=== PATIENT | male | born 1960 | race Caucasian/White ===

== ENCOUNTER 2020-04-08 15:22 | Outpatient (REF) | payer OTHER, SELFPAY ==
[2020-04-08 16:02] LABS: MANUAL DIFF FLAG NO
[2020-04-08 16:08] LABS: Basophils Percent Auto 0.7 % (0-2); Eosinophils Absolute Auto 0.1 X10*3/uL (0.0-0.4); Eosinophils Percent Auto 2.4 % (0-4); Hematocrit 44.4 % (42-52); Hemoglobin 14.2 g/dl (14.0-18.0); Imm Gran Abs Auto 0.02 X10*3/uL (0.00-0.03); Imm Gran Pct Auto 0.5 % (0.0-0.4); Lymphocytes Absolute Auto 1.1 X10*3/uL (1.2-4.9); Mean Corpuscular Hemoglobin 29.6 pg (27.0-33.0); Mean Corpuscular Volume 92.5 fL (80-98); Mean Platelet Volume 11.2 fL (9.4-12.4); Monocytes Absolute Auto 0.7 X10*3/uL (0.1-1.2); Monocytes Percent Auto 15.6 % (2-11); Neutrophils Absolute Auto 2.3 X10*3/uL (2.0-8.3); Neutrophils Percent Auto 53.8 % (45-73); Platelet Count 198 X10*3/uL (160-400); Red Cell Distribution Width 13.4 % (11.0-16.0); White Blood Count 4.2 X10*3/uL (4.8-10.8)
[2020-04-08 16:30] LABS: Alanine Aminotransferase 25 U/L (0-40); Albumin Level 4.1 g/dL (3.5-5.0); Alkaline Phosphatase 110 U/L (39-117); Anion Gap 9 (12-20); Aspartate Amino Transferase 21 U/L (5-37); Bilirubin Total 0.8 mg/dL (0.0-1.0); Blood Urea Nitrogen 18 mg/dL (9-16); Calcium 8.9 mg/dL (8.4-10.2); Carbon Dioxide 29 mmol/L (22-29); Chloride 102 mmol/L (96-108); Cholesterol 127 mg/dL; Estimated Glomerular Filt Rate > 60; Glucose Random 88 mg/dL (60-115); HDL Cholesterol 43 mg/dL; LDL Cholesterol Calculated 70 mg/dl; Potassium 4.2 mmol/L (3.3-5.1); Sodium 136 mmol/L (135-145); Total Protein 6.4 g/dL (6.5-8.0); Triglycerides 70 mg/dL
[2020-04-08 16:51] LABS: Prostate Specific Antigen 1.18 ng/mL (<0.05-4.0); T4 Thyroxine 9.7 ug/dL (4.5-12.0); Thyroid Stimulating Hormone 0.84 uIU/mL (0.32-4.0)
[2020-04-08 17:02] LABS: Folate 11.1 ng/mL (> or = 4.0); Vitamin B12 335 pg/mL (200-900)
== END 2020-04-08 15:23 | disposition home or self-care (01) ==
LOC: HO.LAB 15:22
PROVIDERS: PCP Internal Medicine; Visit Provider Internal Medicine
DX: Z00.00 Encounter for general adult medical examination without abnormal findings (principal); Z12.5 Encounter for screening for malignant neoplasm of prostate; E03.9 Hypothyroidism, unspecified; E66.9 Obesity, unspecified; E78.00 Pure hypercholesterolemia, unspecified
CPT/HCPCS: 36415; 80053; 80061; 82607; 82746; 84153; 84436; 84443; 85025

== ENCOUNTER 2020-11-30 08:33 | Outpatient (REF) | payer OTHER, SELFPAY ==
--- NOTE | ~2020-11-30 | FL_ITS ---
EXAMINATION: XR GI SERIES CLINICAL INFORMATION: Gastroesophageal reflux disease without esophagitis COMPARISON: None TECHNIQUE: Routine upper GI air-contrast study was performed. FINDINGS: Following oral administration of thick barium and effervescent granules there is normal propagation of bolus from the oral cavity through the pharynx, esophagus into stomach. There is no obstruction, narrowing or extrinsic compression. On placing patient supine and prone lying there is moderate gastroesophageal reflux with a small sliding hiatal hernia. The mucosal pattern of stomach and the duodenal bulb and the sweep is normal. FLUOROSCOPY TIME: 1.7 minutes DOSE AREA PRODUCT: 29.074 uGy-m2 (microgray-meter squared) FL/FL upper GI series IMPRESSION: Small sliding hiatal hernia with mild gastroesophageal reflux.
== END 2020-11-30 08:34 | disposition home or self-care (01) ==
LOC: HO.XRAY 08:33
PROVIDERS: Visit Provider Internal Medicine
DX: K21.9 Gastro-esophageal reflux disease without esophagitis (principal)
CPT/HCPCS: 74240

== ENCOUNTER 2021-04-12 13:31 | Outpatient (REF) | payer OTHER, SELFPAY ==
[2021-04-12 13:42] LABS: MANUAL DIFF FLAG NO
[2021-04-12 13:54] LABS: Basophils Percent Auto 0.6 % (0-2); Eosinophils Absolute Auto 0.2 X10*3/uL (0.0-0.4); Eosinophils Percent Auto 2.7 % (0-4); Hematocrit 50.4 % (42.0-52.0); Imm Gran Abs Auto 0.03 X10*3/uL (0.00-0.03); Imm Gran Pct Auto 0.5 % (0.0-0.4); Lymphocytes Absolute Auto 1.5 X10*3/uL (1.2-4.9); Lymphocytes Percent Auto 23.2 % (20-40); Mean Corpuscular HGB Conc 31.7 g/dl (31.0-36.0); Mean Corpuscular Hemoglobin 29.6 pg (27.0-33.0); Mean Corpuscular Volume 93.2 fL (80.0-98.0); Mean Platelet Volume 11.2 fL (9.4-12.4); Monocytes Absolute Auto 0.9 X10*3/uL (0.1-1.2); Monocytes Percent Auto 13.8 % (2-11); Neutrophils Absolute Auto 3.8 x10*3/uL (2.0-8.3); Neutrophils Percent Auto 59.2 % (45-73); Platelet Count 248 X10*3/uL (160-400); Red Blood Count 5.41 X10*6/uL (4.60-5.80); Red Cell Distribution Width 14.6 % (11.0-16.0); White Blood Count 6.4 X10*3/uL (4.8-10.8)
[2021-04-12 14:26] LABS: Alanine Aminotransferase 25 U/L (0-40); Alkaline Phosphatase 96 U/L (39-117); Anion Gap 12 (12-20); Aspartate Amino Transferase 20 U/L (5-37); Bilirubin Total 0.5 mg/dL (0.0-1.0); Blood Urea Nitrogen 18 mg/dL (9-16); Calcium 9.7 mg/dL (8.4-10.2); Carbon Dioxide 27 mmol/L (22-29); Chloride 106 mmol/L (96-108); Cholesterol 150 mg/dL; Estimated Glomerular Filt Rate > 60; Glucose Random 97 mg/dL (60-115); HDL Cholesterol 47 mg/dL; LDL Cholesterol Calculated 85 mg/dl; Potassium 4.9 mmol/L (3.3-5.1); Sodium 140 mmol/L (135-145); Total Protein 6.7 g/dL (6.5-8.0); Triglycerides 90 mg/dL
[2021-04-12 14:49] LABS: Free T4 (Free Thyroxine) 1.07 ng/dL (0.71-1.85); Thyroid Stimulating Hormone 3.68 uIU/mL (0.32-4.0)
[2021-04-12 15:33] LABS: Vitamin B12 451 pg/mL (200-900)
== END 2021-04-12 13:32 | disposition home or self-care (01) ==
LOC: HO.LAB 13:31
PROVIDERS: PCP Internal Medicine; Visit Provider Internal Medicine
DX: K21.9 Gastro-esophageal reflux disease without esophagitis (principal); E78.00 Pure hypercholesterolemia, unspecified
CPT/HCPCS: 36415; 80053; 80061; 82607; 82746; 84153; 84439; 84443; 85025

== ENCOUNTER 2021-11-19 10:19 | Outpatient (RCR) | payer OTHER, SELFPAY | END 2022-09-09 14:05 | disposition home or self-care (01) | LOC: HO.WCC 10:19 | PROVIDERS: PCP Internal Medicine; Visit Provider Physician Assistant | DX: Z09 Encounter for follow-up examination after completed treatment for conditions other than malignant neoplasm (principal); I87.2 Venous insufficiency (chronic) (peripheral); I73.9 Peripheral vascular disease, unspecified; Q82.0 Hereditary lymphedema; Z87.2 Personal history of diseases of the skin and subcutaneous tissue | CPT/HCPCS: 11042; 29580; 97597; 99212 ==

== ENCOUNTER 2022-05-12 15:29 | Outpatient (REF) | payer OTHER, SELFPAY ==
--- NOTE | ~2022-05-12 | XR_ITS ---
EXAMINATION: XR KNEE, LEFT CLINICAL INFORMATION: M25.562 - Pain in left knee COMPARISON: None available. TECHNIQUE: AP and lateral views of the left knee. FINDINGS: No fracture, dislocation, or destructive process. No focal joint narrowing or erosive change or visible chondrocalcinosis. There is mild thickening suprapatellar bursa consistent with borderline effusion. Hoffa's fat pad appears normal. XR/XR knee LT 2V IMPRESSION: Borderline effusion. No fracture, dislocation, or joint narrowing.
[2022-05-12 15:42] LABS: MANUAL DIFF FLAG NO
[2022-05-12 15:49] LABS: Basophils Absolute Auto 0.1 X10*3/uL (0.0-0.2); Basophils Percent Auto 0.8 % (0-2); Eosinophils Absolute Auto 0.1 X10*3/uL (0.0-0.4); Eosinophils Percent Auto 2.4 % (0-4); Hematocrit 48.7 % (42.0-52.0); Hemoglobin 16.2 g/dl (14.0-18.0); Imm Gran Abs Auto 0.03 X10*3/uL (0.00-0.03); Imm Gran Pct Auto 0.5 % (0.0-0.4); Lymphocytes Absolute Auto 1.5 X10*3/uL (1.2-4.9); Lymphocytes Percent Auto 25.3 % (20-40); Mean Corpuscular HGB Conc 33.3 g/dl (31.0-36.0); Mean Corpuscular Hemoglobin 30.2 pg (27.0-33.0); Mean Corpuscular Volume 90.9 fL (80.0-98.0); Mean Platelet Volume 11.1 fL (9.4-12.4); Monocytes Absolute Auto 0.8 X10*3/uL (0.1-1.2); Neutrophils Absolute Auto 3.4 x10*3/uL (2.0-8.3); Platelet Count 239 X10*3/uL (160-400); Red Blood Count 5.36 X10*6/uL (4.60-5.80); Red Cell Distribution Width 14.3 % (11.0-16.0); White Blood Count 5.9 X10*3/uL (4.8-10.8)
[2022-05-12 16:17] LABS: Alanine Aminotransferase 32 U/L (0-40); Albumin Level 3.9 g/dL (3.5-5.0); Alkaline Phosphatase 99 U/L (39-117); Anion Gap 13 (12-20); Aspartate Amino Transferase 24 U/L (5-37); Bilirubin Total 0.8 mg/dL (0.0-1.0); Blood Urea Nitrogen 25 mg/dL (9-16); Carbon Dioxide 24 mmol/L (22-29); Chloride 107 mmol/L (96-108); Cholesterol 149 mg/dL; Estimated Glomerular Filt Rate > 60; Glucose Random 96 mg/dL (60-115); HDL Cholesterol 44 mg/dL; LDL Cholesterol Calculated 89 mg/dl; Potassium 4.3 mmol/L (3.3-5.1); Sodium 140 mmol/L (135-145); Total Protein 6.4 g/dL (6.5-8.0); Triglycerides 81 mg/dL
[2022-05-12 16:47] LABS: Folate 11.8 ng/mL (> or = 4.0); Free T4 (Free Thyroxine) 1.12 ng/dL (0.71-1.85); Thyroid Stimulating Hormone 6.49 uIU/mL (0.32-4.0); Vitamin B12 477 pg/mL (200-900)
== END 2022-05-12 15:30 | disposition home or self-care (01) ==
LOC: HO.LAB 15:29
PROVIDERS: PCP Internal Medicine; Visit Provider Internal Medicine
DX: E78.00 Pure hypercholesterolemia, unspecified (principal); M25.562 Pain in left knee; E03.9 Hypothyroidism, unspecified
CPT/HCPCS: 36415; 73560; 80053; 80061; 82607; 82746; 84439; 84443; 85025

== ENCOUNTER 2022-08-16 09:01 | Outpatient (REF) | payer OTHER, SELFPAY ==
[2022-08-16 11:10] LABS: Alanine Aminotransferase 23 U/L (0-40); Albumin Level 4.1 g/dL (3.5-5.0); Alkaline Phosphatase 85 U/L (39-117); Anion Gap 15 (12-20); Aspartate Amino Transferase 18 U/L (5-37); Bilirubin Total 0.5 mg/dL (0.0-1.0); Blood Urea Nitrogen 26 mg/dL (9-16); Calcium 9.2 mg/dL (8.4-10.2); Carbon Dioxide 23 mmol/L (22-29); Chloride 103 mmol/L (96-108); Estimated Glomerular Filt Rate > 60; Glucose Random 88 mg/dL (60-115); Potassium 4.2 mmol/L (3.3-5.1); Sodium 137 mmol/L (135-145)
[2022-08-16 11:30] LABS: Free T4 (Free Thyroxine) 1.18 ng/dL (0.71-1.85); Thyroid Stimulating Hormone 4.12 uIU/mL (0.32-4.0)
== END 2022-08-16 09:02 | disposition home or self-care (01) ==
LOC: HO.LAB 09:01
PROVIDERS: PCP Internal Medicine; Visit Provider Internal Medicine
DX: E03.9 Hypothyroidism, unspecified (principal); L98.499 Non-pressure chronic ulcer of skin of other sites with unspecified severity
CPT/HCPCS: 36415; 80053; 84439; 84443

== ENCOUNTER 2022-08-26 11:42 | Outpatient (AMB) | payer OTHER, SELFPAY ==
--- NOTE | 2022-08-26 11:42 | A.OFFPC_ITS ---
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 Accompanied by: Self / Same As Patient Allergies No Known Allergies Allergy (Verified 08/26/22 11:43) Medication List - Last Reconciled 08/26/22 by Jess Turner MD acetaminophen 500 mg PO Q6H PRN cholecalciferol (vitamin D3) 50 mcg PO DAILY famotidine 20 mg PO BEDTIME levothyroxine 125 mcg PO QAM lovastatin 20 mg PO DAILY Tobacco use date assessed: 05/25/22 Dental Screening Dental Screen Date: 08/26/22 Did you have a dental visit in the last 12 months?: Yes Did you have a dental problem in the last 6 months where you did not have access to dental care?: No Was dental information given to patient?: Patient has dentist HPI Peripheral vasculardisease,hypothyroid,low protein HPI Details [age] year old obese male with hypothyroidism peripheral vascular disease ankle ulcer baking [facility] hypercholesterolemia GERD last seen in May and was advised blood work. Colonoscopy is up-to-date. PAtient had a procedure under Dr. Meza- 06/2022, bilateral ulcer right healed L still has the problem. awaiting compression pump for the LE patient has been doing good no nausea no vomiting no chest pains no shortness of breath no bowel bladder symptoms. PFSH Medical History Depression Foot deformity Hypercholesterolemia Hypothyroid Obesity (BMI 30-39.9) Tubular adenoma of colon Surgical History H/O foot surgery Hx of tonsillectomy Peripheral vascular disease Family History Mother Breast cancer in situ Social History Housing: House Alcohol intake: current Alcohol intake frequency: a few times a month Patient Tobacco Use Status: Never used Tobacco e-Cigarette/Vaping Use: Never Used Second Hand Smoke Exposure: No service: No Current occupational status: employed Cognitive needs: No Hearing needs: No Vision needs: No Questionnaire Thrive Questionnaire Date Thrive assessed: 05/25/22 I am a: Patient What is your living situation today?: I have a steady place to live Within the past 12 months, did the food you bought not last and you didn't have the money to get more?: Never true Within the past 12 months, did you worry whether your food would run out before you got money to buy more?: Never true Please select the resources that you would like help with: None MAGDA-7 AMB Questionnaire MAGDA-7 Date MAGDA - 7 assessed: 05/25/22 Source: Developed by Drs. Pan Stone, Desire Ann, Jonathan Gutierrez and colleagues, with an educational tal from [employer]. Physical exam (Primary Care) Vital Signs: Last Vital Signs Pulse 85 08/26/22 11:43 BP 126/78 08/26/22 11:43 Pulse Ox 97 08/26/22 11:43 Oxygen Delivery Method Room Air 08/26/22 11:43 BMI result Body Mass Index 35.6 Tobacco/Smoking Status: Tobacco use Status Tobacco use date assessed 05/25/22 08/26/22 11:48 Patient Tobacco Use Status Never used Tobacco 08/26/22 11:48 e-Cigarette/Vaping Use Never Used 08/26/22 11:48 Thrive Assessment: Date of Thrive Assessment Date Thrive assessed 05/25/22 08/26/22 11:48 Const General: alert; No acute distress Eyes Conjunctivae: conjunctivae normal Resp Auscultation: clear to auscultation bilaterally Cardio Rate: regular rate Rhythm: regular rhythm GI Inspection: Yes normal to inspection Extrem General: Yes normal to inspection and No edema Assessment and Plan Assessment & Plan (1) Ankle ulcer: Code(s): L97.309 - Non-pressure chronic ulcer of unspecified ankle with unspecified severity Plan: Patient is being managed by wound care (2) Hypercholesterolemia: Code(s): E78.00 - Pure hypercholesterolemia, unspecified Plan: Avoid fried foods, chicken skin, eggs, butter margarine, pastries and meat. Be it pork or beef they have a lot of cholesterol LDL goal below 70 and triglyceride of less than 150 (3) Obesity (BMI 30-39.9): Code(s): E66.9 - Obesity, unspecified Plan: Diet and exercise (4) Peripheral vascular disease: Comment: Dr. MEZA leg procedure laser EV LT Phlebectomy October 2017 Code(s): I73.9 - Peripheral vascular disease, unspecified Plan: Patient follows up with vascular surgeon (5) Hypothyroid: Code(s): E03.9 - Hypothyroidism, unspecified Qualifiers: Hypothyroidism type: acquired Qualified Code(s): E03.9 - Hypothyroidism, unspecified Plan: Continue with thyroid medication Orders: Orders Comprehensive Met. Panel 3 Months E78.00 - Pure hypercholesterolemia, unspecified Lipid Panel 3 Months E78.00 - Pure hypercholesterolemia, unspecified Complete Blood Count Auto Diff 3 Months E78.00 - Pure hypercholesterolemia, unspecified Medications: Refilled lovastatin 20 mg PO DAILY 90 tabs 2RF E78.00 - Pure hypercholesterolemia, unspecified Coding Level of Care Code Est Pt Level 4 (56115) Diagnoses Ankle ulcer L97.309 Hypercholesterolemia E78.00 Obesity (BMI 30-39.9) E66.9 Peripheral vascular disease I73.9 Hypothyroid E03.9 Hypothyroidism type: acquired
[2022-08-26 11:43] VITALS: BP 126/78; PULSE 85; O2SAT 97; BMI 35.6
== END 2022-08-26 13:27 | disposition home or self-care (01) ==
PROVIDERS: Visit Provider Internal Medicine
DX: E03.9 Hypothyroidism, unspecified (principal); L97.309 Non-pressure chronic ulcer of unspecified ankle with unspecified severity; Z68.35 Body mass index [BMI] 35.0-35.9, adult; I73.9 Peripheral vascular disease, unspecified; E78.00 Pure hypercholesterolemia, unspecified; E66.9 Obesity, unspecified
CPT/HCPCS: 99214

== ENCOUNTER 2022-11-15 10:09 | Outpatient (REF) | payer OTHER, SELFPAY | END 2022-11-15 10:10 | disposition home or self-care (01) | LOC: HO.LAB 10:09 | PROVIDERS: PCP Internal Medicine; Visit Provider Internal Medicine | DX: E78.00 Pure hypercholesterolemia, unspecified (principal); E03.9 Hypothyroidism, unspecified | CPT/HCPCS: 36415; 80053; 80061; 84439; 84443; 85025 ==

== ENCOUNTER 2022-11-21 08:57 | Outpatient (AMB) | payer OTHER, SELFPAY ==
[2022-11-21 09:01] VITALS: BP 132/80; PULSE 79; O2SAT 97; BMI 36.3
--- NOTE | 2022-11-21 09:01 | A.OFFPC_ITS ---
Vital Signs 11/21/22 09:01 Height 5 ft 10 in Weight 253 lb BMI 36.3 BP 132/80 Blood Pressure Location Lt brachial Position Sitting Pulse 79 Pulse Source Pulse Oximeter Temp Source Skin Pulse Oximetry (%) 97 Oxygen Delivery Method Room Air Intake Visit Reasons: PE Allergies No Known Allergies Allergy (Verified 11/21/22 09:03) Medication List - Last Reconciled 11/21/22 by Jess Turner MD acetaminophen 500 mg PO Q6H PRN cholecalciferol (vitamin D3) 50 mcg PO DAILY famotidine 20 mg PO BEDTIME levothyroxine 125 mcg PO QAM lovastatin 20 mg PO DAILY Tobacco use date assessed: 05/25/22 Dental Screening Dental Screen Date: 11/21/22 Did you have a dental visit in the last 12 months?: Yes Did you have a dental problem in the last 6 months where you did not have access to dental care?: No Was dental information given to patient?: Patient has dentist HPI PE HPI Details 62-year-old obese male with peripheral v ascular disease hypercholesterolemia hypothyroidism coming in for physical exam last seen in August 2022. Patient is up-to-date with colonoscopy February 2019. Patient has an ankle ulcer that is being followed up by Wound Care.. last injection with Dr. Meza done with wound care. has pump for lymphedema. [facility] Medical History Depression Foot deformity Hypercholesterolemia Hypothyroid Obesity (BMI 30-39.9) Tubular adenoma of colon Surgical History H/O foot surgery Hx of tonsillectomy Peripheral vascular disease Family History (Updated 11/21/22 @ 09:13 by Jess Turner MD) Mother Breast cancer in situ Son Thyroid cancer Social History (Updated 11/21/22 @ 09:14 by Jess Turner MD) Housing: House Alcohol intake: current Alcohol intake frequency: a few times a month Patient Tobacco Use Status: Never used Tobacco e-Cigarette/Vaping Use: Never Used Second Hand Smoke Exposure: No service: No Current occupational status: employed Cognitive needs: No Hearing needs: No Vision needs: No Questionnaire PHQ-9 Over the last 2 weeks, how often have you been bothered by any of the following problems? 1. Little interest or pleasure in doing things: not at all 2. Feeling down, depressed, or hopeless: not at all 3. Trouble falling or staying asleep, or sleeping too much: not at all 4. Feeling tired or having little energy: not at all 5. Poor appetite or overeating: not at all 6. Feeling bad about yourself - or that you are a failure or have let yourself or your family down: not at all 7. Trouble concentrating on things, such as reading the newspaper or watching television: not at all 8. Moving or speaking so slowly that other people could have noticed. Or the opposite - being so fidgety or restless that you have been moving around a lot more than usual: not at all 9. Thoughts that you would be better off or of hurting yourself in some way: not at all Total score: 0 Depression Screening Interpretation: Negative Depression Screening Done: Yes Source: Developed by Drs. Pan Stone, Desire Ann, Jonathan Gutierrez and colleagues, with an educational tal from [employer]. Thrive Questionnaire Date Thrive assessed: 05/25/22 AUDIT C Alcohol Use Questionnaire (AUDIT-C) 1. How often do you have a drink containing alcohol?: 2-4 times a month 2. How many drinks containing alcohol do you have on a typical day when you are drinking?: 1 or 2 3. How often do you have six or more drinks on one occasion?: Never Total Score: 2 MAGDA-7 AMB Questionnaire MAGDA-7 Date MAGDA - 7 assessed: 11/21/22 Feeling nervous, anxious, or on edge: 0 = Not at all Not being able to stop or control worryin = Not at all Worrying too much about different things: 0 = Not at all Trouble relaxin = Not at all Being so restless that it is hard to sit still: 0 = Not at all Becoming easily annoyed or irritable: 0 = Not at all Feeling afraid as if something awful might happen: 0 = Not at all Total MAGDA-7 score (0-4 normal; 5-9 mild; 10-14 moderate; 15-21 severe): 0 Source: Developed by Drs. Pan Stone, Jonathan Bullard and colleagues, with an educational tal from [employer]. Review of Systems Const Denies poor appetite and Denies weakness Eyes Denies no additional complaints ENT Reports Normal hearing present, Denies dizziness, Denies nasal congestion, Denies tinnitus and Denies sore throat Card Denies chest pain, Denies syncope, Denies rapid heart rate and Denies dyspnea Resp Denies cough and Denies dyspnea GI Denies change in stool character, Reports constipation, Denies diarrhea, Denies nausea and Denies vomiting Denies dysuria and Denies urinary frequency Neuro Reports Normal hearing present, Denies confusion, Denies dizziness, Denies syncope and Denies weakness Psych Denies confusion Physical exam (Primary Care) Vital Signs: Last Vital Signs Pulse 79 11/21/22 09:01 BP 132/80 11/21/22 09:01 Pulse Ox 97 11/21/22 09:01 Oxygen Delivery Method Room Air 11/21/22 09:01 BMI result Body Mass Index 36.3 Tobacco/Smoking Status: Tobacco use Status Tobacco use date assessed 05/25/22 11/21/22 09:06 Patient Tobacco Use Status Never used Tobacco 11/21/22 09:06 e-Cigarette/Vaping Use Never Used 11/21/22 09:06 PHQ-9: PHQ-9 Score PHQ-9: Total score 0 11/21/22 09:06 Depression Screening Interpretation: Negative Thrive Assessment: Date of Thrive Assessment Date Thrive assessed 05/25/22 11/21/22 09:06 Const General: No confusion Orientation/consciousness: No confusion HENMT Head: Yes normocephalic Ears: external ears normal and TM's normal bilaterally Face and sinus: Yes normal facial exam Mouth: moist mucous membranes Throat: Yes tonsils normal Eyes Conjunctivae: conjunctivae normal Pupils: Equal, round and reactive pupils present and Pupil accommodation reflex normal Direct Ophthalmoscopy: normal light reflex Neck Neck: No lymphadenopathy Thyroid: Thyroid normal Chest Chest palpation & inspection: normal inspection of the chest Resp Effort & Inspection: normal respiratory effort and no audible wheezes Auscultation: clear to auscultation bilaterally, no crackles, no wheezes and lung sounds not diminished Cardio Rate: regular rate Rhythm: regular rhythm Peripheral pulses: radial pulses present and dorsalis pedis present GI Other: guaiac stools negative Palpation (GI): no masses Auscultation: normal bowel sounds and normoactive bowel sounds Male General Exam: Yes normal external exam Skin General skin exam: no rashes or lesions noted Rashes: no rashes Neuro General: No confusion Cranial nerves: Yes Equal, round and reactive pupils present and Yes Normal hearing present Cognition (Neuro): normal cognition Gait exam (Neuro): Normal gait present Motor exam (neuro): 5/5 motor strength present throughout Deep tendon reflexes (DTR's): Right brachioradialis reflex intensity grade: 2+, Left brachioradialis reflex intensity grade: 2+, Right patellar reflex intensity grade: 2+ and Left patellar reflex intensity grade: 2+ Extrem Other: Interdigital on the toes bilaterally but pulses are good whitish skin General: No edema Assessment and Plan Assessment & Plan (1) Annual physical exam: Code(s): Z00.00 - Encounter for general adult medical examination without abnormal findings (2) Obesity (BMI 30-39.9): Code(s): E66.9 - Obesity, unspecified Plan: Diet and exercise (3) Hypercholesterolemia: Code(s): E78.00 - Pure hypercholesterolemia, unspecified Plan: Avoid fried foods, chicken skin, eggs, butter margarine, pastries and meat. Be it pork or beef they have a lot of cholesterol LDL goal of less than 130 and triglyceride of less than 150. Patient is on lovastatin 20 mg once a day (4) Hypothyroid: Code(s): E03.9 - Hypothyroidism, unspecified Qualifiers: Hypothyroidism type: acquired Qualified Code(s): E03.9 - Hypothyroidism, unspecified Plan: Continue with thyroid medication November 2022 last blood work (5) Peripheral vascular disease: Comment: Dr. MEZA leg procedure laser EV LT Phlebectomy October 2017 Code(s): I73.9 - Peripheral vascular disease, unspecified Plan: When sitting down elevate the legs, exercise, and support stockings. Continue to follow-up with vascular surgeon (6) GERD (gastroesophageal reflux disease): Code(s): K21.9 - Gastro-esophageal reflux disease without esophagitis Plan: Avoid the foods that causes that usually spicy foods, tomato products, juices, coffee, soda and foods that your sensitive to. After eating do not lie down, allow 3-4 hours before in lie down. And keep the head of bed above 30 degrees to avoid the acid from going up. (7) Ankle ulcer: Code(s): L97.309 - Non-pressure chronic ulcer of unspecified ankle with unspecified severity Plan: Patient follows up with with care (8) Tinea pedis of both feet: Code(s): B35.3 - Tinea pedis Plan: Discussed about athlete's foot cream twice a day for 1 month then can use antifungal powder for prevention. Reminded interdigital skin area Orders: Orders Thyroid Stimulating Hormone 6 Weeks E03.9 - Hypothyroidism, unspecified Prostate Specific Antigen Scr 6 Weeks E78.00 - Pure hypercholesterolemia, unspecified AMB EKG-In Office Today E03.9 - Hypothyroidism, unspecified Free T4 (Free Thyroxine) 6 Weeks E03.9 - Hypothyroidism, unspecified Medications: Changed From levothyroxine 125 mcg PO QAM 90 tabs 2RF E03.9 - Hypothyroidism, unspecified To levothyroxine 137 mcg PO QAM 90 tabs 2RF E03.9 - Hypothyroidism, unspecified Refilled famotidine 20 mg PO BEDTIME 90 tabs 3RF K21.9 - Gastro-esophageal reflux disease without esophagitis Coding Level of Care Code Est Pt Prev Care 40-64y(78178) Diagnoses Annual physical exam Z00.00 Obesity (BMI 30-39.9) E66.9 Hypercholesterolemia E78.00 Acquired hypothyroidism E03.9 Hypothyroidism type: acquired Peripheral vascular disease I73.9 GERD (gastroesophageal reflux disease) K21.9 Ankle ulcer L97.309 Tinea pedis of both feet B35.3
== END 2022-11-21 09:35 | disposition home or self-care (01) ==
PROVIDERS: Visit Provider Internal Medicine
DX: Z00.00 Encounter for general adult medical examination without abnormal findings (principal); I73.9 Peripheral vascular disease, unspecified; L97.309 Non-pressure chronic ulcer of unspecified ankle with unspecified severity; E66.9 Obesity, unspecified; Z68.36 Body mass index [BMI] 36.0-36.9, adult; E78.00 Pure hypercholesterolemia, unspecified; E03.9 Hypothyroidism, unspecified; K21.9 Gastro-esophageal reflux disease without esophagitis; B35.3 Tinea pedis
CPT/HCPCS: 99396

== ENCOUNTER 2023-01-13 07:16 | Outpatient (REF) | payer OTHER, SELFPAY ==
[2023-01-13 08:52] LABS: Free T4 (Free Thyroxine) 1.19 ng/dL (0.71-1.85); Thyroid Stimulating Hormone 1.27 uIU/mL (0.32-4.0)
== END 2023-01-13 07:17 | disposition home or self-care (01) ==
LOC: HO.LAB 07:16
PROVIDERS: PCP Internal Medicine; Visit Provider Internal Medicine
DX: Z12.5 Encounter for screening for malignant neoplasm of prostate (principal); E03.9 Hypothyroidism, unspecified; E78.00 Pure hypercholesterolemia, unspecified
CPT/HCPCS: 36415; 84153; 84439; 84443

== ENCOUNTER 2023-05-10 16:04 | Outpatient (REF) | payer OTHER, SELFPAY ==
[2023-05-10 16:14] LABS: MANUAL DIFF FLAG NO
[2023-05-10 17:35] LABS: Basophils Absolute Auto 0.1 X10*3/uL (0.0-0.2); Eosinophils Absolute Auto 0.2 X10*3/uL (0.0-0.4); Eosinophils Percent Auto 3.5 % (0-4); Hematocrit 44.9 % (42.0-52.0); Hemoglobin 14.5 g/dl (14.0-18.0); Imm Gran Abs Auto 0.04 X10*3/uL (0.00-0.03); Imm Gran Pct Auto 0.8 % (0.0-0.4); Lymphocytes Absolute Auto 1.4 X10*3/uL (1.2-4.9); Mean Corpuscular HGB Conc 32.3 g/dl (31.0-36.0); Mean Corpuscular Hemoglobin 29.7 pg (27.0-33.0); Mean Platelet Volume 11.6 fL (9.4-12.4); Monocytes Absolute Auto 0.7 X10*3/uL (0.1-1.2); Monocytes Percent Auto 13.3 % (2-11); Neutrophils Absolute Auto 2.8 x10*3/uL (2.0-8.3); Neutrophils Percent Auto 54.4 % (45-73); Platelet Count 217 X10*3/uL (160-400); Red Blood Count 4.88 X10*6/uL (4.60-5.80); Red Cell Distribution Width 13.9 % (11.0-16.0); White Blood Count 5.1 X10*3/uL (4.8-10.8)
[2023-05-10 18:19] LABS: Alanine Aminotransferase 27 U/L (0-40); Albumin Level 3.7 g/dL (3.5-5.0); Alkaline Phosphatase 96 U/L (39-117); Anion Gap 10 (12-20); Aspartate Amino Transferase 19 U/L (5-37); Bilirubin Total 0.4 mg/dL (0.0-1.0); Blood Urea Nitrogen 18 mg/dL (9-16); Calcium 9.1 mg/dL (8.4-10.2); Carbon Dioxide 28 mmol/L (22-29); Chloride 106 mmol/L (96-108); Cholesterol 118 mg/dL (<200); Estimated Glomerular Filt Rate > 60; Glucose Random 82 mg/dL (60-115); HDL Cholesterol 41 mg/dL (>40); LDL Cholesterol Calculated 67 mg/dL (<100); Sodium 140 mmol/L (135-145); Total Protein 6.4 g/dL (6.5-8.0); Triglycerides 54 mg/dL (<150)
[2023-05-10 18:28] LABS: Free T4 (Free Thyroxine) 1.21 ng/dL (0.71-1.85); Thyroid Stimulating Hormone 0.86 uIU/mL (0.32-4.0)
[2023-05-10 18:40] LABS: Folate 10.4 ng/mL (> or = 4.0); Prostate Specific Antigen Scr 1.07 ng/mL (<0.05-4.0); Vitamin B12 501 pg/mL (200-900)
== END 2023-05-10 16:05 | disposition home or self-care (01) ==
LOC: HO.LAB 16:04
PROVIDERS: PCP Internal Medicine; Visit Provider Internal Medicine
DX: Z12.5 Encounter for screening for malignant neoplasm of prostate (principal); E03.9 Hypothyroidism, unspecified; E78.00 Pure hypercholesterolemia, unspecified
CPT/HCPCS: 36415; 80053; 80061; 82607; 82746; 84153; 84439; 84443; 85025

== ENCOUNTER → 2023-05-11 07:13 | Outpatient (REF) | payer OTHER, SELFPAY ==
--- NOTE | 2023-05-11 07:57 | ECG_ITS ---
Test Reason : hypothyroidism Blood Pressure : / mmHG Vent. Rate : 094 BPM Atrial Rate : 308 BPM P-R Int : 000 ms QRS Dur : 146 ms QT Int : 396 ms P-R-T Axes : 077 062 028 degrees QTc Int : 495 ms Atrial flutter with variable A-V block with premature ventricular or aberrantly conducted complexes Right bundle branch block Abnormal ECG No previous ECGs available Referred By: Jess Turner Electronically Signed By:BERNIE IGLESIAS MD
== END ==
LOC: HO.CARD 07:13
PROVIDERS: PCP Internal Medicine; Visit Provider Internal Medicine
DX: E03.9 Hypothyroidism, unspecified (principal)
CPT/HCPCS: 93005

== ENCOUNTER → 2023-05-11 07:57 | Outpatient (BNV) | payer OTHER, SELFPAY | PROVIDERS: PCP Internal Medicine; Visit Provider Internal Medicine Cardiovascular Disease | DX: R94.31 Abnormal electrocardiogram [ECG] [EKG] (principal) | CPT/HCPCS: 93010 ==

== ENCOUNTER 2023-05-11 08:22 | Emergency (ER) | payer OTHER, SELFPAY ==
--- NOTE | ~2023-05-11 | XR_ITS ---
EXAMINATION: XR CHEST CLINICAL INFORMATION: Rapid heart rate COMPARISON: None available. TECHNIQUE: 2 views of the chest were obtained. FINDINGS: No significant abnormality is noted involving the heart, lungs, mediastinum, bony thorax or soft tissues. XR/XR chest 2V IMPRESSION: Unremarkable examination.
--- NOTE | 2023-05-11 08:25 | ECG_ITS ---
Test Reason : palpitations Blood Pressure : / mmHG Vent. Rate : 083 BPM Atrial Rate : 312 BPM P-R Int : 000 ms QRS Dur : 136 ms QT Int : 402 ms P-R-T Axes : 072 024 019 degrees QTc Int : 472 ms Atrial flutter with variable A-V block with premature ventricular or aberrantly conducted complexes Right bundle branch block Possible Inferior infarct , age undetermined Abnormal ECG When compared with ECG of 11-MAY-2023 08:02, Inferior infarct is now Present Referred By: Generic ED Physician Electronically Signed By:BERNIE IGLESIAS MD
[2023-05-11 08:39] VITALS: BP 135/83; PULSE 80; RESP 16; TEMP 36.8; O2SAT 98; BMI 33.9
--- NOTE | 2023-05-11 08:42 | ED_ITS ---
HPI - General Adult General Chief complaint: Arrhythmia/Palpitations Stated complaint: Aflutter Time Seen by Provider: 05/11/23 08:41 Source: patient Mode of arrival: ambulatory Limitations: no limitations History of Present Illness HPI narrative: Patient is a 62 year old assigned male at with a history of GERD, HLD, hypothyroidism, and PVD presenting to the emergency department today with a possible arrhythmia. Patient states that at his last PCP visit, his doctor heard something when listening to his heart and sent him for an EKG. States he was getting his EKG today and they brought him here. Patient states that he has gained some weight as of recently and has had some SOB with exertion but otherwise feels fine. Patient denies any dizziness, lightheadedness, abdominal pain, nausea, vomiting, fever, chills, blurry vision, double vision, loss of vision, chest pain, back pain, night sweats, pain with urination, increased urinary frequency, increased urinary urgency, blood in his urine or stool, syncope or a near syncopal episode, recent trauma or falls, bowel incontinence, bladder incontinence, bowel retention, bladder retention, or any other complaints at this time. Relieving factors: none Exacerbating factors: none Associated symptoms: shortness of breath (with exertion) Treatments prior to arrival: none Related Data Home Medications ?Medication ?Instructions ?Recorded ?Confirmed acetaminophen 500 mg tablet 500 mg PO Q6H PRN 04/28/20 11/21/22 cholecalciferol (vitamin D3) 50 50 mcg PO DAILY 04/28/20 11/21/22 mcg (2,000 unit) capsule Previous Rx's ?Medication ?Instructions ?Recorded lovastatin 20 mg tablet 20 mg PO DAILY #90 tabs 08/26/22 famotidine 20 mg tablet 20 mg PO BEDTIME #90 tabs 11/21/22 levothyroxine 137 mcg tablet 137 mcg PO QAM #90 tabs 11/21/22 apixaban 5 mg tablet (Eliquis) 5 mg PO BID #60 tabs 05/11/23 metoprolol succinate 25 mg 25 mg PO DAILY #30 tabs 05/11/23 tablet,extended release 24 hr Allergies Allergy/AdvReac Type Severity Reaction Status Date / Time No Known Allergies Allergy Verified 05/11/23 08:40 Review of Systems 2 Constitutional: Constitutional: Reports no additional constitutional complaints, Denies chills, Denies fever(s) and Denies night sweats Eyes: Eyes: Reports no additional eye complaints, Denies blurry vision, Denies change in vision, Denies diplopia, Denies eye discharge, Denies loss of vision and Denies eye pain ENT: Denies dizziness Cardiovascular: Cardiovascular: Reports no additional cardiovascular complaints, Denies chest pain, Denies lightheadedness, Denies Loss of Consciousness and Reports dyspnea (with exertion) Respiratory: Respiratory: Reports no additional respiratory complaints and Reports dyspnea (with exertion) Gastrointestinal: Gastrointestinal: Reports no additional gastrointestinal complaints, Denies abdominal pain, Denies melena, Denies hematochezia, Denies change in bowel habits and Denies change in stool character Genitourinary: Genitourinary: Reports no additional male genitourinary complaints, Denies hematuria, Denies oliguria, Denies difficulty urinating, Denies dysuria, Denies urinary frequency, Denies urinary hesitancy, Denies urinary incontinence and Denies urinary urgency Musculoskeletal: Musculoskeletal: Reports no additional musculoskeletal complaints, Denies numbness and Denies tingling Neurologic: Denies dizziness, Denies loss of vision, Denies numbness and Denies tingling Psychiatric: Psychiatric: Reports no additional psychiatric complaints Endocrine: Endocrine: Reports no additional endocrine complaints Hematologic/Lymphatic: Hematologic/Lymphatic: Reports no additional hematologic/lymphatic complaints Allergic/Immunologic: Allergic/Immunologic: Reports no additional allergic/immunologic complaints PMFSH Past Medical History Attestation statement: The following information was validated with the patient. Source: old records reviewed and nursing notes reviewed Medical History Tubular adenoma of colon Depression Hypercholesterolemia Obesity (BMI 30-39.9) Foot deformity Hypothyroid Surgical History Hx of tonsillectomy H/O foot surgery Peripheral vascular disease Family History Family History Mother Breast cancer in situ Son Thyroid cancer Social History Social History Housing: House Alcohol intake: current Alcohol intake frequency: a few times a month Patient Tobacco Use Status: Never used Tobacco e-Cigarette/Vaping Use: Never Used Second Hand Smoke Exposure: No Advance Directives: No Advance Directives Information Provided: No service: No Current occupational status: employed Cognitive needs: No Hearing needs: No Vision needs: No Physical Exam ED Vital Signs: Vital Signs - 24 hr 05/11/23 08:39 05/11/23 09:36 05/11/23 11:35 Temperature 98.3 F 97.7 F Pulse Rate 80 82 80 Respiratory Rate 16 14 18 Blood Pressure 135/83 143/86 H 127/69 Pulse Oximetry 98 100 Oxygen Delivery Method Room Air Room Air Room Air Oxygen Flow Rate 97 05/11/23 12:45 Temperature 97.7 F Pulse Rate 80 Respiratory Rate 18 Blood Pressure 127/69 Pulse Oximetry 97 Oxygen Delivery Method Room Air Oxygen Flow Rate BMI result Body Mass Index 33.9 Const General: cooperative, no acute distress, alert and awake Nutritional Appearance: well nourished Orientation/consciousness: patient oriented x3 Limitations: no limitations HENMT Head: Yes normal to inspection and Yes atraumatic Ears: hearing grossly normal bilaterally and external ears normal General nose exam: Normal external nose present, no nasal discharge noted and no epistaxis Face and sinus: Yes normal facial exam, No abrasion and No laceration Mouth: Normal oral and palatal mucosa present, no drooling and no muffled voice Eyes General: appearance normal, both eyes and all related structures Periorbital: periorbital findings normal Eyelids: Yes eyelids normal Conjunctivae: conjunctivae normal Pupils: Equal, round and reactive pupils present EOM: EOMs intact bilaterally Neck Neck: Yes normal visual inspection, Yes full ROM and Yes no lymphadenopathy Chest Chest palpation & inspection: normal inspection of the chest Resp Effort & Inspection: normal respiratory effort and able to speak in complete sentences Auscultation: clear to auscultation bilaterally Cardio Rate: regular rate Rhythm: abnormal rhythm irregularly irregular GI Inspection: Yes normal to inspection Neuro General: patient oriented x3 and moves all extremities Cranial nerves: Yes Equal, round and reactive pupils present Cognition (Neuro): normal cognition Motor exam (neuro): 5/5 motor strength present throughout Sensory Exam: Normal double simultaneous stimulation for sensation Coordination: [id number]-[id number] test normal Extrem General: Yes normal to inspection, Yes full ROM and Yes capillary refill normal Psych Appearance: grossly normal Mental Status: mental status grossly normal Affect: normal affect Attitude: cooperative Thought process: Normal thought process present Thought content: Normal thought content present Insight: Good insight present (Psych) Medical Decision Making Medical Decision Making [facility] Narrative: Patient is a 62 year old assigned male at with a history of GERD, HLD, hypothyroidism, and PVD presenting to the emergency department today with an arrhythmia. Patient's physical exam showed atrial fib/flutter. Patient's blood work was unremarkable. Patient's EKG showed atrial flutter. Patient's chest x- ray showed no acute process. Given this cardiac rhythm is new for the patient, I consulted with cardiology who recommended starting the patient on Eliquis and Metoprolol ER 25mg QAM and following up with their team on an outpatient basis. I explained my physical exam findings as well as all test results to the patient. I answered all questions asked by the patient. I stressed the importance of the patient taking his medication as prescribed. I stressed the importance of the patient following up with his primary care provider and a hospice liaison. I stressed the importance of the patient returning to the emergency department immediately if his symptoms were to worsen or if he were to develop any dizziness, shortness of breath, difficulty breathing, chest pain, blurry vision, loss of vision, nausea, vomiting, abdominal pain, fever, chills, back pain, or any other complaints. Patient verbalized agreement and understanding with this treatment plan and discharge. Differential Diagnosis Differential Diagnoses: The differential diagnosis associated with the presentation includes Atrial flutter Atrial fibrillation Arrhythmia Admission/Observation Consideration of admission/observation: Escalation of care including admission/observation considered Patient would have been admitted to the hospital had his work up had any findings where hospital admission was appropriate and his clinical presentation warranted hospital admission. Consult Healthcare Provider Management of the patient was discussed with: Teacher Education Director (spoke with the cardiology team as noted in the MDM Rationale portion of this note.) Lab Data [facility] Lab Attestation statement: I reviewed the patient's lab results. My interpretation of these results are in the MDM Rationale portion of this note. 05/11/23 09:40 05/11/23 09:40 Labs: Lab Results 05/11/23 Range/Units 09:40 WBC 5.0 (4.8-10.8) X10*3/uL RBC 4.77 (4.60-5.80) X10*6/uL Hgb 14.1 (14.0-18.0) g/dl Hct 43.7 (42.0-52.0) % MCV 91.6 (80.0-98.0) fL MCH 29.6 (27.0-33.0) pg MCHC 32.3 (31.0-36.0) g/dl RDW 13.9 (11.0-16.0) % Plt Count 209 (160-400) X10*3/uL MPV 10.8 (9.4-12.4) fL Immature Gran % (Auto) 1.2 H (0.0-0.4) % Neut % (Auto) 63.7 (45-73) % Lymph % (Auto) 19.6 L (20-40) % Dixon % (Auto) 11.9 H (2-11) % Eos % (Auto) 2.6 (0-4) % Baso % (Auto) 1.0 (0-2) % Lymph # (Auto) 1.0 L (1.2-4.9) X10*3/uL Dixon # (Auto) 0.6 (0.1-1.2) X10*3/uL Eos # (Auto) 0.1 (0.0-0.4) X10*3/uL Baso # (Auto) 0.1 (0.0-0.2) X10*3/uL Abs Immat Gran (auto) 0.06 H (0.00-0.03) X10*3/uL Absolute Neuts (auto) 3.2 (2.0-8.3) x10*3/uL Absolute Nucleated RBC 0.000 (0.0-0.012) X10*3/uL Nucleated RBC % (auto) 0.0 (0.0-0.2) /100WBC Sodium 138 (135-145) mmol/L Potassium 4.5 (3.3-5.1) mmol/L Chloride 107 (96-108) mmol/L Carbon Dioxide 25 (22-29) mmol/L Anion Gap 11 L (12-20) BUN 26 H (9-16) mg/dL Creatinine 1.22 (0.5-1.4) mg/dL Estim Creat Clear Calc 82.6 Estimated GFR > 60 Random Glucose 108 (60-115) mg/dL Calcium 8.9 (8.4-10.2) mg/dL Magnesium 2.4 (1.6-2.6) mg/dL Total Bilirubin 0.3 (0.0-1.0) mg/dL AST 20 (5-37) U/L ALT 26 (0-40) U/L Alkaline Phosphatase 92 (39-117) U/L Troponin I High Sens < 2.7 (<3.5-35.0) ng/L B-Natriuretic Peptide 25 (<100) pg/mL Total Protein 6.6 (6.5-8.0) g/dL Albumin 3.9 (3.5-5.0) g/dL TSH 0.75 (0.32-4.0) uIU/mL Influenza Type A (PCR) NEGATIVE (Negative) Influenza Type B (PCR) NEGATIVE (Negative) RSV RNA Qual (PCR) NEGATIVE (Negative) SARS-CoV-2 RNA (RT-PCR) NEGATIVE (Negative) Independent Interpretation I performed an independent interpretation of an: EKG and Plain X-Ray Interpretation: My interpretation is in agreement with the radiologist's impression of this imaging study. - EXAMINATION: XR CHEST CLINICAL INFORMATION: Rapid heart rate COMPARISON: None available. TECHNIQUE: 2 views of the chest were obtained. FINDINGS: No significant abnormality is noted involving the heart, lungs, mediastinum, bony thorax or soft tissues. XR/XR chest 2V IMPRESSION: Unremarkable examination. Dictated By: Gustavo Howard MD Signed By: Electronically signed by Gustavo Howard MD 05/11/23 0949 - Vent. Rate: 083 BPM Atrial Rate: 312 BPM P-R Int: 000 ms QRS Dur: 136 ms QT Int: 402 ms P-R-T Axes: 072 024 019 degrees QTc Int: 472 ms Atrial flutter with variable A-V block with premature ventricular or aberrantly conducted complexes Right bundle branch block Possible Inferior infarct , age undetermined Abnormal ECG When compared with ECG of 11-MAY-2023 08:02, Inferior infarct is now Present Electronically Signed By:JORGE IGLESIAS MD Dictated By: Jorge Iglesias MD Signed By: Electronically signed by Jorge Iglesias MD 05/11/23 0957 Radiology Impression Discussion of test interpretation with radiology: I have reviewed the radiologist's reading. Prescription Management I considered prescription management with: Other (patient started on Eliquis and Metoprolol) Critical Care Time Critical Care Time Critical Care Time: Yes Total Critical Care Time: 77 Attestation: I spent 77 minutes of Critical Care Time with this patient. This does not include time spent on separately reported billable procedures. Discharge Plan Discharge Clinical Impression: Atrial fibrillation/flutter Patient Disposition: Home, Self-Care Instructions: Atrial Flutter (DC), Blood Thinners (ED) Additional Instructions: Follow up with your primary care provider and the hospice liaison. Return to the emergency department immediately if your symptoms worsen or if you develop any dizziness, shortness of breath, difficulty breathing, chest pain, blurry vision, loss of vision, nausea, vomiting, abdominal pain, fever, chills, back pain, or any other complaints. Prescriptions: New Eliquis 5 mg tablet 5 mg PO BID Qty: 60 0RF metoprolol succinate 25 mg tablet extended release 24 hr 25 mg PO DAILY Qty: 30 0RF No Action cholecalciferol (vitamin D3) 50 mcg (2,000 unit) capsule 50 mcg PO DAILY acetaminophen 500 mg tablet 500 mg PO Q6H PRN famotidine 20 mg tablet 20 mg PO BEDTIME Qty: 90 3RF levothyroxine 137 mcg tablet 137 mcg PO QAM Qty: 90 2RF lovastatin 20 mg tablet 20 mg PO DAILY Qty: 90 2RF Referrals: [facility] [place] Cardiovascular Services [Provider Group] (Call to establish and follow up with a hospice liaison. I consulted Dr. Iglesias during your ED visit on 05/11/2023.) Jess Turner MD [Primary Care Provider] - Stand Alone Forms: Work/School Release Interventions: ED Discharge Assessment Last Done: 05/11/23 12:45 Discharge Date/Time: 05/11/23 12:47 Print Language: Lao
[2023-05-11 09:36] VITALS: BP 143/86; PULSE 82; RESP 14; O2SAT 100
[2023-05-11 09:45] LABS: MANUAL DIFF FLAG NO
[2023-05-11 09:46] LABS: Basophils Absolute Auto 0.1 X10*3/uL (0.0-0.2); Eosinophils Absolute Auto 0.1 X10*3/uL (0.0-0.4); Eosinophils Percent Auto 2.6 % (0-4); Hematocrit 43.7 % (42.0-52.0); Hemoglobin 14.1 g/dl (14.0-18.0); Imm Gran Abs Auto 0.06 X10*3/uL (0.00-0.03); Imm Gran Pct Auto 1.2 % (0.0-0.4); Lymphocytes Percent Auto 19.6 % (20-40); Mean Corpuscular HGB Conc 32.3 g/dl (31.0-36.0); Mean Corpuscular Hemoglobin 29.6 pg (27.0-33.0); Mean Corpuscular Volume 91.6 fL (80.0-98.0); Mean Platelet Volume 10.8 fL (9.4-12.4); Monocytes Absolute Auto 0.6 X10*3/uL (0.1-1.2); Monocytes Percent Auto 11.9 % (2-11); Neutrophils Absolute Auto 3.2 x10*3/uL (2.0-8.3); Neutrophils Percent Auto 63.7 % (45-73); Platelet Count 209 X10*3/uL (160-400); Red Blood Count 4.77 X10*6/uL (4.60-5.80); Red Cell Distribution Width 13.9 % (11.0-16.0)
[2023-05-11 10:03] LABS: Alanine Aminotransferase 26 U/L (0-40); Albumin Level 3.9 g/dL (3.5-5.0); Alkaline Phosphatase 92 U/L (39-117); Anion Gap 11 (12-20); Aspartate Amino Transferase 20 U/L (5-37); Bilirubin Total 0.3 mg/dL (0.0-1.0); Blood Urea Nitrogen 26 mg/dL (9-16); Calcium 8.9 mg/dL (8.4-10.2); Carbon Dioxide 25 mmol/L (22-29); Chloride 107 mmol/L (96-108); Creatinine Clr Calc Pharmacy 82.6; Estimated Glomerular Filt Rate > 60; Glucose Random 108 mg/dL (60-115); Magnesium 2.4 mg/dL (1.6-2.6); Potassium 4.5 mmol/L (3.3-5.1); Sodium 138 mmol/L (135-145); Total Protein 6.6 g/dL (6.5-8.0)
[2023-05-11 10:12] LABS: Troponin-I High Sensitivity < 2.7 ng/L (<3.5-35.0)
[2023-05-11 10:33] LABS: Influenza A PCR NEGATIVE (Negative); Influenza B PCR NEGATIVE (Negative); Resp Syncy Virus RNA Qual PCR NEGATIVE (Negative); SARS COV2 PCR INHOUSE NEGATIVE (Negative)
[2023-05-11 10:53] LABS: B Type Natriuretic Peptide 25 pg/mL (<100)
[2023-05-11 11:35] VITALS: BP 127/69; PULSE 80; RESP 18; TEMP 36.5
--- NOTE | 2023-05-11 11:56 | PC.NURSE ---
patient continues to rest quietly in room, no complaints. denies any chest pain. pending dispo at this time - remains in aflutter asymptomatic
[2023-05-11 11:58] LABS: TSH reflex Free T4 0.75 uIU/mL (0.32-4.0)
[2023-05-11 12:45] VITALS: BP 127/69; PULSE 80; RESP 18; TEMP 36.5; O2SAT 97
== END 2023-05-11 12:47 | disposition home or self-care (01) ==
PROVIDERS: Physician Assistant Medical; Emergency Provider Emergency Medicine; PCP Internal Medicine
DX: I49.9 Cardiac arrhythmia, unspecified (principal); I48.91 Unspecified atrial fibrillation; I48.92 Unspecified atrial flutter; R00.2 Palpitations; R06.02 Shortness of breath; Z11.52 Encounter for screening for COVID-19; Z20.822 Contact with and (suspected) exposure to COVID-19; Z79.899 Other long term (current) drug therapy
CPT/HCPCS: 0241U; 36415; 71046; 80053; 83735; 83880; 84443; 84484; 85025; 93005; 99283; 99285

== ENCOUNTER 2023-05-23 08:45 | Outpatient (AMB) | payer OTHER, SELFPAY ==
[2023-05-23 08:46] VITALS: BP 132/70; PULSE 81; O2SAT 98; BMI 34.3
--- NOTE | 2023-05-23 08:46 | A.OFFPC_ITS ---
Vital Signs 05/23/23 08:46 Height 6 ft Weight 253 lb BMI 34.3 BP 132/70 Blood Pressure Location Lt brachial Position Sitting Pulse 81 Pulse Source Pulse Oximeter Pulse Oximetry (%) 98 Oxygen Delivery Method Room Air Intake Visit Reasons: 6 month f/u Allergies No Known Allergies Allergy (Verified 05/23/23 08:47) Medication List - Last Reconciled 05/23/23 by Jess Turner MD acetaminophen 500 mg PO Q6H PRN apixaban (Eliquis) 5 mg PO BID cholecalciferol (vitamin D3) 50 mcg PO DAILY famotidine 20 mg PO BEDTIME levothyroxine 137 mcg PO QAM lovastatin 20 mg PO DAILY metoprolol succinate ER 25 mg PO DAILY Tobacco use date assessed: 05/23/23 Dental Screening Dental Screen Date: 05/23/23 Did you have a dental visit in the last 12 months?: Yes Did you have a dental problem in the last 6 months where you did not have access to dental care?: No Was dental information given to patient?: Patient has dentist HPI 6 month f/u HPI0 Details 62-year-old obese male with hypercholest erolemia hypothyroidism peripheral vascular disease GERD coming in for follow-up. Last seen in November 2022 for physical exam. Patient is up-to-date with colonoscopy February 2024 years. Review of the notes in May 2023 ER visit for arrhythmia EKG requested occasional short of breath results of the EKG shows atrial flutter right bundle branch block possible inferior infarct. 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 but does get tired easily, PFSH Medical History Tubular adenoma of colon Depression Hypercholesterolemia Obesity (BMI 30-39.9) Foot deformity Hypothyroid Surgical History Hx of tonsillectomy H/O foot surgery Peripheral vascular disease Family History Mother Breast cancer in situ Son Thyroid cancer Social History Housing: House Alcohol intake: current Alcohol intake frequency: a few times a month Patient Tobacco Use Status: Never used Tobacco e-Cigarette/Vaping Use: Never Used Second Hand Smoke Exposure: No service: No Current occupational status: employed Cognitive needs: No Hearing needs: No Vision needs: No Questionnaire PHQ-9 Over the last 2 weeks, how often have you been bothered by any of the following problems? 1. Little interest or pleasure in doing things: not at all 2. Feeling down, depressed, or hopeless: not at all 3. Trouble falling or staying asleep, or sleeping too much: not at all 4. Feeling tired or having little energy: not at all 5. Poor appetite or overeating: not at all 6. Feeling bad about yourself - or that you are a failure or have let yourself or your family down: not at all 7. Trouble concentrating on things, such as reading the newspaper or watching television: not at all 8. Moving or speaking so slowly that other people could have noticed. Or the opposite - being so fidgety or restless that you have been moving around a lot more than usual: not at all 9. Thoughts that you would be better off or of hurting yourself in some way: not at all Total score: 0 Depression Screening Interpretation: Negative Depression Screening Done: Yes Source: Developed by Drs. Pan Stone, Desire Ann, Jonathan Gutierrez and colleagues, with an educational tal from [employer] Thrive Questionnaire Date Thrive assessed: 05/23/23 I am a: Patient What is your living situation today?: I have a steady place to live Within the past 12 months, did the food you bought not last and you didn't have the money to get more?: Never true Within the past 12 months, did you worry whether your food would run out before you got money to buy more?: Never true Do you have trouble paying for medicines?: No Do you have trouble getting transportation to medical appointments?: No Do you have trouble paying your heating and electricity bill?: No Do you have trouble taking care of your child, family member or friend?: No Do you have trouble with day-to-day activities such as bathing, preparing meals, shopping, managing finances, etc.?: No Are you currently unemployed and looking for a job?: No Are you interested in more education?: No Currently or been in a relationship where the following occur: no concerns reported THRIVE Score: 0 AUDIT C Alcohol Use Questionnaire (AUDIT-C) 1. How often do you have a drink containing alcohol?: 2-4 times a month 2. How many drinks containing alcohol do you have on a typical day when you are drinking?: 1 or 2 3. How often do you have six or more drinks on one occasion?: Never Total Score: 2 MAGDA-7 AMB Questionnaire MAGDA-7 Date MAGDA - 7 assessed: 05/23/23 Feeling nervous, anxious, or on edge: 0 = Not at all Not being able to stop or control worryin = Not at all Worrying too much about different things: 0 = Not at all Trouble relaxin = Not at all Being so restless that it is hard to sit still: 0 = Not at all Becoming easily annoyed or irritable: 0 = Not at all Feeling afraid as if something awful might happen: 0 = Not at all Total MAGDA-7 score (0-4 normal; 5-9 mild; 10-14 moderate; 15-21 severe): 0 Source: Developed by Drs. Pan Stone, Desire Ann, Jonathan Gutierrez and colleagues, with an educational tal from [employer] Physical exam (Primary Care) Vital Signs: Last Vital Signs Pulse 81 05/23/23 08:46 BP 132/70 05/23/23 08:46 Pulse Ox 98 05/23/23 08:46 Oxygen Delivery Method Room Air 05/23/23 08:46 BMI result Body Mass Index 34.3 Tobacco/Smoking Status: Tobacco use Status Tobacco use date assessed 05/23/23 05/23/23 08:52 Patient Tobacco Use Status Never used Tobacco 05/23/23 08:52 e-Cigarette/Vaping Use Never Used 05/23/23 08:52 PHQ-9: PHQ-9 Score PHQ-9: Total score 0 05/23/23 08:58 Depression Screening Interpretation: Negative Thrive Assessment: Date of Thrive Assessment Date Thrive assessed 05/23/23 05/23/23 08:52 Currently or been in a relationship where the following occur: no concerns reported Const General: alert; No acute distress Eyes Conjunctivae: conjunctivae normal Resp Auscultation: clear to auscultation bilaterally Cardio Rate: regular rate Rhythm: regular rhythm GI Inspection: Yes normal to inspection Extrem General: Yes normal to inspection and No edema Assessment and Plan Assessment & Plan (1) Atrial fibrillation: Comment: May 2023 Code(s): I48.91 - Unspecified atrial fibrillation Plan: Chads Vasc score 1, no need for anticoagulation right now but will work the hard up. (2) Obesity (BMI 30-39.9): Code(s): E66.9 - Obesity, unspecified Plan: Diet and exercise (3) Hypercholesterolemia: Code(s): E78.00 - Pure hypercholesterolemia, unspecified Plan: Avoid fried foods, chicken skin, eggs, butter margarine, pastries and meat. Be it pork or beef they have a lot of cholesterol LDL goal of less than 130 and triglyceride of less than 150. (4) GERD (gastroesophageal reflux disease): Code(s): K21.9 - Gastro-esophageal reflux disease without esophagitis Plan: Avoid the foods that causes that usually spicy foods, tomato products, juices, coffee, soda and foods that your sensitive to. After eating do not lie down, allow 3-4 hours before in lie down. And keep the head of bed above 30 degrees to avoid the acid from going up. (5) Peripheral vascular disease: Comment: Dr. RUTHERFORD leg procedure laser EV LT Phlebectomy October 2017 Code(s): I73.9 - Peripheral vascular disease, unspecified Plan: When sitting down elevate the legs, exercise, and support stockings (6) Hypothyroid: Code(s): E03.9 - Hypothyroidism, unspecified Qualifiers: Hypothyroidism type: acquired Qualified Code(s): E03.9 - Hypothyroidism, unspecified Plan: Continue with thyroid medication. Orders: Orders RT home sleep study Today I48.91 - Unspecified atrial fibrillation CA echo transthoracic complete Today I48.91 - Unspecified atrial fibrillation Referrals Cardiology Referral I48.91 - Unspecified atrial fibrillation Coding Level of Care Code Est Pt Level 4 (28696) Diagnoses Atrial fibrillation I48.91 Obesity (BMI 30-39.9) E66.9 Hypercholesterolemia E78.00 GERD (gastroesophageal reflux disease) K21.9 Peripheral vascular disease I73.9 Acquired hypothyroidism E03.9 Hypothyroidism type: acquired
== END 2023-05-23 09:17 | disposition home or self-care (01) ==
PROVIDERS: PCP Internal Medicine; Visit Provider Internal Medicine
DX: I48.91 Unspecified atrial fibrillation (principal); E78.00 Pure hypercholesterolemia, unspecified; K21.9 Gastro-esophageal reflux disease without esophagitis; I73.9 Peripheral vascular disease, unspecified; E03.9 Hypothyroidism, unspecified
CPT/HCPCS: 99214

== ENCOUNTER 2023-06-16 08:25 | Outpatient (AMB) | payer OTHER, SELFPAY ==
--- NOTE | 2023-06-16 08:26 | A.OFFVIS_ITS ---
Vital Signs 06/16/23 08:27 Height 6 ft Weight 252 lb 3.341 oz BMI 34.2 BP 132/80 Blood Pressure Location Rt brachial Position Sitting Pulse 83 Pulse Source Monitor Intake Visit Reasons: [facility] ER / EKG Print Line Inspector Required: No Allergies No Known Allergies Allergy (Verified 06/16/23 08:29) Medication List - Last Reconciled 06/16/23 by EMBER Gray acetaminophen 500 mg PO Q6H PRN apixaban (Eliquis) 5 mg PO BID cholecalciferol (vitamin D3) 50 mcg PO DAILY famotidine 20 mg PO BEDTIME levothyroxine 137 mcg PO QAM lovastatin 20 mg PO DAILY metoprolol succinate ER 25 mg PO DAILY HPI HPI [facility] ER / EKG: Details: Doug is a 62-year-old male past medical history of obesity, hyperlipidemia, hypothyroidism, peripheral vascular disease who had irregular heartbeat noted at PCP office an EKG confirmed atrial flutter. Was sent for ER evaluation on that day, 05/11/2023. He was started on metoprolol for heart rate control and Eliquis for anticoagulation. He was referred to Cardiology in follow-up. Today presents for cardiology consultation. Tells me he has been feeling good with no concerning symptoms. Has some mild shortness of breath with stair climbing but states that this is not new for him. Does not notice any heart palpitations. He has no chest discomfort at rest or with activity. No li ghtheadedness, presyncope, syncope, falls. 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 He ran out of [employer] 2 days ago. He has not had any neurological changes. He has no cardiac history prior to this. He reports no family history of heart disease or known atrial fibrillation. He uses alcohol only occasionally. He is a nonsmoker. He has no known history of sleep apnea. [facility] Medical History Tubular adenoma of colon Depression Hypercholesterolemia Obesity (BMI 30-39.9) Foot deformity Hypothyroid Surgical History Hx of tonsillectomy H/O foot surgery Peripheral vascular disease Family History Mother Breast cancer in situ Son Thyroid cancer Social History Housing: House Alcohol intake: current Alcohol intake frequency: a few times a month Patient Tobacco Use Status: Never used Tobacco e-Cigarette/Vaping Use: Never Used Second Hand Smoke Exposure: No service: No Current occupational status: employed Cognitive needs: No Hearing needs: No Vision needs: No Review of Systems Const All systems reviewed & are unremarkable except as noted in HPI and below ENT Denies dizziness Card Denies chest pain, Denies chest pain at rest, Denies chest pain with activity, Denies rapid heart rate, Denies pedal edema, Denies edema, Denies leg edema, Denies lightheadedness, Denies palpitations, Denies dyspnea, Reports dyspnea on exertion and Denies orthopnea Resp Denies cough, Denies dyspnea and Reports dyspnea on exertion GI Denies hematochezia and Denies change in stool character Musc Denies abnormal gait, Denies limited range of motion, Denies muscle cramps, Denies muscle weakness, Denies numbness, Denies radiating pain into limb, Denies stiffness and Denies tingling Neuro Denies abnormal gait, Denies dizziness, Denies numbness and Denies tingling Endo Denies palpitations Physical Exam Vital Signs: Last Vital Signs Pulse 83 06/16/23 08:27 BP 132/80 06/16/23 08:27 BMI result Body Mass Index 34.2 Const General: cooperative, healthy appearing, comfortable and no acute distress Orientation/consciousness: patient oriented x3 Neck Neck: Yes normal visual inspection and Yes no JVD Resp Effort & Inspection: normal respiratory effort Auscultation: clear to auscultation bilaterally, no crackles, no rales, no rhonchi and no wheezes Cardio Jugular venous distension: no JVD Rate: regular rate Rhythm: regular rhythm Heart sounds: S1 normal heart sound present, S2 normal heart sound present, no murmurs and no rubs Neuro General: patient oriented x3 Extrem General: Yes normal to inspection and No no pedal edema Psych Appearance: grossly normal Mental Status: mental status grossly normal Speech and movement: Normal speech and movement present Office Procedures EKG Details: Today, read by me, atrial flutter, right bundle branch block, inferior Q-wave, rate 83, QTC 481 milliseconds [id number], Complete Assessment & Plan Assessment & Plan (1) Atrial flutter: Code(s): I48.92 - Unspecified atrial flutter Category: Medical Plan: Newer finding of atrial flutter on EKG 05/11/2023. He was 1st noticed to have irr egular pulse in his PCP office and sent for EKG. He did have ER evaluation with labs showing TSH 0.75, troponin normal, creatinine 1.22. Chest x-ray no active disease. He was put on metoprolol for heart rate control. He was put on Eliquis for anticoagulation. Today he reports he has been feeling well with only mild shortness of breath with stair climbing which is not new. He does not have any heart palpitations. He ran out of Eliquis 2 days ago. EKG done today confirming atrial fibrillation/flutter, rate 83. He has sleep study and echocardiogram already ordered by PCP. Will order a pharmacological nuclear stress test to evaluate for any ischemia. Planning for cardioversion in 4 weeks' time. Diagnosis of atrial fibrillation/flutter reviewed with patient including stroke risk, med management, cardioversion procedure and needed testing. States understanding and is agreeable to proceed. Instructed on restarting Eliquis and not to miss any doses going forward. Continue metopr olol. Cardiology office visit in 6 weeks, sooner if needed. (2) Obesity (BMI 30-39.9): Code(s): E66.9 - Obesity, unspecified Category: Medical Plan: BMI 34.2. Will be evaluating him for sleep apnea which can contribute to atrial fibrillation (3) Peripheral vascular disease: Comment: Dr. RUTHERFORD leg procedure laser EV LT Phlebectomy October 2017 Code(s): I73.9 - Peripheral vascular disease, unspecified Category: Surgical Plan: History of peripheral vascular disease in his lower extremities. He reports having vein ablations in the past. He follows with Dr. Rutherford for vascular Plan Time spent on chart review, documentation, interview and assessment Orders: Orders CA lexiscan stress w julianne Today I48.92 - Unspecified atrial flutter NM cardiolite stress test Today I48.92 - Unspecified atrial flutter CA echo transthoracic complete 05/23/23 I48.91 - Unspecified atrial fibrillation Cardioversion 1 Month I48.91 - Unspecified atrial fibrillation, I48.92 - Unspecified atrial flutter Medications: Refilled apixaban (Eliquis) 5 mg PO BID 60 tabs 5RF metoprolol succinate ER 25 mg PO DAILY 30 tabs 5RF Coding Level of Care Code New Pt Level 4 (58351) Diagnoses Atrial flutter I48.92 Obesity (BMI 30-39.9) E66.9 Peripheral vascular disease I73.9 CPT Codes EKG - CPT: [id number], Complete ([id number]) Time Spent (min) 30
[2023-06-16 08:27] VITALS: BP 132/80; PULSE 83; BMI 34.2
== END 2023-06-16 09:04 | disposition home or self-care (01) ==
PROVIDERS: PCP Internal Medicine; Visit Provider Nurse Practitioner Family
DX: I48.92 Unspecified atrial flutter (principal); E66.9 Obesity, unspecified; I73.9 Peripheral vascular disease, unspecified
CPT/HCPCS: 93010; 99204

== ENCOUNTER → 2023-06-16 08:25 | Outpatient (BNVA) | payer OTHER, SELFPAY | PROVIDERS: PCP Internal Medicine; Visit Provider Nurse Practitioner Family | DX: I48.92 Unspecified atrial flutter (principal); E66.9 Obesity, unspecified; I73.9 Peripheral vascular disease, unspecified; Z79.01 Long term (current) use of anticoagulants; Z79.899 Other long term (current) drug therapy | CPT/HCPCS: 93005 ==

== ENCOUNTER → 2023-06-20 09:13 | Outpatient (REF) | payer OTHER, SELFPAY ==
--- NOTE | ~2023-06-20 | NM_ITS ---
Lexiscan Myocardial perfusion study Indication: Shortness of breath, atrial flutter Technique: The patient was brought in for a Lexiscan perfusion study on 06/20/2023 and was injected 0.4 mg of Lexiscan intravenously. Within a minute of this injection 40 mCi of sestamibi was given intravenously. Images were obtained using the SPECT gamma camera interlaced with the gating device. Images were obtained in supine position. Resting perfusion study was performed on 06/21/2023. Patient was administered 40 mCi of sestamibi intravenously at rest. Images were then obtained in supine position. Images were processed with the software and compared side to side in short axis, horizontal long axis and vertical long axis views. Total DLP 125mGy-cm. Findings: Raw acquisition reviewed. The stress perfusion study showed no significant perfusion abnormality. Both uncorrected as well as CT attenuation corrected images were reviewed. The gated study shows normal LV systolic function with calculated LVEF of 68%. LV cavity is normal in size. The gated study shows normal wall thickening and contraction of segments. Resting study shows no significant perfusion abnormality. Gating at rest reveals normal wall motion with ejection fraction at 62%. The findings are consistent with no clear reversible or fixed perfusion abnormality. NM/NM cardiolite stress test Impression: 1. Myocardial perfusion imaging study shows normal myocardial perfusion 2. Gated LVEF is 68% during stress and 62% during rest. 3. Transient ischemic dilatation not present. EKG component of the test reported separately.
--- NOTE | 2023-06-20 09:16 | CA_ITS ---
Acquisition Time: 2023-06-20 09:38:24 Total Exercise Time: 00:02:00 Test Indications: SOB, AFLUTTER Medications: SEE H Protocol: LEXISCAN Max HR: 120 BPM 75% of Pred: 159 BPM Max BP: 140/092 mmHG Max Work Load: 1.0 METS Pharmacological stress test with Lexiscan injection while sitting , without anginal symptoms, with isolated PVCs, with normotensive response to injection, with nondiagnoisiitc EKGs. Aminophylline 75mg IVP given to reverse Lexiscan. Nuclear images pending. Test reviewed with Dr. Darling Referred By: Erma Latham Overread By: Monika Rivera
== END ==
LOC: HO.CARD 09:13
PROVIDERS: PCP Internal Medicine; Visit Provider Nurse Practitioner Family
DX: I48.92 Unspecified atrial flutter (principal)
CPT/HCPCS: 78452; 93017; A9500; J0280; J2785

== ENCOUNTER → 2023-06-20 09:16 | Outpatient (BNV) | payer OTHER, SELFPAY | PROVIDERS: PCP Internal Medicine; Visit Provider Nurse Practitioner | DX: I49.3 Ventricular premature depolarization (principal); R06.02 Shortness of breath | CPT/HCPCS: 78452; 93016; 93018 ==

== ENCOUNTER → 2023-06-29 08:06 | Outpatient (REF) | payer OTHER, SELFPAY ==
--- NOTE | 2023-06-29 08:12 | CA_ITS ---
Transthoracic Echocardiogram Patient (Last, First, Middle): Doug Palma J Gender: Male Date of : 1960 Age: 62 Procedure Date: 06/29/2023 Procedure Type: Transthoracic Echocardiogram Location: OP Height: 182.88 cm Weight: 113.4 kg BSA: 2.34 m2 Heart Rate: 71 bpm BP: 125 / 80 mmHg Acoustical Logging Engineer: LIDIA Referring MD: Erma Latham HEAD OPERATOR SULFIDEShama Symptoms: I48.91 - Unspecified atrial fibrillation Study Quality: Adequate Conclusions: - Normal left ventricular size and systolic function. There is mildly increased left ventricular wall thickness. The visually estimated ejection fraction is between 55-60%. - Normal right ventricular cavity size and systolic function. - There is mild dilatation of the sinuses of Valsalva measuring 4.00 cm and mild dilatation of the ascending aorta measuring 3.50 cm. Findings Left Ventricle Normal left ventricular size and systolic function. There is mildly increased left ventricular wall thickness. The visually estimated ejection fraction is between 55-60%. There is no evidence of regional wall motion abnormalities. Diastolic function is normal for age. Right Ventricle Normal right ventricular cavity size and systolic function. Atria The left atrium is normal in size. The right atrium is normal in size. Aortic Valve There is a normal trileaflet aortic valve. There is mild calcification of the aortic valve. There is no aortic valve stenosis. There is no aortic valve regurgitation. Mitral Valve Normal mitral valve structure and function. There is trace mitral valve regurgitation. There is no mitral valve stenosis. Pulmonic Valve The pulmonic valve is likely normal. Tricuspid Valve Normal tricuspid valve structure. There is no tricuspid valve regurgitation. Normal right atrial pressure. There is no evidence of pulmonary hypertension. Great Vessels There is mild dilatation of the sinuses of Valsalva measuring 4.00 cm and mild dilatation of the ascending aorta measuring 3.50 cm. The visualized portions of the pulmonary artery and branches are normal. Venous The inferior vena cava is normal in size and collapses greater than 50% with inspiration. Pericardium/Pleural There is no evidence of pericardial effusion. Prior Study Comparison No prior study available for comparison. Measurements 2D Linear Measurements IVSd: 1.34 0.6-0.9/0.6-1.0 cm LVIDd: 4.65 3.9-5.3/4.2-5.9 cm LVIDd Index: 1.99 2.4-3.2/2.2-3.1 cm/m2 LVIDs: 2.51 2.0-3.6 cm LVPWd: 1.27 0.7-1.1 cm LA Diam: 4.20 2.7-3.8/3.0-4.0 cm LAIDs Index: 1.79 1.5-2.3 cm/m2 LV Mass: 293.40 67-162/88-224 g LV Mass Index: 125.38 43-95/49-115 g/m2 LVOT Diam: 2.50 3.0+(-)1.3 cm 2D Systolic Function EF 4C: 65.60 >55% EF 2C: 57.40 >55% EF BiP: 61.80 >55% Mitral Valve MV Pk E: 0.76 MV PK A: 0.60 MV Decel Time: 195.00 E/A: 1.30 E'Lateral: 9.14 E'Medial: 8.27 E/E' Med: 9.20 E/E' Lat: 8.30 PHT: 57.00 MVA PHT: 3.86 Decel Warren: 3.89 Aortic Valve AoV Pk Manoj: 1.04 AoV Mn Manoj: 0.73 AoV VTI: 0.26 AoV Pk Grad: 4.00 Aov Mn Grad: 2.00 GERSON Cont.VTI: 3.39 LVOT LVOT Pk Manoj: 0.75 LVOT Mn Manoj: 0.52 LVOT VTI: 0.18 LVOT Pk Grad: 2.00 LVOT Mn Grad: 1.00 LVOT Diam: 2.50 LVOT Area: 4.91 Diastolic Function MV Pk E: 0.76 MV Pk A: 0.60 E/A: 1.30 E'Medial: 8.27 E/E' Med: 9.20 E' Laterial: 9.14 E/E' Lat: 8.30 Right Ventricle TAPSE (mm): 16.30 TVS' Manoj: 11.00 Tricuspid Valve TR Pk Manoj: 2.23 TR Pk Grad: 20.00 RA Press: 3.00 RVSP: 23.00 Great Vessels Aorta Sinus of Valsalva: 4.00 2.0-3.5 cm Ao Asc: 3.50 2.1-3.4 cm Pulmonary Valve PV Pk Manoj: 0.95 Peak PV Grad: 4.00 Updated in Other Vendor System with Status of Final Sandeep Newberry MD electronically signed on 07/01/2023 9:45:58 PM with status of Final
== END ==
LOC: HO.SL 08:06
PROVIDERS: PCP Internal Medicine; Visit Provider Internal Medicine
DX: G47.33 Obstructive sleep apnea (adult) (pediatric) (principal); I48.91 Unspecified atrial fibrillation; R06.02 Shortness of breath
CPT/HCPCS: 93306; 95806

== ENCOUNTER → 2023-06-29 08:12 | Outpatient (BNV) | payer OTHER, SELFPAY | PROVIDERS: PCP Internal Medicine; Visit Provider Internal Medicine Cardiovascular Disease | DX: I48.91 Unspecified atrial fibrillation (principal) | CPT/HCPCS: 93306 ==

== ENCOUNTER → 2023-06-29 11:26 | Outpatient (BNV) | payer OTHER, SELFPAY | PROVIDERS: PCP Internal Medicine; Visit Provider Internal Medicine | DX: G47.33 Obstructive sleep apnea (adult) (pediatric) (principal) | CPT/HCPCS: 95806 ==

== ENCOUNTER → 2023-07-12 11:20 | Day surgery (SDC) | payer OTHER, SELFPAY ==
--- NOTE | 2023-07-10 11:49 | HO.ANESPROP2 ---
HPI - Anesthesia Eval Consult details Narrative: 62yo M for Cardioversion Gissel JOSEPH Active Problems Active Problems: All Active Problems Obstructive sleep apnea (Acute) Atrial flutter (Acute) Atrial fibrillation (Acute) Ankle ulcer (Acute) Tinea pedis of both feet (Acute) Knee pain, left (Acute) GERD (gastroesophageal reflux disease) (Acute) Annual physical exam (Acute) Hypercholesterolemia (Acute) Obesity (BMI 30-39.9) (Acute) Peripheral vascular disease (Acute) Hypothyroid (Acute) Past Medical History Medical History (Updated 07/06/23 @ 19:04 by Jess Turner MD) Hypersomnia Tubular adenoma of colon Depression Hypercholesterolemia Obesity (BMI 30-39.9) Foot deformity Hypothyroid Family History Family History Mother Breast cancer in situ Son Thyroid cancer Surgical History Surgical History Hx of tonsillectomy H/O foot surgery Peripheral vascular disease Social History Social History Housing: House Alcohol intake: current Alcohol intake frequency: a few times a month Patient Tobacco Use Status: Never used Tobacco e-Cigarette/Vaping Use: Never Used Second Hand Smoke Exposure: No service: No Current occupational status: employed Cognitive needs: No Hearing needs: No Vision needs: No Meds Allergies Allergy/AdvReac Type Severity Reaction Status Date / Time No Known Allergies Allergy Verified 06/16/23 08:29 Home Medications ?Medication ?Instructions ?Recorded ?Confirmed ?Last Taken ?Type acetaminophen 500 mg tablet 500 mg PO Q6H PRN 04/28/20 06/16/23 Unknown History cholecalciferol (vitamin D3) 50 50 mcg PO DAILY 04/28/20 06/16/23 Unknown History mcg (2,000 unit) capsule Exam Narrative Narrative: ECHO 2023 Conclusions: - Normal left ventricular size and systolic function. There is mildly increased left ventricular wall thickness. The visually estimated ejection fraction is between 55-60%. - Normal right ventricular cavity size and systolic function. - There is mild dilatation of the sinuses of Valsalva measuring 4.00 cm and mild dilatation of the ascending aorta measuring 3.50 cm. NM cardiolite stress test 06/2023 Impression: 1. Myocardial perfusion imaging study shows normal myocardial perfusion 2. Gated LVEF is 68% during stress and 62% during rest. 3. Transient ischemic dilatation not present. Assessment and Plan Assessment Anesthesia Assessment: Chart Reviewed
--- NOTE | 2023-07-12 12:15 | ECG_ITS ---
Test Reason : postop Blood Pressure : / mmHG Vent. Rate : 074 BPM Atrial Rate : 074 BPM P-R Int : 202 ms QRS Dur : 140 ms QT Int : 416 ms P-R-T Axes : 022 033 014 degrees QTc Int : 461 ms Normal sinus rhythm Right bundle branch block Abnormal ECG When compared with ECG of 11-MAY-2023 08:32, Sinus rhythm has replaced Atrial flutter Criteria for Inferior infarct are no longer Present Referred By: Jorge Darling Electronically Signed By:JORGE DARLING MD
--- NOTE | 2023-07-12 12:29 | PC.NURSE ---
pt found to be in NSR. EKG done and confirmed NSR with rt BBB. Awaiting md.
--- NOTE | 2023-07-12 13:23 | PC.NURSE ---
md in to see pt and discharged home afterwards. to follow up with md in the office.
== END ==
LOC: HO.SSS 11:21
PROVIDERS: PCP Internal Medicine; Visit Provider Internal Medicine Cardiovascular Disease
DX: I48.92 Unspecified atrial flutter (principal); Z53.8 Procedure and treatment not carried out for other reasons
CPT/HCPCS: 93005

== ENCOUNTER → 2023-07-12 12:15 | Outpatient (BNV) | payer OTHER, SELFPAY | PROVIDERS: PCP Internal Medicine; Visit Provider Internal Medicine Cardiovascular Disease | DX: I45.10 Unspecified right bundle-branch block (principal); R94.31 Abnormal electrocardiogram [ECG] [EKG] | CPT/HCPCS: 93010 ==

== ENCOUNTER → 2023-07-19 07:20 | Outpatient (REF) | payer OTHER, SELFPAY ==
--- NOTE | 2023-07-19 | HM_ITS ---
* Total monitoring time 2 days. * Underlying rhythm is sinus. Average ventricular rate 73/Min. * Atrial fibrillation noted. Overall burden 8.8%. Longest episode 4 hours and 19 minutes. Maximum rate 106/Min. * Rare ventricular ectopy. * Rare supraventricular ectopy. * No significant pauses or high-grade AV blocks. * No patient markers or diary events. MTDD
== END ==
LOC: HO.CARD 07:20
PROVIDERS: PCP Internal Medicine; Visit Provider Internal Medicine Cardiovascular Disease
DX: I48.91 Unspecified atrial fibrillation (principal)
CPT/HCPCS: 93225

== ENCOUNTER → 2023-07-19 08:00 | Outpatient (BNV) | payer OTHER, SELFPAY | PROVIDERS: PCP Internal Medicine; Visit Provider Internal Medicine | DX: I48.91 Unspecified atrial fibrillation (principal) | CPT/HCPCS: 93227 ==

== ENCOUNTER 2023-07-31 08:24 | Outpatient (AMB) | payer OTHER, SELFPAY ==
[2023-07-31 08:26] VITALS: BP 130/60; PULSE 81; BMI 32.4
--- NOTE | 2023-07-31 08:26 | A.OFFVIS_ITS ---
Vital Signs 07/31/23 08:26 Height 6 ft Weight 238 lb 15.697 oz BMI 32.4 BP 130/60 Blood Pressure Location Rt brachial Position Sitting Pulse 81 Pulse Source Pulse Oximeter Intake Visit Reasons: 6wk follow up Client Service Associate Required: No Allergies No Known Allergies Allergy (Verified 07/31/23 08:28) Medication List - Last Reconciled 07/31/23 by Erma Latham, QUINCY-C acetaminophen 500 mg PO Q6H PRN apixaban (Eliquis) 5 mg PO BID [AUTO PAP 6-20 CM H2O humidified AIR As directed] cholecalciferol (vitamin D3) 50 mcg PO DAILY famotidine 20 mg PO BEDTIME levothyroxine 137 mcg PO QAM lovastatin 20 mg PO DAILY metoprolol succinate ER 25 mg PO DAILY HPI HPI 6wk follow up: Details: Doug is a 62-year-old male past medical history of obesity, hyperlipidemia, hypothyroidism, peripheral vascular disease who had irregular heartbeat noted at PCP office an EKG confirmed atrial flutter. Was sent for ER evaluation on that day, 05/11/2023. He was started on metoprolol for heart rate control and Eliquis for anticoagulation. He was referred to Cardiology and on last visit a Holter monitor, echocardiogram, nuclear stress test and sleep study were ordered. He now presents for follow-up. Today he reports he has been feeling well with no concerning symptoms. Has some mild shortness of breath with stair climbing but states that this is not new for him. Does not notice any heart palpitations. He has no chest discomfort at rest or with activity. No lightheadedness, presyncope, syncope, falls. 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 He has not had any neurological changes. He has no cardiac history prior to this. He reports no family history of heart disease or known atrial fibrillation. He uses alcohol only occasionally. He is a nonsmoker. He has no known history of sleep apnea. [facility] Medical History Hypersomnia Tubular adenoma of colon Depression Hypercholesterolemia Obesity (BMI 30-39.9) Foot deformity Hypothyroid Surgical History Hx of tonsillectomy H/O foot surgery Peripheral vascular disease Family History Mother Breast cancer in situ Son Thyroid cancer Social History Housing: House Alcohol intake: current Alcohol intake frequency: a few times a month Patient Tobacco Use Status: Never used Tobacco e-Cigarette/Vaping Use: Never Used Second Hand Smoke Exposure: No service: No Current occupational status: employed Cognitive needs: No Hearing needs: No Vision needs: No Review of Systems Const All systems reviewed & are unremarkable except as noted in HPI and below ENT Denies dizziness Card Denies chest pain, Denies chest pain at rest, Denies chest pain with activity, Denies rapid heart rate, Denies pedal edema, Denies edema, Denies leg edema, Denies lightheadedness, Denies palpitations, Denies dyspnea, Denies dyspnea on exertion and Denies orthopnea Resp Denies cough, Denies dyspnea and Denies dyspnea on exertion GI Denies hematochezia and Denies change in stool character Musc Denies abnormal gait, Denies limited range of motion, Denies muscle cramps, Denies muscle weakness, Denies numbness, Denies radiating pain into limb, Denies stiffness and Denies tingling Neuro Denies abnormal gait, Denies dizziness, Denies numbness and Denies tingling Endo Denies palpitations Physical Exam Vital Signs: Last Vital Signs Pulse 81 07/31/23 08:26 BP 130/60 07/31/23 08:26 BMI result Body Mass Index 32.4 Const General: cooperative, healthy appearing, comfortable and no acute distress Orientation/consciousness: patient oriented x3 Neck Neck: Yes normal visual inspection and Yes no JVD Resp Effort & Inspection: normal respiratory effort Auscultation: clear to auscultation bilaterally, no crackles, no rales, no rhon chi and no wheezes Cardio Jugular venous distension: no JVD Rate: regular rate Rhythm: regular rhythm Heart sounds: S1 normal heart sound present, S2 normal heart sound present, no murmurs and no rubs Neuro General: patient oriented x3 Extrem General: Yes normal to inspection and No no pedal edema Psych Appearance: grossly normal Mental Status: mental status grossly normal Speech and movement: Normal speech and movement present Assessment & Plan Assessment & Plan (1) Atrial flutter: Code(s): I48.92 - Unspecified atrial flutter Category: Medical Plan: Newer finding of atrial flutter on EKG 05/11/2023. He was 1st noticed to have irregular pulse in his PCP office and sent for EKG. He did have ER evaluation with labs showing TSH 0.75, troponin normal, creatinine 1.22. Chest x-ray no active disease. He was put on metoprolol for heart rate control. He was put on Eliquis for anticoagulation. He was referred to Cardiology in consultation and test were ordered. An echocardiogram was done on 06/29/2023 showing EF, atriums normal size, mild dilation of sinus of Valsalva and ascending aorta. Nuclear stress test done on 06/21/2023 showed normal myocardial perfusion imaging. Sleep study done 07/06/2023 showing moderately severe obstructive sleep apnea. He tells me that he will be getting a CPAP mask this week. A Holter monitor was done on 07/19/2023 for 2 days showing sinus rhythm with average heart rate 73, AFib 8.8% of the time, longest episode 4 hours 19 minutes. Today he reports no concerning symptoms. He does not notice heart palpitations. Pulse is regular on examination today. Reviewed the finding of sleep apnea, need for treatment and how it affects atrial fibrillation. He states understanding. Since PAF is still occurring will increase his metoprolol XL from 25 mg daily up to 50 mg daily. No reports of bleeding. Will continue Eliquis 5 mg b.i.d. Cardiology office visit in 4 months, sooner if needed. (2) Peripheral vascular disease: Comment: Dr. RUTHERFORD leg procedure laser EV LT Phlebectomy October 2017 Code(s): I73.9 - Peripheral vascular disease, unspecified Category: Surgical Plan: History of peripheral vascular disease in his lower extremities. He reports having vein ablations in the past. He follows with Dr. Rutherford for vascular (3) Obstructive sleep apnea: Comment: Sleep study done 06/29/2023 showing moderately severe obstructive sleep apnea AHI 22 advised CPAP auto PAP mode 6-20 cm. Code(s): G47.33 - Obstructive sleep apnea (adult) (pediatric) Category: Medical Plan: New finding of obstructive sleep apnea which likely contributes to his atrial fibrillation. CPAP has been ordered already through his PCP office. He expects to get his machine this week. Plan Time spent on chart review, documentation, interview and assessment Medications: New metoprolol succinate ER 50 mg PO DAILY 90 tabs 3RF Discontinued metoprolol succinate ER Discontinued Reason: Doctor's Order 25 mg PO DAILY 30 tabs 5RF Coding Level of Care Code Est Pt Level 3 (53840) Diagnoses Atrial flutter I48.92 Peripheral vascular disease I73.9 Obstructive sleep apnea G47.33 Time Spent (min) 24
== END 2023-07-31 09:08 | disposition home or self-care (01) ==
PROVIDERS: PCP Internal Medicine; Visit Provider Nurse Practitioner Family
DX: I48.92 Unspecified atrial flutter (principal); I73.9 Peripheral vascular disease, unspecified; G47.33 Obstructive sleep apnea (adult) (pediatric)
CPT/HCPCS: 99213

== ENCOUNTER → 2023-07-31 08:24 | Outpatient (BNVA) | payer OTHER, SELFPAY | PROVIDERS: PCP Internal Medicine; Visit Provider Nurse Practitioner Family ==

== ENCOUNTER 2023-10-02 10:57 | Outpatient (AMB) | payer OTHER, SELFPAY ==
[2023-10-02 11:02] VITALS: BP 108/72; PULSE 63; O2SAT 98; BMI 32.8
--- NOTE | 2023-10-02 11:02 | A.OFFPC_ITS ---
Vital Signs 10/02/23 11:02 Height 6 ft Weight 242 lb BMI 32.8 BP 108/72 Blood Pressure Location Lt brachial Position Sitting Pulse 63 Pulse Source Pulse Oximeter Pulse Oximetry (%) 98 Oxygen Delivery Method Room Air Intake Visit Reasons: atrial fibrillation Allergies No Known Allergies Allergy (Verified 10/02/23 11:03) Medication List - Last Reconciled 10/02/23 by Jess Turner MD acetaminophen 500 mg PO Q6H PRN apixaban (Eliquis) 5 mg PO BID [AUTO PAP 6-20 CM H2O humidified AIR As directed] cholecalciferol (vitamin D3) 50 mcg PO DAILY famotidine 20 mg PO BEDTIME levothyroxine 137 mcg PO QAM lovastatin 20 mg PO DAILY metoprolol succinate ER 50 mg PO DAILY Tobacco use date assessed: 05/23/23 Dental Screening Dental Screen Date: 05/23/23 HPI atrial fibrillation HPI Details 62-year-old obese male with atrial fibri llation hypercholesterolemia GERD peripheral vascular disease and hypothyroidism last seen in 05/27/2023. Review of the notes has been following up with vascular for the venous insufficiency on the bilateral lower extremity wounds. Has the Unna boot compression to the left lower extremity in to be given compression on the right has had EVLT venous reflux study today no identifying superficial wound reflux in the left lower extremity has superficial venous reflux on the right anterior accessory vein and right small saphenous vein. Deep venous reflux bilateral femoral and popliteal veins. Treatment options advised ablation will need extrinsic compression 30-40 mm Hg. As for the atrial fibrillation new finding of atrial flutter in May for 2023 metoprolol for heart rate control Eliquis for anticoagulation echocardiogram June 2023 reveals EF of normal nuclear stress test normal myocardial perfusion sleep study showing moderately severe obstructive sleep apnea. CPAP has been ordered. Sleep study done in 06/29/2023 showing moderately severe AHI of 22 auto PAP 6-20 cm echocardiogram May Normal left ventricular size and systolic function. There is mildly increased left ventricular wall thickness. The visually estimated ejection fraction is between 55-60%. - Normal right ventricular cavity size a nd systolic function. - There is mild dilatation of the sinuse s of Valsalva measuring 4.00 cm and mild dilatation of the ascen ding aorta measuring 3.50 cm. [facility] Medical History Hypersomnia Tubular adenoma of colon Depression Hypercholesterolemia Obesity (BMI 30-39.9) Foot deformity Hypothyroid Surgical History Hx of tonsillectomy H/O foot surgery Peripheral vascular disease Family History Mother Breast cancer in situ Son Thyroid cancer Social History Housing: House Alcohol intake: current Alcohol intake frequency: a few times a month Patient Tobacco Use Status: Never used Tobacco Tobacco use type: Cigarette e-Cigarette/Vaping Use: Never Used Second Hand Smoke Exposure: No service: No Current occupational status: employed Cognitive needs: No Hearing needs: No Vision needs: No Questionnaire PHQ-9 Over the last 2 weeks, how often have you been bothered by any of the following problems? 1. Little interest or pleasure in doing things: not at all 2. Feeling down, depressed, or hopeless: not at all 3. Trouble falling or staying asleep, or sleeping too much: not at all 4. Feeling tired or having little energy: not at all 5. Poor appetite or overeating: not at all 6. Feeling bad about yourself - or that you are a failure or have let yourself or your family down: not at all 7. Trouble concentrating on things, such as reading the newspaper or watching television: not at all 8. Moving or speaking so slowly that other people could have noticed. Or the opposite - being so fidgety or restless that you have been moving around a lot more than usual: not at all 9. Thoughts that you would be better off or of hurting yourself in some way: not at all Total score: 0 Depression Screening Interpretation: Negative Depression Screening Done: Yes Source: Developed by Drs. Pan Stone, Desire Ann, Jonathan Gutierrez and colleagues, with an educational tal from [email or web address]. Thrive Questionnaire Date Thrive assessed: 05/23/23 AUDIT C Alcohol Use Questionnaire (AUDIT-C) 1. How often do you have a drink containing alcohol?: 2-4 times a month 2. How many drinks containing alcohol do you have on a typical day when you are drinking?: 1 or 2 3. How often do you have six or more drinks on one occasion?: Never Total Score: 2 MAGDA-7 AMB Questionnaire MAGDA-7 Date MAGDA - 7 assessed: 05/23/23 Source: Developed by Drs. Pan Stone, Desire Ann, Jonathan Gutierrez and colleagues, with an educational tal from [employer]. Physical exam (Primary Care) Vital Signs: Last Vital Signs Pulse 63 10/02/23 11:02 BP 108/72 10/02/23 11:02 Pulse Ox 98 10/02/23 11:02 Oxygen Delivery Method Room Air 10/02/23 11:02 BMI result Body Mass Index 32.8 Tobacco/Smoking Status: Tobacco use Status Tobacco use date assessed 05/23/23 10/02/23 11:03 Patient Tobacco Use Status Never used Tobacco 10/02/23 11:03 Tobacco use type Cigarette 10/02/23 11:03 e-Cigarette/Vaping Use Never Used 10/02/23 11:03 PHQ-9: PHQ-9 Score PHQ-9: Total score 0 10/02/23 11:38 Depression Screening Interpretation: Negative Thrive Assessment: Date of Thrive Assessment Date Thrive assessed 05/23/23 10/02/23 11:03 Const General: alert; No acute distress Eyes Conjunctivae: conjunctivae normal Resp Auscultation: clear to auscultation bilaterally Cardio Rate: regular rate Rhythm: regular rhythm GI Inspection: Yes normal to inspection Extrem General: Yes normal to inspection and No edema Assessment and Plan Assessment & Plan (1) Obstructive sleep apnea: Comment: Sleep study done 06/29/2023 showing moderately severe obstructive sleep apnea AHI 22 advised CPAP auto PAP mode 6-20 cm. Code(s): G47.33 - Obstructive sleep apnea (adult) (pediatric) Plan: Patient has been prescribed the CPAP. 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 Semiannual renal blood work. (3) GERD (gastroesophageal reflux disease): Code(s): K21.9 - Gastro-esophageal reflux disease without esophagitis Plan: Avoid the foods that causes that usually spicy foods, tomato products, juices, coffee, soda and foods that your sensitive to. After eating do not lie down, allow 3-4 hours before in lie down. And keep the head of bed above 30 degrees to avoid the acid from going up. (4) Hypercholesterolemia: Code(s): E78.00 - Pure hypercholesterolemia, unspecified Plan: Avoid fried foods, chicken skin, eggs, butter margarine, pastries and meat. Be it pork or beef they have a lot of cholesterol LDL goal of less than 70 if possible on lovastatin 20 mg once a (5) Obesity (BMI 30-39.9): Code(s): E66.9 - Obesity, unspecified Plan: Diet and exercise (6) Peripheral vascular disease: Comment: Dr. RUTHERFORD leg procedure laser EV LT Phlebectomy October 2017 Code(s): I73.9 - Peripheral vascular disease, unspecified Plan: Patient is being followed up by the vascular surgeon and advised ablation. When sitting down elevate the legs, exercise, and support stockings (7) Hypothyroid: Code(s): E03.9 - Hypothyroidism, unspecified Qualifiers: Hypothyroidism type: acquired Qualified Code(s): E03.9 - Hypothyroidism, unspecified Plan: Continue with thyroid medication Orders: Orders Comprehensive Met. Panel Today I48.91 - Unspecified atrial fibrillation Hemoglobin A1c Today I48.91 - Unspecified atrial fibrillation Lipid Panel Today E78.00 - Pure hypercholesterolemia, unspecified, I48.91 - Unspecified atrial fibrillation Complete Blood Count Auto Diff Today I48.91 - Unspecified atrial fibrillation Thyroid Stimulating Hormone Today I48.91 - Unspecified atrial fibrillation Free T4 (Free Thyroxine) Today I48.91 - Unspecified atrial fibrillation Coding Level of Care Code Est Pt Level 4 (57373) Diagnoses Obstructive sleep apnea G47.33 Atrial fibrillation I48.91 GERD (gastroesophageal reflux disease) K21.9 Hypercholesterolemia E78.00 Obesity (BMI 30-39.9) E66.9 Peripheral vascular disease I73.9 Acquired hypothyroidism E03.9 Hypothyroidism type: acquired
== END 2023-10-02 16:04 | disposition home or self-care (01) ==
PROVIDERS: PCP Internal Medicine; Visit Provider Internal Medicine
DX: G47.33 Obstructive sleep apnea (adult) (pediatric) (principal); I48.91 Unspecified atrial fibrillation; I73.9 Peripheral vascular disease, unspecified; K21.9 Gastro-esophageal reflux disease without esophagitis; E78.00 Pure hypercholesterolemia, unspecified; E66.9 Obesity, unspecified; E03.9 Hypothyroidism, unspecified
CPT/HCPCS: 99214

== ENCOUNTER 2023-11-13 16:01 | Outpatient (REF) | payer OTHER, SELFPAY ==
[2023-11-13 16:29] LABS: MANUAL DIFF FLAG NO
[2023-11-13 17:02] LABS: Basophils Absolute Auto 0.1 X10*3/uL (0.0-0.2); Basophils Percent Auto 0.9 % (0-2); Eosinophils Absolute Auto 0.1 X10*3/uL (0.0-0.4); Eosinophils Percent Auto 2.1 % (0-4); Hematocrit 49.6 % (42.0-52.0); Hemoglobin 16.1 g/dl (14.0-18.0); Imm Gran Abs Auto 0.04 X10*3/uL (0.00-0.03); Imm Gran Pct Auto 0.7 % (0.0-0.4); Lymphocytes Absolute Auto 1.1 X10*3/uL (1.2-4.9); Mean Corpuscular HGB Conc 32.5 g/dl (31.0-36.0); Mean Corpuscular Hemoglobin 30.4 pg (27.0-33.0); Mean Corpuscular Volume 93.8 fL (80.0-98.0); Mean Platelet Volume 10.6 fL (9.4-12.4); Monocytes Absolute Auto 0.7 X10*3/uL (0.1-1.2); Monocytes Percent Auto 12.2 % (2-11); Neutrophils Absolute Auto 3.8 x10*3/uL (2.0-8.3); Neutrophils Percent Auto 65.1 % (45-73); Platelet Count 224 X10*3/uL (160-400); Red Blood Count 5.29 X10*6/uL (4.60-5.80); Red Cell Distribution Width 14.1 % (11.0-16.0); White Blood Count 5.8 X10*3/uL (4.8-10.8)
[2023-11-13 17:13] LABS: Estimated Average Glucose 105 mg/dL; Hemoglobin A1C 139.0635 umol/L; Hemoglobin A1c % 5.3 % (<6.0); Total Hemoglobin (HGBA1C) 4060.7967 umol/L
[2023-11-13 17:39] LABS: Alanine Aminotransferase 20 U/L (0-40); Albumin Level 4.2 g/dL (3.5-5.0); Alkaline Phosphatase 96 U/L (39-117); Anion Gap 11 (12-20); Aspartate Amino Transferase 16 U/L (5-37); Bilirubin Total 0.6 mg/dL (0.0-1.0); Blood Urea Nitrogen 21 mg/dL (9-16); Calcium 9.5 mg/dL (8.4-10.2); Carbon Dioxide 27 mmol/L (22-29); Chloride 106 mmol/L (96-108); Cholesterol 126 mg/dL (<200); Estimated Glomerular Filt Rate > 60; Glucose Random 98 mg/dL (60-115); HDL Cholesterol 40 mg/dL (>40); LDL Cholesterol Calculated 69 mg/dL (<100); Potassium 4.3 mmol/L (3.3-5.1); Sodium 140 mmol/L (135-145); Triglycerides 88 mg/dL (<150)
[2023-11-13 17:49] LABS: Free T4 (Free Thyroxine) 1.32 ng/dL (0.71-1.85); Thyroid Stimulating Hormone 1.04 uIU/mL (0.32-4.0)
== END 2023-11-13 16:02 | disposition home or self-care (01) ==
LOC: HO.LAB 16:01
PROVIDERS: PCP Internal Medicine; Visit Provider Internal Medicine
DX: I48.91 Unspecified atrial fibrillation (principal); E78.00 Pure hypercholesterolemia, unspecified; Z13.1 Encounter for screening for diabetes mellitus
CPT/HCPCS: 36415; 80053; 80061; 83036; 84439; 84443; 85025

== ENCOUNTER 2023-11-23 08:58 | Outpatient (AMB) | payer OTHER, SELFPAY ==
[2023-11-23 08:59] VITALS: BP 132/86; PULSE 71; O2SAT 97; BMI 33.4
--- NOTE | 2023-11-23 08:59 | A.OFFPC_ITS ---
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 Allergies No Known Allergies Allergy (Verified 11/23/23 09:02) Medication List - Last Reconciled 11/23/23 by Jess Turner MD acetaminophen 500 mg PO Q6H PRN apixaban (Eliquis) 5 mg PO BID [AUTO PAP 6-20 CM H2O humidified AIR As directed] cholecalciferol (vitamin D3) 50 mcg PO DAILY famotidine 20 mg PO BEDTIME levothyroxine 137 mcg PO QAM lovastatin 20 mg PO DAILY metoprolol succinate ER 50 mg PO DAILY Tobacco use date assessed: 05/23/23 Dental Screening Dental Screen Date: 11/23/23 Did you have a dental visit in the last 12 months?: Yes Did you have a dental problem in the last 6 months where you did not have access to dental care?: No Was dental information given to patient?: Patient has dentist HPI pe HPI Details 63-year-old obese male with atrial fibri llation, obstructive sleep apnea GERD hypercholesterolemia peripheral vascular disease and hypothyroidism coming in for physical exam last seen in September 2023. Patient's colonoscopy 02/25/2019 due in 5 years. Patient has been busy with wound care for the right medial ankle venous wound. Patient has seen vascular and having symptomatic varicose veins on the right lower extremity patient had very thin a ablation right SSV 10/24/2023. Stress test 06/26/2023 negative [facility] Medical History (Updated 11/23/23 @ 09:24 by Jess Turner MD) Hypersomnia Tubular adenoma of colon Depression Hypercholesterolemia Obesity (BMI 30-39.9) Foot deformity Hypothyroid Surgical History (Updated 10/17/23 @ 18:38 by Jess Turner MD) Hx of tonsillectomy H/O foot surgery Peripheral vascular disease Family History Mother Breast cancer in situ Son Thyroid cancer Social History (Updated 11/23/23 @ 09:28 by Jess Turner MD) Housing: House Alcohol intake: current Alcohol intake frequency: a few times a month Comment: once a week 1-2 [facility] Patient Tobacco Use Status: Never used Tobacco Tobacco use type: Cigarette e-Cigarette/Vaping Use: Never Used Second Hand Smoke Exposure: No service: No Current occupational status: employed Cognitive needs: No Hearing needs: No Vision needs: No Questionnaire PHQ-9 Over the last 2 weeks, how often have you been bothered by any of the following problems? 1. Little interest or pleasure in doing things: not at all 2. Feeling down, depressed, or hopeless: not at all 3. Trouble falling or staying asleep, or sleeping too much: not at all 4. Feeling tired or having little energy: several days 5. Poor appetite or overeating: not at all 6. Feeling bad about yourself - or that you are a failure or have let yourself or your family down: not at all 7. Trouble concentrating on things, such as reading the newspaper or watching television: not at all 8. Moving or speaking so slowly that other people could have noticed. Or the opposite - being so fidgety or restless that you have been moving around a lot more than usual: not at all 9. Thoughts that you would be better off or of hurting yourself in some way: not at all Total score: 1 Source: Developed by Drs. Pan Stone, Desire Ann, Jonathan Gutierrez and colleagues, with an educational tal from [employer]. Thrive Questionnaire Date Thrive assessed: 11/16/23 I am a: Patient What is your living situation today?: I have a steady place to live Within the past 12 months, did the food you bought not last and you didn't have the money to get more?: Never true Within the past 12 months, did you worry whether your food would run out before you got money to buy more?: Never true Do you have trouble paying for medicines?: No Do you have trouble getting transportation to medical appointments?: No Do you have trouble paying your heating and electricity bill?: No Do you have trouble taking care of your child, family member or friend?: No Do you have trouble with day-to-day activities such as bathing, preparing meals, shopping, managing finances, etc.?: No Are you currently unemployed and looking for a job?: No Are you interested in more education?: No Please select the resources that you would like help with: None Currently or been in a relationship where the following occur: No concerns reported THRIVE Score: 0 AUDIT C Alcohol Use Questionnaire (AUDIT-C) 1. How often do you have a drink containing alcohol?: 2-4 times a month 2. How many drinks containing alcohol do you have on a typical day when you are drinking?: 1 or 2 3. How often do you have six or more drinks on one occasion?: Never Total Score: 2 MAGDA-7 AMB Questionnaire MAGDA-7 Date MAGDA - 7 assessed: 05/23/23 Feeling nervous, anxious, or on edge: 0 = Not at all Not being able to stop or control worryin = Not at all Worrying too much about different things: 0 = Not at all Trouble relaxin = Not at all Being so restless that it is hard to sit still: 0 = Not at all Becoming easily annoyed or irritable: 0 = Not at all Feeling afraid as if something awful might happen: 0 = Not at all Total MAGDA-7 score (0-4 normal; 5-9 mild; 10-14 moderate; 15-21 severe): 0 Source: Developed by Drs. Pan Stone, Desire Ann, Jonathan Gutierrez and colleagues, with an educational tal from [employer]. Review of Systems Const Denies poor appetite and Denies weakness Eyes Denies no additional complaints ENT Reports Normal hearing present, Denies dizziness, Denies nasal congestion, Denies tinnitus and Denies sore throat Card Denies chest pain, Denies syncope, Denies rapid heart rate and Denies dyspnea Resp Denies cough and Denies dyspnea GI Denies change in stool character, Reports constipation, Denies diarrhea, Denies nausea and Denies vomiting Denies dysuria and Denies urinary frequency Neuro Reports Normal hearing present, Denies confusion, Denies dizziness, Denies syncope and Denies weakness Psych Denies confusion Physical exam (Primary Care) Vital Signs: Last Vital Signs Pulse 71 11/23/23 08:59 BP 132/86 11/23/23 08:59 Pulse Ox 97 11/23/23 08:59 Oxygen Delivery Method Room Air 11/23/23 08:59 BMI result Body Mass Index 33.4 Tobacco/Smoking Status: Tobacco use Status Tobacco use date assessed 05/23/23 11/23/23 08:59 Patient Tobacco Use Status Never used Tobacco 11/23/23 08:59 Tobacco use type Cigarette 11/23/23 08:59 e-Cigarette/Vaping Use Never Used 11/23/23 08:59 PHQ-9: PHQ-9 Score PHQ-9: Total score 1 11/23/23 08:59 Thrive Assessment: Date of Thrive Assessment Date Thrive assessed 11/16/23 11/23/23 08:59 Currently or been in a relationship where the following occur: No concerns reported Const General: No confusion Orientation/consciousness: No confusion HENMT Head: Yes normocephalic Ears: external ears normal and TM's normal bilaterally Face and sinus: Yes normal facial exam Mouth: moist mucous membranes Throat: Yes tonsils normal Eyes Conjunctivae: conjunctivae normal Pupils: Equal, round and reactive pupils present and Pupil accommodation reflex normal Direct Ophthalmoscopy: normal light reflex Neck Neck: No lymphadenopathy Thyroid: Thyroid normal Chest Chest palpation & inspection: normal inspection of the chest Resp Effort & Inspection: normal respiratory effort and no audible wheezes Auscultation: clear to auscultation bilaterally, no crackles, no wheezes and lung sounds not diminished Cardio Rate: regular rate Rhythm: regular rhythm Peripheral pulses: radial pulses present and dorsalis pedis present GI Other: Guaiac negative stools prostate normal Palpation (GI): no masses Auscultation: normal bowel sounds and normoactive bowel sounds Male General Exam: Yes normal external exam Skin General skin exam: no rashes or lesions noted Rashes: no rashes Neuro General: No confusion Cranial nerves: Yes Equal, round and reactive pupils present and Yes Normal hearing present Cognition (Neuro): normal cognition Gait exam (Neuro): Normal gait present Motor exam (neuro): 5/5 motor strength present throughout Deep tendon reflexes (DTR's): Right brachioradialis reflex intensity grade: 2+, Left brachioradialis reflex intensity grade: 2+, Right patellar reflex intensity grade: 2+ and Left patellar reflex intensity grade: 2+ Extrem Other: Right lower extremity bandaged so was not able to appreciate the ulcer. But patient did say that there is an also there there is a healing ulcer small 1 on the left ankle also. Coding Level of Care Code Est Pt Prev Care 40-64y(97339) Diagnoses Annual physical exam Z00.00 Obesity (BMI 30-39.9) E66.9 Hypercholesterolemia E78.00 GERD (gastroesophageal reflux disease) K21.9 Atrial fibrillation I48.91 Obstructive sleep apnea G47.33 Acquired hypothyroidism E03.9 Hypothyroidism type: acquired Peripheral vascular disease I73.9 Ankle ulcer L97.309 Assessment & Plan Assessment & Plan (1) Annual physical exam: Code(s): Z00.00 - Encounter for general adult medical examination without abnormal findings Category: Medical Plan: Patient is advised to eat healthy, keep well hydrated, keep active and have adequate sleep. (2) Obesity (BMI 30-39.9): Code(s): E66.9 - Obesity, unspecified Category: Medical Plan: Diet and exercise (3) Hypercholesterolemia: Code(s): E78.00 - Pure hypercholesterolemia, unspecified Category: Medical Plan: Avoid fried foods, chicken skin, eggs, butter margarine, pastries and meat. Be it pork or beef they have a lot of cholesterol LDL goal of less than 70 and triglyceride of less than 150. On lovastatin 20 mg at bedtime (4) GERD (gastroesophageal reflux disease): Code(s): K21.9 - Gastro-esophageal reflux disease without esophagitis Category: Medical Plan: Avoid the foods that causes that usually spicy foods, tomato products, juices, coffee, soda and foods that your sensitive to. After eating do not lie down, allow 3-4 hours before in lie down. And keep the head of bed above 30 degrees to avoid the acid from going up. On famotidine 20 mg at bedtime (5) Atrial fibrillation: Comment: May 2023 Code(s): I48.91 - Unspecified atrial fibrillation Category: Medical Plan: Continuing with anticoagulation with Eliquis November 2023 last blood work (6) Obstructive sleep apnea: Comment: Sleep study done 06/29/2023 showing moderately severe obstructive sleep apnea AHI 22 advised CPAP auto PAP mode 6-20 cm. Code(s): G47.33 - Obstructive sleep apnea (adult) (pediatric) Category: Medical Plan: Continue to use the CPAP more than 4 hours a night and benefits from this (7) Hypothyroid: Code(s): E03.9 - Hypothyroidism, unspecified Category: Medical Qualifiers: Hypothyroidism type: acquired Qualified Code(s): E03.9 - Hypothyroidism, unspecified Plan: Continue with thyroid medication (8) Peripheral vascular disease: Comment: Dr. RUTHERFORD leg procedure laser EV LT Phlebectomy October 2017 Venous ablation right lower extremity Dr. Rojas 09/21/2023 Code(s): I73.9 - Peripheral vascular disease, unspecified Category: Surgical Plan: When sitting down elevate the legs, exercise, and support stockings patient just had a procedure under vascular (9) Ankle ulcer: Comment: Left Code(s): L97.309 - Non-pressure chronic ulcer of unspecified ankle with unspecified severity Category: Medical Plan: Continue to follow-up with wound care Orders: Orders Lipid Panel 6 Months E78.00 - Pure hypercholesterolemia, unspecified Prostate Specific Antigen Scr 6 Months E78.00 - Pure hypercholesterolemia, unspecified Complete Blood Count Auto Diff 6 Months E78.00 - Pure hypercholesterolemia, unspecified Comprehensive Met. Panel 6 Months E78.00 - Pure hypercholesterolemia, unspecified Free T4 (Free Thyroxine) 6 Months E78.00 - Pure hypercholesterolemia, unspecified Thyroid Stimulating Hormone 6 Months E78.00 - Pure hypercholesterolemia, unspecified Vitamin B12 and Folate 6 Months E78.00 - Pure hypercholesterolemia, unspecified B Type Natriuretic Peptide 6 Months E78.00 - Pure hypercholesterolemia, unspecified
== END 2023-11-23 09:44 | disposition home or self-care (01) ==
PROVIDERS: PCP Internal Medicine; Visit Provider Internal Medicine
DX: Z00.00 Encounter for general adult medical examination without abnormal findings (principal); I48.91 Unspecified atrial fibrillation; I73.9 Peripheral vascular disease, unspecified; L97.309 Non-pressure chronic ulcer of unspecified ankle with unspecified severity; E66.9 Obesity, unspecified; Z68.33 Body mass index [BMI] 33.0-33.9, adult; E78.00 Pure hypercholesterolemia, unspecified; K21.9 Gastro-esophageal reflux disease without esophagitis; G47.33 Obstructive sleep apnea (adult) (pediatric); E03.9 Hypothyroidism, unspecified

== ENCOUNTER → 2023-11-23 08:58 | Outpatient (BNVA) | payer OTHER, SELFPAY | PROVIDERS: PCP Internal Medicine; Visit Provider Internal Medicine ==

== ENCOUNTER 2023-11-27 08:38 | Outpatient (AMB) | payer OTHER, SELFPAY ==
[2023-11-27 08:46] VITALS: BP 120/70; PULSE 78; BMI 33.8
--- NOTE | 2023-11-27 08:46 | MHC.OFFVIS ---
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 In the past, he has been seen by our nurse practitioner and he is seeing me for the 1st time. He has been followed for asymptomatic atrial flutter/fibrillation. Patient himself states he does not feel anything. No angina or shortness of breath or palpitations or in fact anything cardiac sounding. He states he is getting along fine. Also has obstructive sleep apnea on CPAP. No known coronary disease or myocardial infarction or cardiomyopathy. COUNT INCLUDES THE [facility] Medical History (Updated 11/27/23 @ 09:45 by Ariel Blanco MD) Hypersomnia Tubular adenoma of colon Depression Hypercholesterolemia Obesity (BMI 30-39.9) Foot deformity Hypothyroid Surgical History Hx of tonsillectomy H/O foot surgery Peripheral vascular disease Family History Mother Breast cancer in situ Son Thyroid cancer Social History Housing: House Alcohol intake: current Alcohol intake frequency: a few times a month Comment: once a week 1-2 beers Patient Tobacco Use Status: Never used Tobacco Tobacco use type: Cigarette e-Cigarette/Vaping Use: Never Used Second Hand Smoke Exposure: No service: No Current occupational status: employed Cognitive needs: No Hearing needs: No Vision needs: No Review of Systems Const Denies chills, Denies fatigue, Denies fever(s), Denies weight gain and Denies weight loss ENT Denies dizziness Card Denies chest pain, Denies leg edema, Denies lightheadedness, Denies palpitations, Denies dyspnea on exertion, Denies orthopnea and Denies other Resp Denies cough and Denies dyspnea on exertion GI Denies hematochezia and Denies change in stool character Musc Denies abnormal gait, Denies muscle weakness, Denies numbness, Denies radiating pain into limb and Denies tingling Neuro Denies abnormal gait, Denies dizziness, Denies numbness and Denies tingling Endo Denies fatigue and Denies palpitations Physical Exam Vital Signs: Last Vital Signs Pulse 78 11/27/23 08:46 BP 120/70 11/27/23 08:46 BMI result Body Mass Index 33.8 Const General: comfortable and no acute distress Orientation/consciousness: patient oriented x3 HEENT Other: Unremarkable Head: Yes normal to inspection Neck Neck: Yes normal visual inspection Chest Chest palpation & inspection: normal inspection of the chest Resp Auscultation: clear to auscultation bilaterally Cardio Palpation: normal PMI Heart sounds: S1 normal heart sound present, S2 normal heart sound present, no gallops, no murmurs and no rubs GI Palpation (GI): Soft to palpation Back/Spine/Pelvis Other: unremarkable Skin General skin exam: no rashes or lesions noted Neuro General: patient oriented x3 Extrem General: Yes normal to inspection Psych Mental Status: mental status grossly normal Assessment & Plan Assessment & Plan (1) Paroxysmal atrial fibrillation: Code(s): I48.0 - Paroxysmal atrial fibrillation Category: Medical Plan: In the initial EKG, atrial flutter with controlled rate at 94/Min. PVCs versus aberrant conduction. Echocardiogram with LVEF of 55-60%. No significant valvular findings. In the Holter monitor, underlying rhythm is sinus. Atrial fibrillation burden is about 9%. No significant osiris arrhythmias. Myocardial perfusion imaging study with normal perfusion. As he feels well, continue current regimen. We will recheck Holter and limited echocardiogram for LVEF before next visit. If there is significant atrial fibrillation burden, consider rhythm control. However, he has got no symptoms. (2) Obstructive sleep apnea: Comment: Sleep study done 06/29/2023 showing moderately severe obstructive sleep apnea AHI 22 advised CPAP auto PAP mode 6-20 cm. Code(s): G47.33 - Obstructive sleep apnea (adult) (pediatric) Category: Medical Plan: Continue CPAP. Orders: Orders CA Echo Limited 6 Months I48.91 - Unspecified atrial fibrillation ECG 3 day holter monitor 6 Months I48.91 - Unspecified atrial fibrillation Coding Level of Care Code Est Pt Level 4 (31799) Diagnoses Paroxysmal atrial fibrillation I48.0 Obstructive sleep apnea G47.33
== END 2023-11-27 09:01 | disposition home or self-care (01) ==
PROVIDERS: PCP Internal Medicine; Visit Provider Internal Medicine
DX: I48.0 Paroxysmal atrial fibrillation (principal); G47.33 Obstructive sleep apnea (adult) (pediatric)
CPT/HCPCS: 99214

== ENCOUNTER → 2023-11-27 08:38 | Outpatient (BNVA) | payer OTHER, SELFPAY | PROVIDERS: PCP Internal Medicine; Visit Provider Internal Medicine ==

== ENCOUNTER → 2024-05-20 08:57 | Outpatient (REF) | payer OTHER, SELFPAY ==
--- NOTE | 2024-05-20 09:06 | CA_ITS ---
Transthoracic Echocardiogram Patient (Last, First, Middle): Doug Palma J Gender: Male Date of : 1960 Age: 63 Procedure Date: 05/20/2024 Procedure Type: Transthoracic Echocardiogram Location: OP Height: 182.88 cm Weight: 113.4 kg BSA: 2.34 m2 Heart Rate: bpm BP: 128 / 72 mmHg Evp Marketing: SB Referring MD: Ariel Blanco MD Clinical Training Specialist: Jorge Darling MD Symptoms: I48.91 - Unspecified atrial fibrillation Study Quality: Adequate/limited ordered for LVEF eval ECG Rhythm: Atrial Fibrillation Conclusions: - Normal LV ejection fraction 55-60% with moderate asymmetric septal hypertrophy Findings Left Ventricle Normal left ventricular size, thickness, and systolic function. The visually estimated ejection fraction is between 55-60%. There is moderate septal asymmetric hypertrophy. Prior Study Comparison No significant change compared to prior study dated: 06/29/2023. Measurements 2D Linear Measurements IVSd: 1.58 0.6-0.9/0.6-1.0 cm LVIDd: 4.64 3.9-5.3/4.2-5.9 cm LVIDd Index: 1.98 2.4-3.2/2.2-3.1 cm/m2 LVIDs: 3.28 2.0-3.6 cm LVPWd: 0.68 0.7-1.1 cm LV Mass: 237.46 67-162/88-224 g LV Mass Index: 101.48 43-95/49-115 g/m2 2D Systolic Function EF 4C: 48.70 >55% EF 2C: 65.40 >55% EF BiP: 58.80 >55% Mitral Valve MV Pk E: 0.98 MV Decel Time: 127.00 Diastolic Function MV Pk E: 0.98 Tricuspid Valve RA Press: 8.00 Great Vessels Aorta Sinus of Valsalva: 3.70 2.0-3.5 cm Ao Asc: 3.60 2.1-3.4 cm Updated in Other Vendor System with Status of Final Jorge Darling MD electronically signed on 05/20/2024 12:07:02 PM with status of Final
== END ==
LOC: HO.CARD 08:57
PROVIDERS: PCP Internal Medicine; Visit Provider Internal Medicine
DX: I48.91 Unspecified atrial fibrillation (principal)
CPT/HCPCS: 93242; 93308

== ENCOUNTER → 2024-05-20 09:06 | Outpatient (BNV) | payer OTHER, SELFPAY | PROVIDERS: PCP Internal Medicine; Visit Provider Internal Medicine Cardiovascular Disease | DX: I42.2 Other hypertrophic cardiomyopathy (principal); I48.91 Unspecified atrial fibrillation | CPT/HCPCS: 93244; 93308 ==

== ENCOUNTER 2024-05-23 08:35 | Outpatient (AMB) | payer OTHER, SELFPAY ==
[2024-05-23 08:44] VITALS: BP 130/62; PULSE 71; O2SAT 97; BMI 34.2
--- NOTE | 2024-05-23 08:44 | A.OFFPC_ITS ---
Vital Signs 05/23/24 08:44 Height 6 ft Weight 252 lb BMI 34.2 BP 130/62 Blood Pressure Location Lt brachial Position Sitting Pulse 71 Pulse Source Pulse Oximeter Pulse Oximetry (%) 97 Oxygen Delivery Method Room Air Intake Visit Reasons: Peripheral vascular disease Allergies No Known Allergies Allergy (Verified 05/23/24 08:45) Tobacco use date assessed: 05/23/24 Dental Screening Dental Screen Date: 05/23/24 Did you have a dental visit in the last 12 months?: Yes Did you have a dental problem in the last 6 months where you did not have access to dental care?: No Was dental information given to patient?: Patient has dentist [facility] Medical History (Updated 11/27/23 @ 09:45 by Ariel Blanco MD) Hypersomnia Tubular adenoma of colon Depression Hypercholesterolemia Obesity (BMI 30-39.9) Foot deformity Hypothyroid Surgical History Hx of tonsillectomy H/O foot surgery Peripheral vascular disease Family History Mother Breast cancer in situ Son Thyroid cancer Social History Housing: House Alcohol intake: current Alcohol intake frequency: a few times a month Comment: once a week 1-2 beers Patient Tobacco Use Status: Never used Tobacco Tobacco use type: Cigarette e-Cigarette/Vaping Use: Never Used Second Hand Smoke Exposure: No service: No Current occupational status: employed Cognitive needs: No Hearing needs: No Vision needs: No Questionnaire PHQ-9 Over the last 2 weeks, how often have you been bothered by any of the following problems? 1. Little interest or pleasure in doing things: not at all 2. Feeling down, depressed, or hopeless: not at all 3. Trouble falling or staying asleep, or sleeping too much: not at all 4. Feeling tired or having little energy: several days 5. Poor appetite or overeating: not at all 6. Feeling bad about yourself - or that you are a failure or have let yourself or your family down: not at all 7. Trouble concentrating on things, such as reading the newspaper or watching television: not at all 8. Moving or speaking so slowly that other people could have noticed. Or the opposite - being so fidgety or restless that you have been moving around a lot more than usual: not at all 9. Thoughts that you would be better off or of hurting yourself in some way: not at all Total score: 1 Depression Screening Interpretation: Positive Depression Screening Done: Yes Source: Developed by Drs. Pan Stone, Desire Ann, Jonathan Gutierrez and colleagues, with an educational tal from [employer]. Thrive Questionnaire Date Thrive assessed: 05/23/24 I am a: Patient What is your living situation today?: I have a steady place to live Within the past 12 months, did the food you bought not last and you didn't have the money to get more?: Never true Within the past 12 months, did you worry whether your food would run out before you got money to buy more?: Never true Do you have trouble paying for medicines?: No Do you have trouble getting transportation to medical appointments?: No Do you have trouble paying your heating and electricity bill?: No Do you have trouble taking care of your child, family member or friend?: No Do you have trouble with day-to-day activities such as bathing, preparing meals, shopping, managing finances, etc.?: No Are you currently unemployed and looking for a job?: No Are you interested in more education?: No Please select the resources that you would like help with: None Currently or been in a relationship where the following occur: No concerns reported THRIVE Score: 0 AUDIT C Alcohol Use Questionnaire (AUDIT-C) 3. How often do you have six or more drinks on one occasion?: Less than monthly Total Score: 1 MAGDA-7 AMB Questionnaire MAGDA-7 Date MAGDA - 7 assessed: 05/23/24 Feeling nervous, anxious, or on edge: 0 = Not at all Not being able to stop or control worryin = Not at all Worrying too much about different things: 0 = Not at all Trouble relaxin = Not at all Being so restless that it is hard to sit still: 0 = Not at all Becoming easily annoyed or irritable: 0 = Not at all Feeling afraid as if something awful might happen: 0 = Not at all Total MAGDA-7 score (0-4 normal; 5-9 mild; 10-14 moderate; 15-21 severe): 0 Source: Developed by Drs. Pan Stone, Desire Ann, Jonathan Gutierrez and colleagues, with an educational tal from [employer]. Physical exam (Primary Care) Vital Signs: Last Vital Signs Pulse 71 05/23/24 08:44 BP 130/62 05/23/24 08:44 Pulse Ox 97 05/23/24 08:44 Oxygen Delivery Method Room Air 05/23/24 08:44 BMI result Body Mass Index 34.2 Tobacco/Smoking Status: Tobacco use Status Tobacco use date assessed 05/23/24 05/23/24 08:49 Patient Tobacco Use Status Never used Tobacco 05/23/24 08:49 Tobacco use type Cigarette 05/23/24 08:49 e-Cigarette/Vaping Use Never Used 05/23/24 08:49 PHQ-9: PHQ-9 Score PHQ-9: Total score 1 05/23/24 08:50 Depression Screening Interpretation: Positive Thrive Assessment: Date of Thrive Assessment Date Thrive assessed 05/23/24 05/23/24 08:49 Currently or been in a relationship where the following occur: No concerns reported Const General: alert; No acute distress Eyes Conjunctivae: conjunctivae normal Resp Auscultation: clear to auscultation bilaterally Cardio Rate: regular rate Rhythm: regular rhythm GI Inspection: Yes normal to inspection Extrem General: Yes normal to inspection and No edema Coding Level of Care Code Est Pt Level 4 (53443) Complex EM visit Add On G2211 Diagnoses Paroxysmal atrial fibrillation I48.0 Peripheral vascular disease I73.9 Acquired hypothyroidism E03.9 Hypothyroidism type: acquired Obstructive sleep apnea G47.33 Ankle ulcer L97.309 GERD (gastroesophageal reflux disease) K21.9 Hypercholesterolemia E78.00 Obesity (BMI 30-39.9) E66.9 Assessment & Plan Assessment & Plan (1) Paroxysmal atrial fibrillation: Code(s): I48.0 - Paroxysmal atrial fibrillation Category: Medical Plan: Continuing with anticoagulation with Eliquis twice a day year blood work requested November was the last blood work. Will request for new 1 (2) Peripheral vascular disease: Comment: Dr. RUTHERFORD leg procedure laser EV LT Phlebectomy October 2017 Venous ablation right lower extremity Dr. Rojas 09/21/2023 Varithena ablation January Code(s): I73.9 - Peripheral vascular disease, unspecified Category: Surgical Plan: Continue to follow-up with vascular surgeon and has had Varithena ablation SSV in January 2024 (3) Hypothyroid: Code(s): E03.9 - Hypothyroidism, unspecified Category: Medical Qualifiers: Hypothyroidism type: acquired Qualified Code(s): E03.9 - Hypothyroidism, unspecified Plan: Continue with thyroid medication November last blood work (4) Obstructive sleep apnea: Comment: Sleep study done 06/29/2023 showing moderately severe obstructive sleep apnea AHI 22 advised CPAP auto PAP mode 6-20 cm. Code(s): G47.33 - Obstructive sleep apnea (adult) (pediatric) Category: Medical Plan: Continue to use the CPAP more than 4 hours a night and benefits from this (5) Ankle ulcer: Comment: Left Code(s): L97.309 - Non-pressure chronic ulcer of unspecified ankle with unspecified chayito rity Category: Medical Plan: Patient continues to follow-up with wound care description of bilateral medial ankle wounds which are healing (6) GERD (gastroesophageal reflux disease): Code(s): K21.9 - Gastro-esophageal reflux disease without esophagitis Category: Medical Plan: Avoid the foods that causes that usually spicy foods, tomato products, juices, coffee, soda and foods that your sensitive to. After eating do not lie down, allow 3-4 hours before in lie down. And keep the head of bed above 30 degrees to avoid the acid from going up. (7) Hypercholesterolemia: Code(s): E78.00 - Pure hypercholesterolemia, unspecified Category: Medical Plan: Avoid fried foods, chicken skin, eggs, butter margarine, pastries and meat. Be it pork or beef they have a lot of cholesterol LDL goal of less than 70 and triglyceride of less than 150 on rosuvastatin 20 mg once a day (8) Obesity (BMI 30-39.9): Code(s): E66.9 - Obesity, unspecified Category: Medical Plan: Diet and exercise Plan History of Present Illness The patient is a 63-year-old male presenting for follow-up on chronic conditions and management of ankle ulcers. He has histories of hypothyroidism, hypercholesterolemia, GERD, and peripheral arterial disease. The patient reports use of CPAP therapy more than four hours nightly for obstructive sleep apnea. Bilateral medial ankle venous ulcers have shown improvement with wound care and the application of Unaboots, with some minor leaking on the right side but healing overall. The patient underwent a saphenous vein ablation in January 2024, and recent cardiovascular monitoring via an echocardiogram in May 2024 showed normal cardiac function with a moderate hypertrophy. Anticoagulation therapy with Eliquis is continued for atrial fibrillation risk. Recent blood work exhibits stable kidney function, normal thyroid and liver function, control of cholesterol with a current LDL of 69 mg/dL, and effective diabetes management with normal blood sugar and hemoglobin A1c. Preventive health needs include a follow-up colorectal screening due. The patient is awaiting a call for a subsequent ablation procedure by his vascular surgeon. His vaccinations are mostly up to date, except for tetanus and pneumococcal vaccines, which he should address due to age and potential insurance barriers. Health Maintenance - Cholesterol management with target LDL below 117 mg/dL, using Rosuvastatin 20 mg daily. - Thyroid function monitored with routine blood work; last results were normal. - Routine echocardiograms every six months for cardiac function monitoring, recent ejection fraction 55-60%. - Regular wound care follow-up for bilateral medial ankle ulcers. - Screen for colorectal cancer recall test needed as last performed in February 2019. - Continuous positive airway pressure (CPAP) for obstructive sleep apnea, effective usage confirmed. - Vaccinations: Tetanus and pneumococcal vaccines are due; TD to be obtained from a pharmacy. Social History - Works night shifts, affecting sleep schedule. - No reported issues with daily water intake. - Maintains activity level through occupational requirements. Review of Systems - Cardiovascular: Reports heart rhythm monitoring. - Respiratory: Confirms regular use of CPAP with effective management of sleep apnea. - Gastrointestinal: Denies nausea, vomiting, changes in bowel movements. - Genitourinary: Denies nocturia. - Dermatological: Reports healing ulcers, slight leakage from right ankle. - Neurological: Denies any fever, nausea, or vomiting. Physical Exam - General- None specified. - Dermatological- Observations of bilateral medial ankle ulcers healing, noted slight leaking on the right side; otherwise, dry appearance was indicated during the unwound examination. Results - Labs: Normal blood count, electrolytes, renal function at 1.13, liver function, LDL cholesterol at 69 mg/dL, normal hemoglobin A1c. - Tests and Diagnostics: Echocardiogram showed normal left ventricular ejection fraction of 55-60% with moderate symmetric septal hypertrophy. Recent myocardial perfusion test with normal results. Plan The patient?s ongoing management includes anticoagulation therapy with Eliquis to manage atrial fibrillation. CPAP therapy is crucial for managing his obstructive sleep apnea and monitoring its effect on heart rhythms. Scheduled echocardiograms and biannual blood work will continue to evaluate cardiac and renal functions. The patient is encouraged to follow wound care protocols for his bilateral ankle ulcers. Adherence to current cholesterol treatments with Rosuvastatin has shown effective results with LDL at 69 mg/dL. Thyroid function stability and continued medication adherence are noted. The patient is advised to plan for tetanus and pneumonia vaccinations with pharmacy assistance and to arrange for a rescheduled colorectal screening. 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 Patient was informed and verbally consented to the use of an ambient scribe for clinic note documentation during this visit. Discussion Notes During the consultation, we extensively discussed the need for managing his atrial fibrillation with anticoagulation therapy and the importance of routine echocardiograms. The patient expressed understanding of the necessity of CPAP therapy in mitigating his sleep apnea and the implications of his cardiac rhythm management. We reviewed the patient?s cholesterol management strategy with Rosuvastatin, reinforcing adherence to reduce cardiovascular risks. I advised the patient on the imperative of organized health maintenance; particularly, the necessity for tetanus and pneumonia vaccination, explaining potential insurance options and coverage. Future plans were made regarding frequent blood work to monitor anticoagulation therapy and thyroid function. The patient is counseled on health maintenance, especially regarding the colorectal screening due and the role of vaccinations in preventive care. Patient Instructions - Continue using CPAP therapy nightly for effective sleep apnea management. - Follow-up with wound care appointments regularly for ankle ulcer supervision. - Maintain vigilance with prescribed medications, including Rosuvastatin and antithyroid treatments. - Schedule necessary inoculations with the pharmacy, including tetanus and pneumonia vaccines. - Plan for a recall colonoscopy screening as per prior scheduling details. - Monitor any changes in symptoms or health status and report immediately. - Adhere to scheduled blood work and echocardiograms biannually to monitor treatment progress. - Address any insurance issues regarding vaccinations to ensure coverage is understood and received. Orders: Orders Complete Blood Count Auto Diff 6 Months I48.0 - Paroxysmal atrial fibrillation Thyroid Stimulating Hormone 6 Months I48.0 - Paroxysmal atrial fibrillation Magnesium Today I48.0 - Paroxysmal atrial fibrillation Comprehensive Met. Panel 6 Months I48.0 - Paroxysmal atrial fibrillation Free T4 (Free Thyroxine) 6 Months I48.0 - Paroxysmal atrial fibrillation
--- OUTSIDE RECORDS SUMMARY | 2024-05-23 09:06 | XMS_ITS | Continuity of Care Document ---
Author Organization [facility] Address [address] [place] [address] Phone Care Team Providers Care Local Government Legislator Name Role Phone Jimbo PEREZ, RVT, TANG, Pan Unavailable U navailable Allergies, Adverse Reactions, Alerts Substance Reaction Status Criticality No Known Allergies Active No Inform ation Medications Medication Instructions Dosage Effective Dates (start - stop) Status Comments lidocaine-prilocaine 2.5 %-2.5 % topical cream Apply thin layer of cream to leg and cover with plastic wrap two hours prior to procedure . for Pain - Active famotidine 20 mg tablet - Ac tive levothyroxine 125 mcg capsule - Active K2 Plus D3 1,000 unit-100 mcg tablet - Active simvastatin 5 mg tablet - Ac tive acetaminophen 325 mg capsule - Active Procedures Procedure Date Office/Outpt E&M Established 15 Mins Aug Duplex Scan-extrem Veins; Uni/ 23 Varithena, Single Truncal Vein Office/Outpt E&M Established 15 Mins June Duplex Scan-extrem Veins; Comp Office/Outpt E&M Established 15 Mins May Advance Directives Directive Yes / No Effective Date File Name No Information Encounters Encounter Description Practice Location Reason(s) For Visit Diagnoses Date Provider Providers Copied on Encounter [facility], [address], [id number], [place] tel:[phone] [facility] - [place] No Information 5 Jimbo PEREZ, RVT, TANG Perla. [address], [address], [place], [place], [id number] , [place]. tel:[phone] Office/Outpt E&M Established 15 Mins [place] [facility], [address] [place] [address] Dr [address] [place], [id number], [place] tel:[phone] [facility] - [facility] Chronic venous htn w ulcer and inflam of bilateral low extrm 3 Derrick PEREZ FACS RVT TANG Romero. [address], [address] [facility], [place], [address], [place]. [phone] Referring Provider: Jess Turner MD, [address] [facility] [address] [address] [place] [address] [place], [address]. tel:[phone] [place] [facility], [address] [place] [address] Dr [address], [id number], [place] tel:[phone] [facility] - [facility] Encntr for f/u exam aft trtmt for cond oth than malig neoplmVenous insufficiency (chronic) (peripheral) 3 Derrick PEREZ FACS RVT TANG Romero. [address] [facility] [address], [address] [facility], [place], [address], [place]. tel:[phone] Referring Provider: Jess Turner MD, [address] [facility] [address] [facility] [place], [address]. tel:[phone] [place] [facility], [address] [place] [address] [address], [id number], [place] tel:[phone] [facility] - [facility] Venous insufficiency (chronic) (peripheral) 3 Derrick PEREZ FACS RVT TANG Romero. [address], [address], [place], [address], [place]. tel:[phone] Referring Provider: Jess Turner MD, [address] [facility] [address] [facility] [place], [address]. tel:[phone] [place] [facility], [address] [place] [address] [address]Suite [place], [id number], [place] tel:[phone] [facility] - [facility] No Information 3 Derrick PEREZ FACS RVT RPRONNI Novint Nick. [address], [address] [facility], [place], [address], [place]. [phone] Referring Provider: Jess Turner MD, [address] [facility] [address] [place] [address] [place], [address]. tel:[phone] Office/Outpt E&M Established 15 Mins [place] [facility], [address] [place] [address] Dr [address]Suite [place], [id number], [place] tel:[phone] CVR - [facility] Chronic venous htn w inflammation of bilateral low extrm 3 Derrick PEREZ FACS T TANG Novint Nick. [address], [address] [facility], [place], [address], [place]. [phone] Referring Provider: Jess Turner MD, [address] [facility] [address] [place] [address] [place], [address]. tel:[phone] [facility], [address] [place] [address] Dr [address] [place], [id number], [place] tel:[phone] CV[facility] - [facility] Venous insufficiency (chronic) (peripheral)Pa in in right legPain in left leg 3 Derrick PEREZ FACS RVT TANG Novint Nick. [address], [address] [facility], [place], [address], [place]. [phone] Referring Provider: Jess Turner MD, [address] [facility] [address] [facility] [place], [address]. tel:[phone] [facility] [facility], [address] [place] [address] [address], [id number], [place] tel:[phone] [facility] No Information May- 3 Derrick PEREZ FACS David Romero. [address] [address], [place], [address], [place]. tel:[phone] Referring Provider: Jess Turner MD, [address] [place] [address] Dr [address] [facility] [place], [address]. tel:[phone] Office/Outpt E&M Established 15 Mins [facility], [address], [place], [id number], [place] tel:[phone] [facility] Body mass index (BMI) 33.0-33.9, adultChronic venous htn w ulcer and inflam of bilateral low extrm 3 Der[facility] Romero. [address] [facility], [address] [address], [place], [address], [place]. tel:[phone] Referring Provider: Jess Turner MD, [address] [place] [address] Dr [address] [facility] [place], [address]. tel:[phone] Family History Family Member Type Diagnosis Age At Onset No Information Payers Payer name Insurance type Covered green party ID Authoriza tion(s) No Information Social History Type Description Quantity Date Captured Comments Sex Male Smoking Status No Information Chief Complaint And Reason For Visit No Information Reason For Referral Reason For Referral No Information Plan Of Treatment Date Type Action Status Goal Diet education completed History Of Present Illness Encounter Date Complaint History Of Prese nt Illness No Information Functional Status Date Functional Assessmen t No Information Instructions Date Instruction Additional Infor mation Patient education booklet given Related to Chronic Venous Hypertension - Ulcer + Inflammtn; BILAT Giving Encouragement to Exercise Related to Body mass index [BMI] 33.0-33.9, adult Diet education Related to Body mass index [BMI] 33.0-33.9, adult Patient education booklet given Related to Chronic Venous Hypertension - Ulcer + Inflammtn; BILAT Assessments Type Assessment Date No Information Patient Care Teams Name Effective Dates (start - stop) Status Members No Information
== END 2024-05-23 09:32 | disposition home or self-care (01) ==
LOC: HO.HMCH 08:36
PROVIDERS: PCP Internal Medicine; Visit Provider Internal Medicine
DX: I48.0 Paroxysmal atrial fibrillation (principal); I73.9 Peripheral vascular disease, unspecified; L97.309 Non-pressure chronic ulcer of unspecified ankle with unspecified severity; E03.9 Hypothyroidism, unspecified; G47.33 Obstructive sleep apnea (adult) (pediatric); K21.9 Gastro-esophageal reflux disease without esophagitis; E78.00 Pure hypercholesterolemia, unspecified; E66.9 Obesity, unspecified

== ENCOUNTER 2024-05-23 08:35 | Outpatient (REF) | payer OTHER, SELFPAY ==
[2024-05-23 16:50] LABS: MANUAL DIFF FLAG NO
[2024-05-23 17:21] LABS: Basophils Percent Auto 0.7 % (0-2); Eosinophils Absolute Auto 0.2 X10*3/uL (0.0-0.4); Eosinophils Percent Auto 2.6 % (0-4); Hematocrit 48.3 % (42.0-52.0); Hemoglobin 15.9 g/dl (14.0-18.0); Imm Gran Abs Auto 0.03 X10*3/uL (0.00-0.03); Imm Gran Pct Auto 0.5 % (0.0-0.4); Lymphocytes Absolute Auto 1.5 X10*3/uL (1.2-4.9); Lymphocytes Percent Auto 25.3 % (20-40); Mean Corpuscular HGB Conc 32.9 g/dl (31.0-36.0); Mean Corpuscular Hemoglobin 30.6 pg (27.0-33.0); Mean Corpuscular Volume 92.9 fL (80.0-98.0); Mean Platelet Volume 11.1 fL (9.4-12.4); Monocytes Absolute Auto 0.7 X10*3/uL (0.1-1.2); Monocytes Percent Auto 12.9 % (2-11); Neutrophils Absolute Auto 3.3 x10*3/uL (2.0-8.3); Platelet Count 195 X10*3/uL (160-400); Red Cell Distribution Width 13.5 % (11.0-16.0); White Blood Count 5.7 X10*3/uL (4.8-10.8)
[2024-05-23 17:44] LABS: B Type Natriuretic Peptide 98 pg/mL (<100)
[2024-05-23 17:53] LABS: Alanine Aminotransferase 31 U/L (0-40); Albumin Level 3.9 g/dL (3.5-5.0); Anion Gap 11 (12-20); Aspartate Amino Transferase 39 U/L (5-37); Bilirubin Total 0.7 mg/dL (0.0-1.0); Blood Urea Nitrogen 26 mg/dL (9-16); Calcium 9.3 mg/dL (8.4-10.2); Carbon Dioxide 28 mmol/L (22-29); Chloride 108 mmol/L (96-108); Cholesterol 130 mg/dL (<200); Estimated Glomerular Filt Rate > 60; Glucose Random 91 mg/dL (60-115); HDL Cholesterol 42 mg/dL (>40); LDL Cholesterol Calculated 72 mg/dL (<100); Magnesium 2.1 mg/dL (1.6-2.6); Potassium 3.7 mmol/L (3.3-5.1); Sodium 143 mmol/L (135-145); Total Protein 6.5 g/dL (6.5-8.0); Triglycerides 82 mg/dL (<150)
[2024-05-23 18:06] LABS: Alkaline Phosphatase 84 U/L (39-117)
[2024-05-23 18:10] LABS: Free T4 (Free Thyroxine) 1.38 ng/dL (0.71-1.85); Thyroid Stimulating Hormone 1.02 uIU/mL (0.32-4.0)
[2024-05-23 18:18] LABS: Folate 12.1 ng/mL (> or = 4.0); Vitamin B12 584 pg/mL (200-900)
--- OUTSIDE RECORDS SUMMARY | 2024-05-23 18:26 | XMS_ITS | Continuity of Care Document ---
Author Organization [facility] Address [address] [place] [address] Phone Care Team Providers Care Business Insight And Analytics Manager Name Role Phone Jimbo PEREZ, RVT, TANG, [...] Providers Copied on Encounter [facility], [address], [id number], [place] tel:[phone] [facility] - [place] - [place] No Information 5 Jimbo PEREZ, RVT, TANG Perla. [address] [facility] [address] [facility], [address], [place], [place], [id number] , [place]. tel:[phone] Office/Outpt E&M Established 15 Mins [place] [facility], [address] [place] [address] Dr [address]Mir [place], [id number], [place] tel:[phone] CVR - [facility] Chronic venous htn w ulcer and inflam of bilateral low extrm 3 Derrick PEREZ FACS RVT TANG Romero. [address] [facility], [address] [facility], [place], [address], [place]. [phone] Referring Provider: Jess Turner MD, [address] [facility] [address] [place] [address] [place], [address]. tel:[phone] [place] [facility], [address] [place] [address] Dr [address], [id number], [place] tel:[phone] CVR - [facility] Encntr for f/u exam aft trtmt for cond oth than malig neoplmVenous insufficiency (chronic) (peripheral) 3 Derrick PEREZ FACS RVT TANG Romero. [address] [facility] [address] [facility], [address] [facility], [place], [address], [place]. tel:[phone] Referring Provider: Jess Turner MD, [address] [facility] [place], [address]. [phone] [place] [facility], [address] [place] [address] [address]Mir [place], [id number], [place] tel:[phone] CVR - [facility] Venous insufficiency (chronic) (peripheral) 3 Derrick PEREZ FACS RVT TANG Romero. [address] [facility], [address], [place], [address], [place]. tel:[phone] Referring Provider: Jess Turner MD, [address] [facility] [facility], [address]. tel:[phone] [place] [facility], [address] [place] [address] [address]Suite [place], [id number], [place] tel:[phone] CVR - [facility] No Information 3 Derrick PEREZ FACS RVT RPRONNI [employer] Nick. [address] [facility] [address], [address] [facility], [place], [address], [place]. [phone] Referring Provider: Jess Turner MD, [address] [facility] [place] [address] [place], [address]. tel:[phone] Office/Outpt E&M Established 15 Mins [place] [facility], [address] [place] [address] Dr [address] [place], [id number], [place] tel:[phone] CVR - [facility] Chronic venous htn w inflammation of bilateral low extrm 3 Derrick PEREZ FACS T TANG [employer] Nick. [address] [facility], [address] [facility], [place], [address], [place]. [phone] Referring Provider: Jess Turner MD, [address] [facility] [address] [place] [address] [place], [address]. tel:[phone] [facility], [address] [place] [address] Dr [address] [place], [id number], [place] tel:[phone] CVR - [facility] Venous insufficiency (chronic) (peripheral)Pa in in right legPain in left leg 3 Derrick PEREZ FACS RVT TANG [employer] Nick. [address] [facility], [address] [facility], [place], [address], [place]. [phone] Referring Provider: Jess Turner MD, [address] [facility], [address]. tel:[phone] [facility] [facility], [address] [place] [address] [address]Mir [place], [id number], [place] tel:[phone] [facility] No Information May- 3 Derrick PEREZ FACS David Romero. [address] [address], [place], [address], [place]. tel:[phone] Referring Provider: Jess Turner MD, [address] [place] [address] Dr [address] [facility], [address]. tel:[phone] Office/Outpt E&M Established 15 Mins [facility], [address], [place], [id number], [place] tel:[phone] [facility] Body mass index (BMI) 33.0-33.9, adultChronic venous htn w ulcer and inflam of bilateral low extrm 3 Der[facility]. [address] [facility], [address] [address], [place], [address], [place]. tel:[phone] Referring Provider: Jess Turner MD, [address] [place] [address] Dr [address] [facility], [address]. tel:[phone] Family History Family Member Type Diagnosis Age At Onset No Information Payers Payer name Insurance type Covered alliance party ID Authoriza tion(s) No Information Social [...]
== END 2024-05-23 08:36 | disposition home or self-care (01) ==
LOC: HO.LAB 08:35
PROVIDERS: PCP Internal Medicine; Visit Provider Internal Medicine
DX: I48.0 Paroxysmal atrial fibrillation (principal); E78.00 Pure hypercholesterolemia, unspecified; I73.9 Peripheral vascular disease, unspecified; E03.9 Hypothyroidism, unspecified; G47.33 Obstructive sleep apnea (adult) (pediatric); L97.309 Non-pressure chronic ulcer of unspecified ankle with unspecified severity; K21.9 Gastro-esophageal reflux disease without esophagitis; E66.9 Obesity, unspecified; Z12.5 Encounter for screening for malignant neoplasm of prostate
CPT/HCPCS: 36415; 80053; 80061; 82607; 82746; 83735; 83880; 84153; 84439; 84443; 85025

== ENCOUNTER 2024-06-04 09:15 | Outpatient (AMB) | payer OTHER, SELFPAY ==
--- NOTE | 2024-06-04 09:18 | MHC.OFFVIS ---
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 Patient himself states he does not feel anything. No angina or shortness of breath or palpitations or in fact anything cardiac sounding. He states he is getting along fine. Also has obstructive sleep apnea on CPAP. No known coronary disease or myocardial infarction or cardiomyopathy. Has obstructive sleep apnea on CPAP. [facility] Medical History (Updated 06/04/24 @ 10:37 by Ariel Blanco MD) Hypersomnia Tubular adenoma of colon Depression Hypercholesterolemia Obesity (BMI 30-39.9) Foot deformity Hypothyroid Surgical History Hx of tonsillectomy H/O foot surgery Peripheral vascular disease Family History Mother Breast cancer in situ Son Thyroid cancer Social History Housing: House Alcohol intake: current Alcohol intake frequency: a few times a month Comment: once a week 1-2 beers Patient Tobacco Use Status: Never used Tobacco Tobacco use type: Cigarette e-Cigarette/Vaping Use: Never Used Second Hand Smoke Exposure: No service: No Current occupational status: employed Cognitive needs: No Hearing needs: No Vision needs: No Review of Systems Const Denies chills, Denies fatigue, Denies fever(s), Denies frequent falls, Denies weakness, Denies weight gain and Denies weight loss ENT Denies dizziness Card Denies chest pain, Denies leg edema, Denies lightheadedness, Denies palpitations, Denies dyspnea and Denies dyspnea on exertion Resp Denies cough, Denies dyspnea and Denies dyspnea on exertion GI Denies hematochezia Musc Denies abnormal gait, Denies muscle weakness, Denies numbness, Denies radiating pain into limb and Denies tingling Neuro Denies abnormal gait, Denies dizziness, Denies frequent falls, Denies numbness, Denies tingling and Denies weakness Endo Denies fatigue and Denies palpitations Physical Exam Vital Signs: Last Vital Signs Pulse 63 06/04/24 09:20 BP 124/62 06/04/24 09:20 BMI result Body Mass Index 34.4 Const General: comfortable and no acute distress Orientation/consciousness: patient oriented x3 HEENT Other: Unremarkable Head: Yes normal to inspection Neck Neck: Yes normal visual inspection Chest Chest palpation & inspection: normal inspection of the chest Resp Auscultation: clear to auscultation bilaterally Cardio Palpation: normal PMI Heart sounds: S1 normal heart sound present, S2 normal heart sound present, no gallops, no murmurs and no rubs GI Palpation (GI): Soft to palpation Back/Spine/Pelvis Other: unremarkable Skin General skin exam: no rashes or lesions noted Neuro General: patient oriented x3 Extrem General: Yes normal to inspection Psych Mental Status: mental status grossly normal Office Procedures EKG Details: EKG with atrial fibrillation at 63/Min; right bundle-branch block pattern; cannot exclude old inferior infarct. [id number], Complete Assessment & Plan Assessment & Plan (1) Persistent atrial fibrillation: Code(s): I48.19 - Other persistent atrial fibrillation Category: Medical Plan: Cardiac studies reviewed. In the initial EKG, atrial flutter with controlled rate at 94/Min. PVCs versus aberrant conduction. Echocardiogram with LVEF of 55-60%. No significant valvular findings. Myocardial perfusion imaging study with normal perfusion. In the Holter monitor, underlying rhythm is sinus. Atrial fibrillation burden is about 9%. No significant osiris arrhythmias. In the repeat Holter monitor, he is in atrial fibrillation throughout. We discussed about rate control as well as rhythm control. Considering his relatively young age, recommend rhythm control. Advised cardioversion and he is willing and we can do that next week. He has been on adequate anticoagulation. To avoid any postprocedure bradycardia, hold off on beta-blockers x 3 days before procedure. We discussed about that today. (2) Obstructive sleep apnea: Comment: Sleep study done 06/29/2023 showing moderately severe obstructive sleep apnea AHI 22 advised CPAP auto PAP mode 6-20 cm. Code(s): G47.33 - Obstructive sleep apnea (adult) (pediatric) Category: Medical Plan: Continue CPAP. Plan Discussion Notes During the visit, I discussed with the patient the persistent nature of his Atrial Fibrillation and recommended electrical cardioversion as a means to restore sinus rhythm, given the progression from a previous sporadic occurrence to a continuous one. We reviewed the necessity of withholding Metoprolol to reduce the risk of bradycardia during the procedure, while continuing Eliquis to manage thromboembolic risk. I stressed the importance of post-procedure care, including transportation due to anesthesia and temporary activity restrictions. Risks and benefits of the cardioversion were thoroughly explained, with the patient consenting to proceed. We also talked about the potential for post-procedure heart rate slowing and ensuring no doses of Metoprolol are taken close to the procedure. The patient is instructed to follow up if he experiences any exacerbations of symptoms or concerns. Patient was informed and verbally consented to the use of an ambient scribe for clinic note documentation during this visit. Patient Instructions: - Continue taking Eliquis twice a day as prescribed. - Do not take Metoprolol starting Monday and also avoid it on Monday, Monday, , and Monday morning before the procedure. - Arrange someone to take you home after the procedure. - Avoid any heavy physical activity over the weekend following the procedure. - If you notice new symptoms or concerns, contact the clinic immediately. Coding Level of Care Code Est Pt Level 4 (20412) Complex EM visit Add On G2211 Diagnoses Persistent atrial fibrillation I48.19 Obstructive sleep apnea G47.33 CPT Codes EKG - CPT: 11904-Azzgttitzzxlhmppm, Complete ([id number])
[2024-06-04 09:20] VITALS: BP 124/62; PULSE 63; BMI 34.4
== END 2024-06-04 10:17 | disposition home or self-care (01) ==
LOC: HO.HCS 09:16
PROVIDERS: PCP Internal Medicine; Visit Provider Internal Medicine
DX: I48.19 Other persistent atrial fibrillation (principal); G47.33 Obstructive sleep apnea (adult) (pediatric)
CPT/HCPCS: 93010; 99214

== ENCOUNTER → 2024-06-04 09:15 | Outpatient (BNVA) | payer OTHER, SELFPAY | PROVIDERS: PCP Internal Medicine; Visit Provider Internal Medicine | DX: I48.19 Other persistent atrial fibrillation (principal); G47.33 Obstructive sleep apnea (adult) (pediatric); Z79.01 Long term (current) use of anticoagulants; Z99.89 Dependence on other enabling machines and devices | CPT/HCPCS: 93005 ==

== ENCOUNTER 2024-06-14 08:15 | Day surgery (SDC) | payer OTHER, SELFPAY ==
--- NOTE | 2024-06-12 12:17 | HO.ANESPROP2 ---
HPI - Anesthesia Eval Consult details Narrative: 63yo M for Cardioversion Eliquis for afib PMFSH Active Problems Active Problems: All Active Problems Persistent atrial fibrillation (Acute) Paroxysmal atrial fibrillation (Acute) Obstructive sleep apnea (Acute) Atrial flutter (Acute) Atrial fibrillation (Acute) Ankle ulcer (Acute) Tinea pedis of both feet (Acute) Knee pain, left (Acute) GERD (gastroesophageal reflux disease) (Acute) Annual physical exam (Acute) Hypercholesterolemia (Acute) Obesity (BMI 30-39.9) (Acute) Peripheral vascular disease (Acute) Hypothyroid (Acute) Past Medical History Medical History (Updated 06/04/24 @ 10:37 by Ariel Blanco MD) Hypersomnia Tubular adenoma of colon Depression Hypercholesterolemia Obesity (BMI 30-39.9) Foot deformity Hypothyroid Family History Family History Mother Breast cancer in situ Son Thyroid cancer Surgical History Surgical History Hx of tonsillectomy H/O foot surgery Peripheral vascular disease Social History Social History Housing: House Alcohol intake: current Alcohol intake frequency: a few times a month Comment: once a week 1-2 beers Patient Tobacco Use Status: Never used Tobacco Tobacco use type: Cigarette e-Cigarette/Vaping Use: Never Used Second Hand Smoke Exposure: No service: No Current occupational status: employed Cognitive needs: No Hearing needs: No Vision needs: No Meds Allergies Allergy/AdvReac Type Severity Reaction Status Date / Time No Known Allergies Allergy Verified 05/23/24 08:45 Home Medications ?Medication ?Instructions ?Recorded ?Confirmed ?Last Taken ?Type acetaminophen 500 mg tablet 500 mg PO Q6H PRN 04/28/20 06/04/24 Unknown History cholecalciferol (vitamin D3) 50 50 mcg PO DAILY 04/28/20 06/04/24 Unknown History mcg (2,000 unit) capsule Exam Narrative Narrative: ECHO 2024 Conclusions: - Normal LV ejection fraction 55-60% with moderate asymmetric septal hypertrophy Assessment and Plan Assessment Anesthesia Assessment: Chart Reviewed
[2024-06-12 14:23] VITALS: BMI 34.3
[2024-06-14] VITALS (7 sets, daily range): BP systolic 118–137; BP diastolic 68–87; PULSE 88–99; RESP 14–20; TEMP 36.8–37.3; O2SAT 95–98
[2024-06-14] MEDS: Lactated Ringers 1,000 ML 100 ML IVCONT (08:32)
--- NOTE | 2024-06-14 09:58 | P.CONAN_ITS ---
[facility] Active Problems Active Problems: All Active Problems Persistent atrial fibrillation (Acute) Paroxysmal atrial fibrillation (Acute) Obstructive sleep apnea (Acute) Atrial flutter (Acute) Atrial fibrillation (Acute) Ankle ulcer (Acute) Tinea pedis of both feet (Acute) Knee pain, left (Acute) GERD (gastroesophageal reflux disease) (Acute) Annual physical exam (Acute) Hypercholesterolemia (Acute) Obesity (BMI 30-39.9) (Acute) Peripheral vascular disease (Acute) Hypothyroid (Acute) Past Medical History Medical History Hypersomnia Tubular adenoma of colon Depression Hypercholesterolemia Obesity (BMI 30-39.9) Foot deformity Hypothyroid Functional capacity: independent ambulation Family History Family History Mother Breast cancer in situ Son Thyroid cancer Family history of problems with anesthesia: No Surgical History Surgical History Hx of tonsillectomy H/O foot surgery Peripheral vascular disease History of Problems with Anesthesia: No Social History Social History Housing: House Are you a primary inpatient care manager rn to a significant other at home: No Do you presently have visiting nurse or other home services: No Alcohol intake: current Alcohol intake frequency: a few times a month Comment: once a week 1-2 [email or web address] Patient Tobacco Use Status: Never used Tobacco Tobacco use type: Cigarette e-Cigarette/Vaping Use: Never Used Second Hand Smoke Exposure: No Substance Use Frequency: Occasionally Have you been hit, kicked, punched, or otherwise hurt by someone within the past year? If so, by whom?: No Are you DNR?: No Advance Directives: No Advance Directives Information Provided: Yes Poor oral hygiene: No service: No Current occupational status: employed Cognitive needs: No Hearing needs: No Vision needs: No Meds Allergies Allergy/AdvReac Type Severity Reaction Status Date / Time No Known Allergies Allergy Verified 06/14/24 08:29 Active Medications: Current Medications Lactated Ringer's (Lr) 1,000 mls @ 100 mls/hr IVCONT .Q10H ONEL Last Admin: 06/14/24 08:32 Dose: 100 mls/hr Home Medications ?Medication ?Instructions ?Recorded ?Confirmed ?Last Taken ?Type acetaminophen 500 mg tablet 500 mg PO Q6H PRN Pain (Scale 04/28/20 06/14/24 Unknown History Score 1-3) cholecalciferol (vitamin D3) 50 50 mcg PO DAILY 04/28/20 06/14/24 Unknown History mcg (2,000 unit) capsule Exam Height,Weight and Vital Signs: Height 6 ft Weight 114.759 kg Last Vital Signs Temp 98.2 F 06/14/24 08:44 Pulse 95 06/14/24 08:44 Resp 18 06/14/24 08:44 BP 131/73 06/14/24 08:44 Pulse Ox 98 06/14/24 08:44 O2 Del Method Room Air 06/14/24 08:44 Airway Mallampati Class: III TM Dist: >3cm Neck ROM: Full Heart: irregular Lungs: CTA Assessment and Plan Assessment Anesthesia Assessment: Anesthesia Plan Discussed and Chart Reviewed Final Anesthetic Review Family History of Problems with Anesthesia: No History of Problems with Anesthesia: No NPO: Yes ASA Class: III Final Preanesthetic Review: Meds/Allgs Chart Reviewed, Consent Obtained/Reviewed and Anes Risks/Benef Reviewed Patient Risk: Intermediate Procedure Risk: Intermediate Anesthetic Plan Anesthetic Plan: GA Disposition: Standard PACU
--- NOTE | 2024-06-14 10:15 | MHC.SHP ---
Pre-Procedural Eval Section A - 24 Hr Update-Section A only Date of Service: 06/14/24 The patient is an INPATIENT: No Section B - Complete if H&P > 30 days Chief Complaint: Other persistent atrial fibrillation Allergies: Allergies Allergy/AdvReac Type Severity Reaction Status Date / Time No Known Allergies Allergy Verified 06/14/24 08:29 Plan I have reviewed the history and physical and performed a pertinent physical examination on my patient. No changes have occurred unless specified. Time Spent With Patient Time: Total time managing care of this patient today ____ minutes.
--- NOTE | 2024-06-14 10:15 | HO.CARDIVERS ---
Cardioversion Procedure Note Cardioversion Date of Procedure: 06/14/2024 Pre-Op Diagnosis: Atrial fibrillation Post-Op Diagnosis: Sinus rhythm Consent: Informed consent obtained. Procedure: After informed consent was obtained, patient was taken to the PACU. The patient was then positioned appropriately. The cardioversion pads were placed in anteroposterior position. Once under anesthesia, 120 joules of synchronized shock was administered. The rhythm converted from atrial fibrillation to sinus rhythm for few sec and then went back into atrial fibrillation. Subsequently, another shock administered with 150 joules synchronized. Then he converted to sinus rhythm and stayed in sinus rhythm. Complications: None. Impression: Successful cardioversion from atrial fibrillation to sinus rhythm. Recommendations: Continue amiodarone. Follow up in clinic.
--- NOTE | 2024-06-14 10:26 | ECG_ITS ---
Test Reason : S/P CARDIOVERSION Blood Pressure : */* mmHG Vent. Rate : 90 BPM Atrial Rate : 90 BPM P-R Int : 240 ms QRS Dur : 138 ms QT Int : 410 ms P-R-T Axes : 24 157 12 degrees QTcB Int : 501 ms Sinus rhythm with 1st degree A-V block Possible Left atrial enlargement Right bundle branch block Abnormal ECG When compared with ECG of 12-Jul-2023 12:25, GA interval has increased Referred By: Jennifer Ruiz Electronically Signed By: JENNIFER RUIZ
[2024-06-14] MEDS: Amiodarone HCL 200 MG TABLET 400 MG PO (10:38)
[2024-06-14] MEDS: Metoprolol Succinate ER 50 MG TAB.ER.24H PO (10:40)
== END 2024-06-14 12:30 | disposition home or self-care (01) ==
PROVIDERS: PCP Internal Medicine; Visit Provider Internal Medicine
PROC: 5A2204Z Restoration of Cardiac Rhythm, Single (ICD-10-PCS; principal; 2024-06-14 10:10)
DX: I48.19 Other persistent atrial fibrillation (principal); E78.00 Pure hypercholesterolemia, unspecified; E03.9 Hypothyroidism, unspecified; G47.10 Hypersomnia, unspecified; G47.33 Obstructive sleep apnea (adult) (pediatric); E66.9 Obesity, unspecified; Z99.89 Dependence on other enabling machines and devices; Z79.01 Long term (current) use of anticoagulants; Z79.899 Other long term (current) drug therapy; Z68.34 Body mass index [BMI] 34.0-34.9, adult; Z98.890 Other specified postprocedural states
CPT/HCPCS: 92960; 93005; J2003; J2704

== ENCOUNTER → 2024-06-14 08:15 | Outpatient (BNV) | payer OTHER, SELFPAY | PROVIDERS: PCP Internal Medicine; Visit Provider Internal Medicine | DX: I48.19 Other persistent atrial fibrillation (principal); I45.19 Other right bundle-branch block; R94.31 Abnormal electrocardiogram [ECG] [EKG] | CPT/HCPCS: 93010 ==

== ENCOUNTER → 2024-06-24 08:35 | Outpatient (REF) | payer OTHER, SELFPAY ==
--- OUTSIDE RECORDS SUMMARY | 2024-06-24 08:43 | XMS_ITS | Continuity of Care Document ---
Author Organization [facility] Address [address] [place] [address] Phone Care Team Providers Care Bpm Developer Name Role Phone Jimbo PEREZ, RVT, TANG, [...] Providers Copied on Encounter [facility], [address], [id number], [place] tel:[phone] [facility] - [place] - [place] No Information 5 Jimbo PEREZ, RVT, TANG Perla. [address], [address], [place], [place], [id number] , [place]. [phone] Office/Outpt E&M Established 15 Mins [facility], [address] [place] [address] Dr [address] [place], [id number], [place] tel:[phone] [facility] - [facility] Chronic venous htn w ulcer and inflam of bilateral low extrm 3 Derrick PEREZ FACS RVT TANG Romero. [address] [place] [address], Suite [facility], [place], [address], [place]. tel:[phone] Referring Provider: Jess Turner MD, [address] [place] [address] [place], [address]. tel:[phone] [place] [facility], [address] [place] [address] Dr [address], [id number], [place] tel:[phone] [facility] - [facility] Encntr for f/u exam aft trtmt for cond oth than malig neoplmVenous insufficiency (chronic) (peripheral) 3 Derrick PEREZ FACS RVT TANG Romero. [facility] [facility], [address] [facility], [place], [address], [place]. tel:[phone] Referring Provider: Jess Turner MD, [address] [facility] [place], [address]. tel:[phone] [place] [facility], [address] [place] [address] [address] [place], [id number], [place] tel:[phone] [facility] - [facility] Venous insufficiency (chronic) (peripheral) 3 Derrick PEREZ FACS RVT TANG Romero. [address], [address], [place], [address], [place]. tel:[phone] Referring Provider: Jess Turner MD, [address] [facility] [place], [address]. tel:[phone] [place] [facility], [address] [place] [address] [address] [place], [id number], [place] tel:[phone] [facility] - [facility] No Information 3 Derrick PEREZ FACS RVT RPRONNI [facility] Nick. [address] [facility], [address] [facility], [place], [address], [place]. [phone] Referring Provider: Jess Turner MD, [address] [place] [address] [place], [address]. tel:[phone] Office/Outpt E&M Established 15 Mins [facility], [address] [place] [address] [address] [place], [id number], [place] tel:[phone] [facility] - [facility] Chronic venous htn w inflammation of bilateral low extrm 3 Derrick PEREZ FACS T TANG [facility] Nick. [address] [facility], [address] [facility], [place], [address], [place]. [phone] Referring Provider: Jess Turner MD, [address] [place] [address] [place], [address]. tel:[phone] [facility], [address] [place] [address] [address] [place], [id number], [place] tel:[phone] CV[facility] - [facility] Venous insufficiency (chronic) (peripheral)Pa in in right legPain in left leg 3 Derrick PEREZ FACS RVT TANG [facility] Nick. [address] [facility], [address] [facility], [place], [address], [place]. [phone] Referring Provider: Jess Turner MD, [address] [facility] [place], [address]. tel:[phone] [facility], [address] [place] [address] [address] [place], [id number], [place] tel:[phone] [facility] No Information May- 3 Derrick PEREZ FACS David Romero. [address] [address], [place], [address], [place]. tel:[phone] Referring Provider: Jess Turner MD, [address] [place] [address] Dr [address] [facility] [place], [address]. tel:[phone] Office/Outpt E&M Established 15 Mins [facility], [address], [place], [id number], [place] tel:[phone] [facility] Body mass index (BMI) 33.0-33.9, adultChronic venous htn w ulcer and inflam of bilateral low extrm 3 Der[facility] Romero. [address], [address] [address], [place], [address], [place]. tel:[phone] Referring Provider: Jess Turner MD, [address] [place] [address] Dr [address] [facility] [place], [address]. tel:[phone] Family History Family Member Type Diagnosis Age [...]
--- OUTSIDE RECORDS SUMMARY | 2024-06-24 08:43 | XMS_ITS | Patient Health Record ---
Author Organization [facility] Address [address] [place] [address] Care Team Providers Care Emergency Technician Name Role Phone Jess Turner Primary Care Provider Enrique gomez Miriam Katz Unavailable [phone] Allergies No Known Allergies Reason For Referral No Information Medications Medication SIG (Take, Route, Frequency, Duration) Notes Start Date End Date Status Eliquis 5 MG as directed Orally Active Acetaminophen 500 MG 1 capsule as needed Orally every 6 hrs Active Vitamin D 50 MCG (1999 UT) 1 tablet Orally Once a day for 30 day(s) Active Ciclopirox Olamine 0.77 % 1 application Externally Twice a day for 30 days Active Levothyroxine Sodium 137 MCG 1 tablet in the morning on an empty stomach Orally Once a day Active Lovastatin 20 MG 1 tablet with the evening meal Orally Once a day for 30 day(s) Active Ciclopirox Olamine 0.77 % 1 application Externally Twice a day for 30 days 12/23/2019 Not-Taking Famotidine 20 MG 1 tablet at bedtime as needed Orally Once a day Active Amiodarone HCl 200 MG TAKE 1 TABLET BY M OUTH DAILY. START IN 2 WEEKS - AFTER 400 MG 2 TIMES DAILY IS COMPLETED Oral for 30 Days Active Jania PRN Not-Taking Metoprolol Succinate 50 MG 1 capsule Orally Once a day Active Immunizations Vaccine Route Administration Date Status Comme nts COVID-19 Jeevan & Jeevan/Gi Unknown 12/07/2020 Administered 1st 05/16/20 Booster p-zer 12/07/20 Social History Tobacco Use: Social History Observation Description Date Details (start date - stop date) Never Smoker NA - NA Tobacco Use/Smoking Question Answer Notes Are you a: nonsmoker Additional Findings: Tobacco Non-User Current no n-smoker Alcohol Screen Question Answer Notes Did you have a drink contain ing alcohol in the past year? Yes How often did you have a dri nk containing alcohol in the past year? 2 to 4 times a month (2 points) Points 2 Interpretation Negative Tobacco use other than smoking: Question Answer Notes Are you an other tobacco user? No Problems Problem Type SNOMED Code ICD Code Onset Dates Problem Status W/U Status Risk Notes Problem Plantar wart (84793560) Plantar wart (B07.0) Active confirmed Problem Atherosclerosis of [place] arteries of the extremities (643416176561440) Unspecified atherosclerosis of [place] arteries of extremities, bilateral legs (I70.203) Active confirmed Vital Signs Blood pressure diastolic 80 mm Hg 06/17/2024 Height 6ft in 06/17/2024 Blood pressure systolic 122 mm Hg 06/17/2024 Weight 250 lbs 06/17/2024 BMI 33.9 kg/m2 06/17/2024 Procedures Procedure Date Ordered Date Performed Result Body Sit e 58866-EJQJCAU NAIL, 6 OR MORE 09/04/2023 N/A 01696-Jbqs Destruction, 1-09/04/2023 N/A 97762-DPDP SKIN LESIONS, OVER 4 09/04/2023 N/A 28362-LNZIOUA NAIL, 6 OR MORE 12/11/2023 N/A 25246-Vlbc Destruction, 1-14 12/11/2023 N/A 34032-Lafmnobk Plate 12/11/2023 N/A 86527-HQIG SKIN LESIONS, OVER 4 12/11/2023 N/A 58078-OPSBYEZ NAIL, 6 OR MORE 03/18/2024 N/A 68543-Ifdl Destruction, 1-14 03/18/2024 N/A 57518-LNGJ SKIN LESIONS, OVER 4 03/18/2024 N/A 51281-XSLDSRS NAIL, 6 OR MORE 06/17/2024 N/A 42767-Hnwc Destruction, 1-14 06/17/2024 N/A 96111-BKQJ SKIN LESIONS, OVER 4 06/17/2024 N/A Encounters Encounter Location Date Provider Diagnosis [facility] [address] [place] [address] 09/04/2023 Miriam Black Unspecified atherosclerosis of [place] arteries of extremities, bilateral legs I70.203 ; Bursitis of intermetatarsal bursa of left foot M77.52 ; Tinea unguium B35.1 ; Pain in right toe(s) M79.674 ; Pain in left toe(s) M79.675 ; Plantar wart B07.0 ; Pain in right foot M79.671 ; Plantar flexed metatarsal bone of right foot M21.6X1 ; Plantar flexed metatarsal bone of left foot M21.6X2 and Bursitis of intermetatarsal bursa of right foot M77.[address] [address] 12/11/2023 Miriam Black Unspecified atherosclerosis of [place] arteries of extremities, bilateral legs I70.203 ; Bursitis of intermetatarsal bursa of left foot M77.52 ; Tinea unguium B35.1 ; Pain in right toe(s) M79.674 ; Pain in left toe(s) M79.675 ; Plantar wart B07.0 ; Pain in right foot M79.671 ; Plantar flexed metatarsal bone of right foot M21.6X1 ; Plantar flexed metatarsal bone of left foot M21.6X2 ; Bursitis of intermetatarsal bursa of right foot M77.51 ; Ingrown nail L60.0 and Metatarsalgia, left foot M77.[address] [address] 03/18/2024 Miriam Black Unspecified atherosclerosis of [place] arteries of extremities, bilateral legs I70.203 ; Tinea unguium B35.1 ; Pain in right toe(s) M79.674 ; Pain in left toe(s) M79.675 ; Plantar wart B07.0 ; Pain in right foot M79.671 and Dermatitis L30.[address] [address] 06/17/2024 Miriam Black Unspecified atherosclerosis of [place] arteries of extremities, bilateral legs I70.203 ; Tinea unguium B35.1 ; Pain in right toe(s) M79.674 ; Pain in left toe(s) M79.675 ; Plantar wart B07.0 ; Pain in right foot M79.671 ; Pain in left foot M79.672 ; Pain in left ankle and joints of left foot M25.572 ; Bursitis of intermetatarsal bursa of left foot M77.52 ; Metatarsalgia of left foot M77.42 ; Pain in right ankle and joints of right foot M25.571 ; Bursitis of intermetatarsal bursa of right foot M77.51 and Metatarsalgia, right foot M77.41 [facility] [address] [place] [address] 06/18/2024 Miriam Katz Assessments Encounter Date Diagnosis (ICD Code) Assessment Notes Treatment Notes Treatment Clinical Notes Section Notes 09/04/2023 Unspecified atherosclerosis of [place] arteries of extremities, bilateral legs (ICD-10 - I70.203) 09/04/2023 Bursitis of intermetatarsal bursa of left foot (ICD-10 - M77.52) 12/11/2023 Unspecified atherosclerosis of [place] arteries of extremities, bilateral legs (ICD-10 - I70.203) 12/11/2023 Bursitis of intermetatarsal bursa of left foot (ICD-10 - M77.52) 03/18/2024 Tinea unguium (ICD-10 - B35.1) 03/18/2024 Unspecified atherosclerosis of [place] arteries of extremities, bilateral legs (ICD-10 - I70.203) 06/17/2024 Tinea unguium (ICD-10 - B35.1) 06/17/2024 Unspecified atherosclerosis of [place] arteries of extremities, bilateral legs (ICD-10 - I70.203) 06/17/2024 Pain in right toe(s) (ICD-10 - M79.674) 03/18/2024 Pain in right toe(s) (ICD-10 - M79.674) 12/11/2023 Tinea unguium (ICD-10 - B35.1) 09/04/2023 Tinea unguium (ICD-10 - B35.1) 09/04/2023 Pain in right toe(s) (ICD-10 - M79.674) 12/11/2023 Pain in right toe(s) (ICD-10 - M79.674) 03/18/2024 Pain in left toe(s) (ICD-10 - M79.675) 06/17/2024 Pain in left toe(s) (ICD-10 - M79.675) 03/18/2024 Plantar wart (ICD-10 - B07.0) 06/17/2024 Plantar wart (ICD-10 - B07.0) 12/11/2023 Pain in left toe(s) (ICD-10 - M79.675) 09/04/2023 Pain in left toe(s) (ICD-10 - M79.675) 09/04/2023 Plantar wart (ICD-10 - B07.0) 12/11/2023 Plantar wart (ICD-10 - B07.0) 03/18/2024 Pain in right foot (ICD-10 - M79.671) 06/17/2024 Pain in right foot (ICD-10 - M79.671) 03/18/2024 Dermatitis (ICD-10 - L30.9) 06/17/2024 Pain in left foot (ICD-10 - M79.672) 12/11/2023 Pain in right foot (ICD-10 - M79.671) 09/04/2023 Pain in right foot (ICD-10 - M79.671) 09/04/2023 Plantar flexed metatarsal bone of right foot (ICD-10 - M21.6X1) 12/11/2023 Plantar flexed metatarsal bone of right foot (ICD-10 - M21.6X1) 06/17/2024 Pain in left ankle and joints of left foot (ICD-10 - M25.572) 06/17/2024 Bursitis of intermetatarsal bursa of left foot (ICD-10 - M77.52) 12/11/2023 Plantar flexed metatarsal bone of left foot (ICD-10 - M21.6X2) 09/04/2023 Plantar flexed metatarsal bone of left foot (ICD-10 - M21.6X2) 09/04/2023 Bursitis of intermetatarsal bursa of right foot (ICD-10 - M77.51) 12/11/2023 Bursitis of intermetatarsal bursa of right foot (ICD-10 - M77.51) 06/17/2024 Metatarsalgia of left foot (ICD-10 - M77.42) 06/17/2024 Pain in right ankle and joints of right foot (ICD-10 - M25.571) 12/11/2023 Ingrown nail (ICD-10 - L60.0) 12/11/2023 Metatarsalgia, left foot (ICD-10 - M77.42) 06/17/2024 Bursitis of intermetatarsal bursa of right foot (ICD-10 - M77.51) 06/17/2024 Metatarsalgia, right foot (ICD-10 - M77.41) Plan Of Treatment Pending Test Test Name Order Date 91444-EXPCOAO NAIL, 6 OR MORE 12/23/2019 35936-QJXYIBR NAIL, 6 OR MORE 03/30/2020 84820-WGKIBVZ NAIL, 6 OR MORE 06/29/2020 82956-XOMNJJX NAIL, 6 OR MORE 09/07/2020 32601-BPRDKDW NAIL, 6 OR MORE 12/14/2020 57712-MRKPCJE NAIL, 6 OR MORE 04/05/2021 07691-LJIWCHZ NAIL, 6 OR MORE 07/15/2021 54155-REWJXNZ NAIL, 6 OR MORE 10/21/2021 53829-MZNKDJG NAIL, 6 OR MORE 04/25/2022 42100-SJRNKIS NAIL, 6 OR MORE 07/25/2022 84846-XHCXOYZ NAIL, 6 OR MORE 10/24/2022 48969-EMZSRYY NAIL, 6 OR MORE 02/13/2023 45037-QNYWOLS NAIL, 6 OR MORE 05/22/2023 21290-UBDDEIO NAIL, 6 OR MORE 09/04/2023 42097-XCMDSTK NAIL, 6 OR MORE 12/11/2023 96486-IEUTMWZ NAIL, 6 OR MORE 03/18/2024 57258-GEOGQNF NAIL, 6 OR MORE 06/17/2024 57146-Tutl Destruction, 1-14 06/17/2024 76725-Lswf Destruction, 1-14 12/11/2023 79614-Esij Destruction, 1-14 03/18/2024 61875-Jlli Destruction, 1-14 05/22/2023 99066-Kqch Destruction, 1-14 09/04/2023 22858-Ckwn Destruction, 1-14 02/13/2023 64920-Lnud Destruction, 1-14 07/25/2022 66076-Ijmd Destruction, 1-14 10/24/2022 82466-Iiwauzee Plate 04/25/2022 90020-Mcnybdmo Plate 07/15/2021 34443-Jlrltnzi Plate 12/11/2023 78721-Iangqell Plate Each Additional 12914-URIO SKIN LESIONS, OVER 4 10/22/19 25505-IUHP SKIN LESIONS, OVER 4 07/16/19 88574-GKHQ SKIN LESIONS, OVER 4 04/26/19 23 29136-GZJJ SKIN LESIONS, OVER 4 07/26/19 23 16207-LTAU SKIN LESIONS, OVER 4 10/25/19 23 16612-ZKYC SKIN LESIONS, OVER 4 02/13/19 24 12784-BOPY SKIN LESIONS, OVER 4 05/22/19 24 19422-LTRU SKIN LESIONS, OVER 4 09/04/19 24 98657-HXFI SKIN LESIONS, OVER 4 12/11/19 24 66466-RNEB SKIN LESIONS, OVER 4 03/18/19 25 54453-WRGF SKIN LESIONS, OVER 4 06/18/19 25 60710-FJHR SKIN LESIONS, 2 TO 4 12/23/19 20 41763-BYON SKIN LESIONS, 2 TO 4 04/05/19 22 45021-QLGZ SKIN LESIONS, 2 TO 4 12/15/19 21 42733-ZZHQ SKIN LESIONS, 2 TO 4 09/08/19 21 29918-WZBY SKIN LESIONS, 2 TO 4 06/30/19 21 21558-KPDL SKIN LESIONS, 2 TO 4 03/30/19 21 Next Appt Details Provider Name:Miriam Brown Sterling , 09/23/2024 11:00:00 AM, [address] [facility], [place], [address], Insurance Providers Payer Name Payer Address Payer Phone Subscriber Number Group Number Insured Name Patient Relationship to Insured Coverage Start Date Coverage End Date [facility] [address] [place] [phone] [id number] Louie Doug Self - patient is the insured Medical (General) History Medical History History ICD Code Hypothyroidism Peripheral vascular disease Foot Deformity Hypercholesterolemia Depression ulcer Poor circulation thyroid Measles Chicken pox Dr. Meza for Veins [facility] Wound Care lymphatic pump for legs A fib Surgical History Surgery Date(Month/Year) foot surgery 1974 tonsillectomy leg surgery 2016 colon 2014 Tubular adenoma 2019 laset EVLT phlebectomy 2018 vein surgery right leg 2023 Cardioversion 06/30 Hospitalization History Reason Date(Month/Year) [facility] ER- AFib 05/04/23
--- OUTSIDE RECORDS SUMMARY | 2024-06-24 08:43 | XMS_ITS ---
Author Organization [facility] Address [address] [place] [address] Care Team Providers Care [employer] Supervisor Name Role Phone Jess Turner Primary Care Provider Unavaillucy e Black, Miriam Unavailable [phone] Allergies No Known Allergies REASON FOR VISIT At Risk Footcare, Painful Nail(s) aggrevated by shoes and causing difficulty standing/walking., Wart(s), Foot pain Medications Medication SIG (Take, Route, Frequency, Duration) Notes Start Date End Date Status Acetaminophen 500 MG 1 capsule as needed [...] Once a day for 30 day(s) Active Eliquis 5 MG as directed Orally Active Ciclopirox Olamine 0.77 % 1 application Externally Twice a day for 30 days 12/23/2019 Not-Taking Famotidine 20 MG 1 tablet at bedtime as needed Orally Once a day Active Jania PRN Not-Taking Metoprolol Succinate 50 MG 1 capsule Orally Once a day Active Amiodarone HCl 200 MG TAKE 1 TABLET BY M OUTH DAILY. START IN 2 WEEKS - AFTER 400 MG 2 TIMES DAILY IS COMPLETED Oral for 30 Days Active Social History Tobacco Use: Social History Observation Description Date Details (start date - stop date) Never Smoker NA - NA Tobacco Use/Smoking Question Answer Notes Are you a: nonsmoker Additional Findings: Tobacco Non-User Current no n-smoker Tobacco use other than smoking: Question Answer Notes Are you an other tobacco user? No Vital Signs Height 6ft in 06/17/2024 Weight 250 lbs 06/17/2024 BMI 33.9 kg/m2 06/17/2024 Blood pressure systolic 122 mm Hg 06/18/19 25 Blood pressure diastolic 80 mm Hg 025 Procedures Procedure Date Ordered Date Performed Result Body Sit e 20335-CUZNDTB NAIL, 6 OR MORE 06/17/2024 N/A 40776-Vgot Destruction, 1-14 06/17/2024 N/A 38981-KIAD SKIN LESIONS, OVER 4 06/17/2024 N/A Encounters Encounter Location Date Provider Diagnosis [facility] [address] [place] [address] 06/17/2024 Miriam Black Unspecified atherosclerosis of [place] arteries of extremities, bilateral legs I70.203 ; [...] foot M77.51 and Metatarsalgia, right foot M77.41 Assessments Encounter Date Diagnosis (ICD Code) Assessment Notes Treatment Notes Treatment Clinical Notes Section Notes 06/17/2024 Unspecified atherosclerosis of [place] arteries of extremities, bilateral legs (ICD-10 - I70.203) 06/17/2024 Tinea unguium (ICD-10 - B35.1) 06/17/2024 Pain in right toe(s) (ICD-10 - M79.674) 06/17/2024 Pain in left toe(s) (ICD-10 - M79.675) 06/17/2024 Plantar wart (ICD-10 - B07.0) 06/17/2024 Pain in right foot (ICD-10 - M79.671) 06/17/2024 Pain in left foot (ICD-10 - M79.672) 06/17/2024 Pain in left ankle and joints of left foot (ICD-10 - M25.572) 06/17/2024 Bursitis of intermetatarsal bursa of left foot (ICD-10 - M77.52) 06/17/2024 Metatarsalgia of left foot (ICD-10 - M77.42) 06/17/2024 Pain in right ankle and joints of right foot (ICD-10 - M25.571) 06/17/2024 Bursitis of intermetatarsal bursa of right foot (ICD-10 - M77.51) 06/17/2024 Metatarsalgia, right foot (ICD-10 - M77.41) Plan Of Treatment Pending Test Test Name Order Date 58449-ESFMSGB NAIL, 6 OR MORE 06/17/2024 22542-Agsd Destruction, 1-14 06/17/2024 53909-AHTT SKIN LESIONS, OVER 4 06/18/19 25 Next Appt Details Follow Up: prn, Reason: Provider Name:Miriam Katz , 09/23/2024 11:00:00 AM, [address] [facility], [place], [address], Procedure Notes * Category Sub-Category Detail Notes Wart Treatment Procedure Verruca, as desc ribed in exam, were debrided to pin-point bleeding margins with sterile 15 surgical blade, silver nitrate chemocautery applied, recomm. immune-boosting meds such as zinc, recomm. follow up with topical chemosurgical agents, Pt defers any other forms of tx - 20443 Debride Nail 6-10 Nail debridement Due to the cl inical pathology outlined in the exam findings, performance of this nail treatment is medically necessary as its management by an unskilled/untrained nonprofessional would put this patients foot and overall health at risk. Therefore, debridement to affected nail(s), as described in exam ( TA, T1, T2, T3, T5, T6, T7, T8, T9, ), was performed exclusively by the physician of record to reduce/remove overall nail length, girth, thickness, subungual debris, and necrotic tissue, by manual and/or electrical means through the use of a nail nipper and/or dremel-type watch parts grinder, to a more viable healthy nail plate or bed tissue 6-10 nails in total. Silver nitrate was used for any petechial bleeding as necessary. Definitive antifungal treatment options, both pharmaceutical and surgical, have been reviewed and discussed with the patient. The patient solely prefers the use of intermittent/as needed professional debridement services for their nail condition and understands the need for additional periodic treatments to maintain effectiveness in symptomatic relief - 51523 Keratoma Treatment Parring or Cutting o f Benign Hyperkeratotic Lesion(s) (-57) More than 4 Lesions - Due to the at risk nature of the patients medical condition as documented in the exam findings, performance of this keratoderma treatment is medically necessary as its management by an unskilled/untrained nonprofessional would put this patients foot and overall health at risk. Therefore, the benign hyperkeratotic lesions, (5 ) in total, locations as stated and described in the exam ( SUB MTH (s), 3, 4, Left , 3,5 Right T4 ,), were pared, and/or cut utilizing a sterile 15 blade, tissue nippers, and/or power dremel instrumentation by the physician of record - 62862, Q8 Progress Notes * Doug FULTONDOB:[birth year] (63 yo M)Acc No.[id number]:06/17/2024 Progress Note Patient:?DONALDO Doug Mendoza Provider:?Miriam Katz DPM :1960???Age:63 Y???Sex:Male Brice e:06/17/2024 Address:[address] [place], [place] [id number] Pcp:Jess Turner Subjective: * Chief Complaints: * ???At Risk FootcarePainful N ail(s) aggrevated by shoes and causing difficulty standing/walking.Wart(s)Foot pain * HPI: ???At Risk footcare:?Pt States Last PCP Visit:?Date?06/04/2024 ???Foot Pain:?Location:?Bottom, Forefoot, B/L.?Duration:?, several weeks.?Course:?worse.?Treatments:?rest/alter normal daily activity, innersoles.? * ROS:?General/Constitutional:?Nausea?denies.?Vomiting?denies.?Hunger Thirst?denies.?Loss appetite?denies.?Chills?denies.?Fatigue?denies.?Fever?denies.?Night Sweats?denies.?Unexplained weight loss?denies.?Unexplained weight gain?denies.?HEENTM:?Dentures?denies.?Dizziness?denies.?Glasses/contacts?denies.?Retinopathy?de nies.?Blurred/double vision?denies.?TMJ?denies.?Discharge/drainage?denies.?Implants?denies.?Sore throat?denies.?Dental implants?denies.?Hard of hearing ?denies.?Difficulty chewing/swallowing/speaking?denies.?Nose bleeds?denies.?Sore mouth?denies.?Respiratory:?On Oxygen?denies.?Pneumonia/pleurisy?denies.?Bronchitis?denies.?Emphysema?denies.?C oughing?denies.?Cough blood?denies.?Shortness of breath?denies.?Wheezing?denies.?Cardiovascular:?Pacemaker?denies.?MVP?denies.?WPW?denies.?CHF?denies.?Heart attack?denies.?Septal defect?denies.?Rapid beat?denies.?Chest pain ?denies.?Atrial Fib.?denies.?Murmur/Palpitations?denies.?Gastrointestinal:?Hemorrhoids?denies.?Stomach/Abdominal pain?denies.?Dark blood stool?denies.?Irritable bowel ?denies.?Constipation?denies.?Diarrhea?denies.?Hematology:?Swelling?denies admits.?Clots?denies.?Varicose Veins?denies.?Bruising?denies.?Bleeding problem?denies.?Genitourinary:?Blood urine?denies.?Frequent/Painfu/urination/bladder control?denies.?Kidney stones?denies.?Infection (UTI)?denies.?Nephropathy?denies.?sex trans dis (STD)?denies.?Prostate?denies.?Musculoskeletal:?Hammertoes?admits.?Bunions?denies.?Back Pain?denies.?Muscle Cramps/ Resting?denies.?Muscle cramps / walking?denies.?Generalized aches and pains?denies admits.?Weakness?denies.?Integ.:?Yuen?denies.?Scars?denies.?Corns/calluses?denies.?Ingrown nails?denies.?Painful nails?admits.?Open Sores?denies admits.?Rashes?denies.?Neurologic:?Difficulty sleeping?denies admits.?Brain disorder?denies.?Numbness?denies.?Balance trouble?denies.?Confusion?denies.?Fainting/blackouts?denies.?Tingling?denies.?Tr emors?denies.? * Medical History:? * Surgical History:?foot surge ry 1974tonsillectomy leg surgery 2017colon 2014Tubular adenoma 2020laset EVLT phlebectomy 2018vein surgery right leg 2024Cardioversion 06/30 * Hospitalization/Major Diagno stic Procedure:?[facility]- AFib 05/04/23 * Family History:?Mother: deirdre gomez, diagnosed with Other malignant neoplasm of unspecified site, Unspecified essential hypertension, Other specified conditions influencing health status.?Father: , diagnosed with Diabetic - NIDDM, Unspecified essential hypertension.?Children: diagnosed with Other malignant neoplasm of unspecified site.? * Social History:?Tobacco Use:?Tobacco Use/Smoking?Are you a:?nonsmoker ?Additional Findings: Tobacco Non-User?Current non-smoker ?Tobacco use other than smoking?Are you an other tobacco user??No ???Miscellaneous:?Caffeine: yes, frequency:, 3-5 cups per day. ?Children: yes, two. ?Exercise: yes, walking. ?Marital status: single. ?Occupation: Works Full-time. * Medications:?TakingFamotidin e 20 MG Tablet 1 tablet at bedtime as needed Orally Once a day Metoprolol Succinate 50 MG Capsule ER 24 Hour Sprinkle 1 capsule Orally Once a day Eliquis 5 MG Tablet as directed Orally Acetaminophen 500 MG Capsule 1 capsule as needed Orally every 6 hrs Levothyroxine Sodium 137 MCG Tablet 1 tablet in the morning on an empty stomach Orally Once a day Lovastatin 20 MG Tablet 1 tablet with the evening meal Orally Once a day Vitamin D 50 MCG (2000 UT) Tablet 1 tablet Orally Once a day Ciclopirox Olamine 0.77 % Cream 1 application Externally Twice a day Amiodarone HCl 200 MG Tablet TAKE 1 TABLET BY MOUTH DAILY. START IN 2 WEEKS - AFTER 400 MG 2 TIMES DAILY IS COMPLETED Oral Taking Famotidine 20 MG Tablet 1 tablet at bedtime as needed Orally Once a day Taking Metoprolol Succinate 50 MG Capsule ER 24 Hour Sprinkle 1 capsule Orally Once a day Taking Eliquis 5 MG Tablet as directed Orally Taking Acetaminophen 500 MG Capsule 1 capsule as needed Orally every 6 hrs Taking Levothyroxine Sodium 137 MCG Tablet 1 tablet in the morning on an empty stomach Orally Once a day Taking Lovastatin 20 MG Tablet 1 tablet with the evening meal Orally Once a day Taking Vitamin D 50 MCG (2000 UT) Tablet 1 tablet Orally Once a day Taking Ciclopirox Olamine 0.77 % Cream 1 application Externally Twice a day Taking Amiodarone HCl 200 MG Tablet TAKE 1 TABLET BY MOUTH DAILY. START IN 2 WEEKS - AFTER 400 MG 2 TIMES DAILY IS COMPLETED Oral Not-Taking/PRNAllegra , Notes to Pharmacist: PRNCiclopirox Olamine 0.77 % Cream 1 application Externally Twice a day Medication List reviewed and reconciled with the patientNot-Taking/PRN Jania , Notes to Pharmacist: PRNNot-Taking/PRN Ciclopirox Olamine 0.77 % Cream 1 application Externally Twice a day Medication List reviewed and reconciled with the patient * Allergies:?N.K.D.A.yes[Aller gies Verified] Objective: * Vitals:?Ht: 6ft, Wt:250, BMI :33.9, Shoe size: 8.5, BP:122/80mm Hg, Ht-cm: 182.88 cm, Wt-k.4 kg. * Examination: ???General Examination: ?GENERAL APPEARANCE:?Reveals a pleasant, alert, well nourished, well- developed, well hydrated individual, who demonstrates proper attention to hygiene/body habitus, and is in no acute distress, Pt serves as own historian for office visit today.?ORIENTED:?person, place, and time.?Dermatologic: ?SKIN FINDINGS:?Skin exam reveals keratotic lesion(s) located at, SUB MTH (s), 3, 4, Left , 3,5 Right T4 , Unna boots b/l midfoot, Skin shows sign(s) of, crusting, erythema dorsal IPJ T5, dorsal 2,3,4 right.?VERRUCA:?Reveals a single? multi-loculated , mosaically patterned, round, raised, flat-topped, petechial bleeding papule(s), with cauliflower appearance and interruption of skin lines, pain to lateral compression, and size estimated at 2mm diameter , plantar Midfoot , RIGHT.?Nails: ?NAILS are:?Elongated, overgrown, dystrophic, lytic, greater than 3mm thick, discolored and friable with crumbly malodorous subungual debris, with pain on palpation,, TA, T1, T2, T3, T5, T6, T7, T8, T9.?Vascular: ???b/l Unna boots. ???Orthopedic: ?GAIT ABNORMALITY:?antalgic.?FOOT MORPHOLOGY:?, Pes Cavus structure, Rigid, B/L.?MPJ PATHOLOGY:?Pain, swelling, and inflammation to plantar ( 2-5 b/l?), MPJ(s), B/L , No MPJ pain with ROM , [ - ] Ecchymosis.?FOOTWEAR EVALUATION:?, good condition, OT were inspected and noted to be severely worn, in poor condition not giving proper support at the present time.?Neurological: ?TINEL'S COMPRESSION:? Negative tarsal tunnel, manuel pedis, and medial calcaneal nerves.?Neuroma Pain: ?PALPATION:?No interspace pain noted on palpation.? Assessment: * Assessment: 1.?Tinea unguium - B35.1???2 .?Unspecified atherosclerosis of [place] arteries of extremities, bilateral legs - I70.203 (Primary)???3.?Pain in right toe(s) - M79.674???4.?Pain in left toe(s) - M79.675???5.?Plantar wart - B07.0???6.?Pain in right foot - M79.671???7.?Pain in left foot - M79.672???8.?Pain in left ankle and joints of left foot - M25.572???9.?Bursitis of intermetatarsal bursa of left foot - M77.52???10.?Metatarsalgia of left foot - M77.42???Specify :Acute Problem, Uncomplicated (3)???11.?Pain in right ankle and joints of right foot - M25.571???12.?Bursitis of intermetatarsal bursa of right foot - M77.51???13.?Metatarsalgia, right foot - M77.41???Specify :?Acute Problem, Uncomplicated (3)??? Plan: * Treatment: 2.?Tinea unguium?Procedure: 35818-TGHMHNV NAIL, 6 OR MORE 3.?Plantar wart?Procedure: 16815-Rerm Destruction, 1-14 * Procedures:?Debride Nail 6-10:?Nail debridement?Due to the clinical pathology outlined in the exam findings, performance of this nail treatment is medically necessary as its management by an unskilled/untrained nonprofessional would put this patients foot and overall health at risk. Therefore, debridement to affected nail(s), as described in exam ( TA, T1, T2, T3, T5, T6, T7, T8, T9, ), was performed exclusively by the physician of record to reduce/remove overall nail length, girth, thickness, subungual debris, and necrotic tissue, by manual and/or electrical means through the use of a nail nipper and/or dremel-type watch parts grinder, to a more viable healthy nail plate or bed tissue 6- 10 nails in total. Silver nitrate was used for any petechial bleeding as necessary. Definitive antifungal treatment options, both pharmaceutical and surgical, have been reviewed and discussed with the patient. The patient solely prefers the use of intermittent/as needed professional debridement services for their nail condition and understands the need for additional periodic treatments to maintain effectiveness in symptomatic relief - 12039.?Keratoma Treatment:?Parring or Cutting of Benign Hyperkeratotic Lesion(s)?(-57) More than 4 Lesions - Due to the at risk nature of the patients medical condition as documented in the exam findings, performance of this keratoderma treatment is medically necessary as its management by an unskilled/untrained nonprofessional would put this patients foot and overall health at risk. Therefore, the benign hyperkeratotic lesions, (5 ) in total, locations as stated and described in the exam ( SUB MTH (s), 3, 4, Left , 3,5 Right T4 ,), were pared, and/or cut utilizing a sterile 15 blade, tissue nippers, and/or power dremel instrumentation by the physician of record - 49105, Q8.?Wart Treatment:?Procedure?Verruca, as described in exam, were debrided to pin-point bleeding margins with sterile 15 surgical blade, silver nitrate chemocautery applied, recomm. immune-boosting meds such as zinc, recomm. follow up with topical chemosurgical agents, Pt defers any other forms of tx - 18665.? * Procedure Codes:?90512 DEBRI DE NAIL, 6 OR MORE, Modifiers: XS 34775 Wart Destruction, 1-14, Modifiers: XS 10766 TRIM SKIN LESIONS, OVER 4, Modifiers: Q8 * Preventive Medicine:? ??Counseling:?Discussion:?-13: Office or other outpatient visit for the evaluation and management of an established patient, which required a medically appropriate history and/or examination and LOW level of DECISION MAKING for: 1 STABLE ACUTE UNCOMPLICATED PROBLEM, 2 OR MORE MINOR PROBLEMS, OR 1 STABLE CHRONIC PROBLEM, THAT POSE(S) A LOW RISK FOR MORBIDITY/MORTALITY. The visit on the day of the encounter encompassed interpreting the data and educating the patient as to the nature of their condition, treatment options available according to their individual PMH, meds, allergies, and overall health/living conditions, as well as any potential risks or complications that may occur from a failure to adhere to, and participate in, the recommended course of therapy. The discussion included a complete verbal, and/or written explanation of the examination results, any x-rays taken, the proposed diagnosis, and outline of the treatment plan. A schedule for future care needs was also explained. The patient verbalized an understanding of the instructions at this time and agreed to be an active participant in their treatment. If the patient should think of any questions or concerns after the visit, I have encouraged the patient to call the office.?Metatarsalgea:?I explained to the patient the possible etiologies of their Metatarsalgea Foot pain, including foot type/shoegear/activity level/exercise routine and the risks/benefits of all the different treatment options for pain including: No treatment at all, Rest, Ice, NSAIDs(only if well tolerated after meals), New/supportive Shoe gear, Strappings and Tapings, Foot/Ankle AFO Bracing, Stretching exercises, Deep Tissue Massage, Arch support/shoe inserts, Custom orthoses, Topical analgesics including Aspercream/Voltaren gel, Physical Therapy, Cortisone injection therapy, EPAT/ESWT. Advantages and disadvantages of each option were discussed and the patients questions re: shoe gear, custom vs prefabricated inserts, activity level, PO vs Topical medications (and their respective potential complications/drug interactions/side effects), and consistency in home treatment regimens for optimal success were answered to their verbally confirmed satisfaction- pts custom orthotics will be sent out for refurbishment.? ??Screening/Special Tests:?Fall Risk?Screening:?No falls in the past year ?FALLS: Screening for Future Fall Risk?Have you had any falls with injury in the past year??No * Follow Up:?prn * Images: * Sign off status: Completed true * Provider:?Miriam Katz DPM Date:?2024 Generated for Yousif torres/Linda/Renae on:?06/24/2024 08:43 AM EDT History and Physical Notes * HPI (History of Present Illness) Category Sub-Category Detail Notes Category Not es At Risk footcare Pt States Last PCP Visit: Date: 5 Foot Pain Location: Bottom, Forefoot, B/L Duration: , several weeks Course: worse Treatments: rest/alter normal da kvng activity, innersoles Examination Category Sub-Category Detail Notes Category Not es Neuroma Pain PALPATION: No interspace pa in noted on palpation Neurological TINEL'S COMPRESSION: Negative ta rsal tunnel, manuel pedis, and medial calcaneal nerves Dermatologic SKIN FINDINGS: Skin exam reveal s keratotic lesion(s) located at, SUB MTH (s), 3, 4, Left , 3,5 Right T4 , Unna boots b/l midfoot, Skin shows sign(s) of, crusting, erythema dorsal IPJ T5, dorsal 2,3,4 right VERRUCA: Reveals a single mul ti-loculated , mosaically patterned, round, raised, flat-topped, petechial bleeding papule(s), with cauliflower appearance and interruption of skin lines, pain to lateral compression, and size estimated at 2mm diameter , plantar Midfoot , RIGHT Orthopedic GAIT ABNORMALITY: antalgic FOOT MORPHOLOGY: , Pes Cavus structur e, Rigid, B/L FOOTWEAR EVALUATION: , good condition, O T were inspected and noted to be severely worn, in poor condition not giving proper support at the present time MPJ PATHOLOGY: Pain, swelling, and inflammation to plantar ( 2-5 b/l ), MPJ(s), B/L , No MPJ pain with ROM , [ - ] Ecchymosis General Examination GENERAL APPEARANCE: Reveals a pleasant, alert, well nourished, well-developed, well hydrated individual, who demonstrates proper attention to hygiene/body habitus, and is in no acute distress, Pt serves as own historian for office visit today ORIENTED: person, place, and t alley Vascular b/l Unna boots Nails NAILS are: Elongated, overg rown, dystrophic, lytic, greater than 3mm thick, discolored and friable with crumbly malodorous subungual debris, with pain on palpation,, TA, T1, T2, T3, T5, T6, T7, T8, T9
--- OUTSIDE RECORDS SUMMARY | 2024-06-24 08:44 | XMS_ITS ---
Author Organization [facility] Address [address] [place] [address] Care Team Providers Care Bag Inspector Name Role Phone Jess Turner Primary Care Provider Unavaillucy e Black, Miriam Unavailable [phone] Allergies No Known Allergies REASON FOR VISIT At Risk Footcare, Painful Nail(s) aggrevated by shoes and causing difficulty standing/walking., Wart(s) Medications Medication SIG (Take, Route, Frequency, Duration) Notes Start Date End Date Status Levothyroxine Sodium 137 MCG 1 tablet in the morning on an empty stomach Orally Once a day Active Eliquis 5 MG as directed Orally Active Acetaminophen 500 MG 1 capsule as needed Orally every 6 hrs Active Famotidine 20 MG 1 tablet at bedtime as needed Orally Once a day Active Metoprolol Succinate 50 MG 1 capsule Orally Once a day Active Lovastatin 20 MG 1 tablet with the evening meal Orally Once a day for 30 day(s) Active Vitamin D 50 MCG (2000 UT) 1 tablet Orally Once a day for 30 day(s) Active Ciclopirox Olamine 0.77 % 1 application Externally Twice a day for 30 days 12/23/2019 Not-Taking Ciclopirox Olamine 0.77 % 1 application Externally Twice a day for 30 days Active Jania PRN Not-Taking Social History Tobacco Use: Social History Observation Description Date Details (start date - stop date) Never Smoker NA - NA Tobacco Use/Smoking Question Answer Notes Are you a: nonsmoker Additional Findings: Tobacco Non-User Current no n-smoker Tobacco use other than smoking: Question Answer Notes Are you an other tobacco user? No Vital Signs Height 6ft in 03/18/2024 Weight 260 lbs 03/18/2024 BMI 35.26 kg/m2 03/18/2024 Blood pressure systolic 123 mm Hg 03/18/19 Blood pressure diastolic 80 mm Hg 025 Procedures Procedure Date Ordered Date Performed Result Body Sit e 85393-FYLNFEJ NAIL, 6 OR MORE 03/18/2024 N/A 87317-Zmzb Destruction, 1-14 03/18/2024 N/A 45679-WYNG SKIN LESIONS, OVER 4 03/18/2024 N/A Encounters Encounter Location Date Provider Diagnosis [facility] [address] [place] [address] 03/18/2024 Miriam Katz Unspecified atherosclerosis of [place] arteries of extremities, bilateral legs I70.203 ; Tinea unguium B35.1 ; Pain in right toe(s) M79.674 ; Pain in left toe(s) M79.675 ; Plantar wart B07.0 ; Pain in right foot M79.671 and Dermatitis L30.9 Assessments Encounter Date Diagnosis (ICD Code) Assessment Notes Treatment Notes Treatment Clinical Notes Section Notes 03/18/2024 Unspecified atherosclerosis of [place] arteries of extremities, bilateral legs (ICD-10 - I70.203) 03/18/2024 Tinea unguium (ICD-10 - B35.1) 03/18/2024 Pain in right toe(s) (ICD-10 - M79.674) 03/18/2024 Pain in left toe(s) (ICD-10 - M79.675) 03/18/2024 Plantar wart (ICD-10 - B07.0) 03/18/2024 Pain in right foot (ICD-10 - M79.671) 03/18/2024 Dermatitis (ICD-10 - L30.9) Plan Of Treatment Pending Test Test Name Order Date 14184-EQQCSEZ NAIL, 6 OR MORE 03/18/2024 43543-Dsyi Destruction, 1-14 03/18/2024 01741-PBHS SKIN LESIONS, OVER 4 03/18/19 25 Next Appt Details Follow Up: prn, Reason: Provider Name:Miriam Katz , 09/23/2024 11:00:00 AM, [address] [place], [address], Procedure Notes * Category Sub-Category Detail Notes Wart Treatment Procedure Verrucae were de brided to pin-point bleeding margins with sterile 15 surgical blade, silver nitrate chemocautery applied, recomm. immune-boosting meds such as zinc, recomm. follow up with topical chemosurgical agents, GIVEN CLINICAL IMPROVEMENT, Pt STILL, , defers any other forms of tx (56626) Debride Nail 6-10 Nail debridement Due to [...] use of a nail nipper and/or dremel-type sample grinder, to a more viable healthy nail [...] to maintain effectiveness in symptomatic relief - 14350 Keratoma Treatment Parring or Cutting o f [...] instrumentation by the physician of record - 78771, Q8 Progress Notes * Doug FULTON:[birth year] (63 yo M)Acc No.[id number]:03/18/2024 Progress Note Patient:?Doug FULTON Provider:?Miriam Katz DPM :1960???Age:63 Y???Sex:Male Brice e:03/18/2024 Address:[address] [place] [address] Pcp:Jess Turner Subjective: * Chief Complaints: * ???At Risk FootcarePainful N ail(s) aggrevated by shoes and causing difficulty standing/walking.Wart(s) * HPI: ???At Risk footcare:?Pt States Last PCP Visit:?Date?11/22/2023 ???Skin problems:?Pt States PCP Visit: ?DATE?11/22/2023 ?Location:?, Right, Forefoot.?Duration:?several days.?Onset/Cause:?sudden.?Treatments:?none.? * ROS:?General/Constitutional:?Nausea?denies.?Vomiting?denies.?Hunger Thirst?denies.?Loss appetite?denies.?Chills?denies.?Fatigue?denies.?Fever?denies.?Night Sweats?denies.?Unexplained weight loss?denies.?Unexplained [...] 2020laset EVLT phlebectomy 2018vein surgery right leg 2023 * Hospitalization/Major Diagno stic Procedure:?[facility]- AFib 05/04/23 * Family History:?Mother: deirdre e, diagnosed with Other specified conditions influencing health status, Unspecified essential hypertension, Other malignant neoplasm of unspecified site.?Father: , diagnosed with Diabetic - NIDDM, Unspecified [...] 1 application Externally Twice a day Taking Famotidine 20 MG Tablet 1 tablet [...] Cream 1 application Externally Twice a day Not-Taking/PRNAllegra , Notes to Pharmacist: PRNCiclopirox Olamine 0.77 % Cream 1 application Externally Twice a day Medication List reviewed and reconciled with the patientNot-Taking/PRN Jania , Notes to Pharmacist: PRNNot-Taking/PRN Ciclopirox Olamine 0.77 % Cream 1 application Externally Twice a day Medication List reviewed and reconciled with the patient * Allergies:?N.K.D.A.yes[Aller gies Verified] Objective: * Vitals:?Ht: 6ft, Wt:260, BMI :35.26, Shoe size: 8.5, BP:123/80mm Hg, Ht-cm: 182.88 cm, Wt-k.94 kg. * Examination: ???General Examination: ?GENERAL APPEARANCE:?Reveals [...] dorsal IPJ T5, dorsal 2,3,4 right.?VERRUCA:?Reveals a two? multi-loculated , mosaically patterned, round, raised, flat-topped, petechial bleeding papule(s), with cauliflower appearance and interruption of skin lines, pain to lateral compression, and size estimated at 1-2mm diameter , plantar Midfoot , RIGHT.?Nails: ?NAILS are:?Elongated, overgrown, dystrophic, lytic, greater than 3mm thick, discolored and friable with crumbly malodorous subungual debris, with pain on palpation,, TA, T1, T2, T3, T5, T6, T7, T8, T9.?Vascular: ???b/l Unna boots. Assessment: * Assessment: 1.?Tinea unguium - B35.1???2 .?Unspecified atherosclerosis of [place] arteries of extremities, bilateral legs - I70.203 (Primary)???3.?Pain in right toe(s) - M79.674???4.?Pain in left toe(s) - M79.675???5.?Plantar wart - B07.0???6.?Pain in right foot - M79.671???7.?Dermatitis - L30.9???Specify :Acute problem, Uncomplicated (3)??? Plan: * Treatment: 2.?Tinea unguium?Procedure: 69283-HWOZDIW NAIL, 6 OR MORE 3.?Plantar wart?Procedure: 84066-Edsk Destruction, 1-14 * Procedures:?Debride Nail 6-10:?Nail debridement?Due [...] use of a nail nipper and/or dremel-type sample grinder, to a more viable healthy nail [...] to maintain effectiveness in symptomatic relief - 07723.?Keratoma Treatment:?Parring or Cutting of Benign Hyperkeratotic Lesion(s)?(-57) [...] instrumentation by the physician of record - 05201, Q8.?Wart Treatment:?Procedure?Verrucae were debrided to pin-point bleeding margins with sterile 15 surgical blade, silver nitrate chemocautery applied, recomm. immune-boosting meds such as zinc, recomm. follow up with topical chemosurgical agents, GIVEN CLINICAL IMPROVEMENT, Pt STILL, , defers any other forms of tx (66606).? * Procedure Codes:?16066 DEBRI DE NAIL, 6 OR MORE, Modifiers: XS 26808 Wart Destruction, 1-14, Modifiers: XS 39709 TRIM SKIN LESIONS, OVER 4, Modifiers: Q8 [...] have encouraged the patient to call the office.?Dermatitis:?The patient was counseled on the diagnosis, potential etiologies, and treatment options for their skin condition. We discussed the risks and benefits of each option from performing no treatment, to utilizing OTC topical skin creams/ointments, to utilizing prescription topical creams/ointments, to utilizing customized compounded topical medications and use of nocturnal occlusion with any/all previously detailed therapies. We discussed the advantages and disadvantages of each possible treatment and importance for adherence to all the recommended therapies for optimum success and avoid potential complications such as open sore/infection/possible hospitalization. We discussed the potential effectiveness of each topical preparation as well as each ones possible side effects and/or patient medication interactions. Patient questions re: use, dosage, successful outcomes, and application consistency were reviewed and the patient verbalized that all answers were clearly understood..? ??Screening/Special Tests:?Fall Risk?Screening:?No falls in the past year ?FALLS: Screening for Future Fall Risk?Have you had any falls with injury in the past year??No * Follow Up:?prn * Images: * Sign off status: Completed true * Provider:?Miiram Katz DPM Date:?2024 Generated for Yousif torres/Linda/Renae on:?06/24/2024 08:43 AM EDT History and Physical Notes * HPI (History of Present Illness) Category Sub-Category Detail Notes Category Not es Skin problems Location: , Right, Forefoot Duration: several days Onset/Cause: sudden Treatments: none Pt States PCP Visit: DATE: 11/22/2023 At Risk footcare Pt States Last PCP Visit: Date: 4 Examination Category Sub-Category Detail Notes Category Not es Dermatologic SKIN FINDINGS: Skin exam reveal s keratotic lesion(s) located at, SUB MTH (s), 3, 4, Left , 3,5 Right T4 , Unna boots b/l midfoot, Skin shows sign(s) of, crusting, erythema dorsal IPJ T5, dorsal 2,3,4 right VERRUCA: Reveals a two multi- loculated , mosaically patterned, round, raised, flat-topped, petechial bleeding papule(s), with cauliflower appearance and interruption of skin lines, pain to lateral compression, and size estimated at 1-2mm diameter , plantar Midfoot , RIGHT General Examination GENERAL APPEARANCE: Reveals a pleasant, [...]
--- OUTSIDE RECORDS SUMMARY | 2024-06-24 08:44 | XMS_ITS ---
Author Organization [facility] Address [address] [place] [address] Care Team Providers Care Biztalk Developer Name Role Phone Jess Turner Primary Care Provider Miriam Chowdhury [phone] REASON FOR VISIT DPM refurbs Encounters Encounter Location Date Provider Diagnosis [facility] [address] [place] [address] 06/18/2024 Miriam Katz Plan Of Treatment Next Appt Details Provider Name:Miriam Katz , 09/23/2024 11:00:00 AM, [address] [place], [address], Progress Notes * Doug FULTONDOB:[birth year] (63 yo M)Acc No.[id number]:06/18/2024 Patient:?Doug FULTON :1960???Age:63 Y???Sex:Male Address:[address] [place], [address] * * Date:?
== END ==
LOC: HO.CARD 08:35
PROVIDERS: PCP Internal Medicine; Visit Provider Internal Medicine
DX: I48.19 Other persistent atrial fibrillation (principal)
CPT/HCPCS: 93242

== ENCOUNTER → 2024-06-24 08:38 | Outpatient (BNV) | payer OTHER, SELFPAY | PROVIDERS: PCP Internal Medicine; Visit Provider Internal Medicine Cardiovascular Disease | DX: I49.1 Atrial premature depolarization (principal); I49.3 Ventricular premature depolarization | CPT/HCPCS: 93244 ==

== ENCOUNTER 2024-07-17 11:20 | Outpatient (AMB) | payer OTHER, SELFPAY ==
--- NOTE | 2024-07-17 11:24 | MHC.OFFVIS ---
Vital Signs 07/17/24 11:25 Height 6 ft Weight 255 lb 11.779 oz BMI 34.7 BP 120/80 Blood Pressure Location Lt brachial Position Sitting Pulse 58 Intake Visit Reasons: f/up cardioversion Intake Note: Follow-up post cardioversion with ekg feeling good Senior Engineering Associate Required: No Allergies No Known Allergies Allergy (Verified 06/14/24 08:29) Medication List - Last Reconciled 07/17/24 by Ariel Blanco MD acetaminophen 500 mg PO Q6H PRN amiodarone 200 mg PO DAILY apixaban (Eliquis) 5 mg PO BID [AUTO PAP 6-20 CM H2O humidified AIR As directed] cholecalciferol (vitamin D3) 50 mcg PO DAILY famotidine 20 mg PO BEDTIME levothyroxine 137 mcg PO QAM lovastatin 20 mg PO DAILY metoprolol succinate ER 50 mg PO DAILY HPI Comments Details: Doug returns for follow-up regarding atrial flutter/fibrillation. Has a history of being overweight as well as obstructive sleep apnea on CPAP. No previous history of any coronary disease myocardial infarction or cardiomyopathy. He he recently underwent cardioversion for atrial fibrillation even though he denied any symptoms prior to that. However, he now states that he actually feels better and has more energy levels than before. Otherwise, feeling good. On amiodarone/Eliquis. [facility]LY [facility], [facility] Medical History Hypersomnia Tubular adenoma of colon Depression Hypercholesterolemia Obesity (BMI 30-39.9) Foot deformity Hypothyroid Surgical History Hx of tonsillectomy H/O foot surgery Peripheral vascular disease Family History Mother Breast cancer in situ Son Thyroid cancer Social History Housing: House Are you a primary day care director to a significant other at home: No Do you presently have visiting nurse or other home services: No Alcohol intake: current Alcohol intake frequency: a few times a month Patient Tobacco Use Status: Never used Tobacco Tobacco use type: Cigarette e-Cigarette/Vaping Use: Never Used Second Hand Smoke Exposure: No service: No Current occupational status: employed Cognitive needs: No Hearing needs: No Vision needs: No Review of Systems Const Denies chills, Denies fatigue, Denies fever(s), Denies frequent falls, Denies weakness, Denies weight gain and Denies weight loss ENT Denies dizziness Card Denies chest pain, Denies leg edema, Denies lightheadedness, Denies palpitations, Denies dyspnea, Denies dyspnea on exertion, Denies orthopnea and Denies other (loss of consciousness) Resp Denies cough, Denies dyspnea and Denies dyspnea on exertion GI Denies hematochezia and Denies change in stool character Musc Denies abnormal gait, Denies muscle weakness, Denies numbness, Denies radiating pain into limb and Denies tingling Neuro Denies abnormal gait, Denies dizziness, Denies frequent falls, Denies numbness, Denies tingling and Denies weakness Endo Denies fatigue and Denies palpitations Physical Exam Vital Signs: Last Vital Signs Pulse 58 07/17/24 11:25 BP 120/80 07/17/24 11:25 BMI result Body Mass Index 34.7 Const General: comfortable and no acute distress Orientation/consciousness: patient oriented x3 HEENT Other: Unremarkable Head: Yes normal to inspection Neck Neck: Yes normal visual inspection Chest Chest palpation & inspection: normal inspection of the chest Resp Auscultation: clear to auscultation bilaterally Cardio Palpation: normal PMI Heart sounds: S1 normal heart sound present, S2 normal heart sound present, no gallops, no murmurs and no rubs GI Palpation (GI): Soft to palpation Back/Spine/Pelvis Other: unremarkable Skin General skin exam: no rashes or lesions noted Neuro General: patient oriented x3 Extrem General: Yes normal to inspection Psych Mental Status: mental status grossly normal Office Procedures EKG Details: EKG with sinus bradycardia at 58/Min; AR prolongation 214 milliseconds; right bundle-branch block; cannot exclude old inferior infarct but more likely from body habitus/conduction system disease; [place]. [address]-Jtkzninwvmnxhhcro, Complete Assessment & Plan Assessment & Plan (1) Persistent atrial fibrillation: Code(s): I48.19 - Other persistent atrial fibrillation Category: Medical Plan: Cardiac studies reviewed. EKG from 2023 had shown atrial flutter but the EKG from 2024 had shown rather atrial fibrillation. He is now status post cardioversion for atrial fibrillation. Follow-up Holter shows underlying sinus rhythm with a frequent sinus bradycardia but no atrial flutter/fibrillation. In the Holter prior to that, he was in atrial fibrillation throughout. In the Holter from 2023, he was actually in sinus rhythm with an atrial fibrillation burden of only about 9%. Echocardiogram with LVEF of 55-60%. No significant valvular findings. Normal left atrial size. Myocardial perfusion imaging study with normal perfusion. Currently, status post cardioversion for atrial fibrillation. We will maintain short-term amiodarone and continue anticoagulation. We discussed about for the strategies for management including long-term arrhythmic therapy versus ablation. As he is relatively young, we will get an EP consultation for atrial fibrillation/flutter ablation. Patient is agreeable for the same. (2) Obstructive sleep apnea: Comment: Sleep study done 06/29/2023 showing moderately severe obstructive sleep apnea AHI 22 advised CPAP auto PAP mode 6-20 cm. Code(s): G47.33 - Obstructive sleep apnea (adult) (pediatric) Category: Medical Plan: Continue CPAP. Plan Discussion Notes In discussion with the patient, I recommended against prolonged use of amiodarone due to its adverse effects and transitioning to catheter ablation for better long-term atrial fibrillation control. Ablation involves significant intervention with anesthesia and disruption of abnormal cardiac pulses, offering potential to reduce medication dependency post-procedure. Risks and benefits, including medication reduction, were detailed. The patient consented to this. Await appointment with herpetology teacher. Patient was informed and verbally consented to the use of an ambient scribe for clinic note documentation during this visit. Orders: Referrals Cardiac Electrophysiology Referral I48.0 - Paroxysmal atrial fibrillation Patient Instructions: - Continue your current medications. - Continue using CPAP therapy daily. - Coordinate with the herpetology teacher for ablation procedures. - Maintain communication if symptoms reoccur or for any additional questions. Coding Level of Care Code Est Pt Level 4 (05457) Complex EM visit Add On G2211 Diagnoses Persistent atrial fibrillation I48.19 Obstructive sleep apnea G47.33 CPT Codes EKG - CPT: 33484-Jkvcvdrnlbzgsuisl, Complete ([id number])
[2024-07-17 11:25] VITALS: BP 120/80; PULSE 58; BMI 34.7
--- OUTSIDE RECORDS SUMMARY | 2024-07-17 13:01 | XMS_ITS | Patient Health Record ---
Author Organization [facility] Address [address] [place] [address] Care Team Providers Care Kineseologist Name Role Phone Po Jess PEREZ Primary Care Provider Pan Fofana [phone] Allergies No Known Allergies Reason For Referral No Information Medications Medication SIG (Take, Route, Frequency, Duration) Notes Start Date End Date Status Lovastatin 20 MG 1 tablet with the evening meal Orally Once a day for 30 day(s) Active Levothyroxine Sodium 137 MCG/ML 1 mL in the morning before breakfast Orally Once a day Active Ibuprofen 200 MG 1 tablet as needed Orally QHS/PRN Not-Taking Metoprolol Succinate 25 MG 1 capsule Ora lly Once a day Active Amiodarone HCl 200 MG 1 tablet Orally On ce a day Active Vitamin D3 50 MCG (1999 UT) 1 capsule Orally Once a day Active Famotidine 20 MG 1 tablet at bedtime as needed Orally Once a day Active Eliquis 5 MG as directed Orally twice a day Active Acetaminophen 500 MG 1 capsule as needed Orally every 6 hrs Active Immunizations Vaccine Route Administration Date Status Comme nts Influenza Unknown 12/07/2018 Administered Problems Problem Type SNOMED Code ICD Code Onset Dates Problem Status W/U Status Risk Notes Problem 000800607 Encounter for screening for malignant neoplasm of colon (Z12.11) Active confirmed Problem 035024233 History of adenomatous polyp of colon (Z86.010) Active confirmed Problem 020310872022562 Preprocedural examination (Z01.818) Active confirmed Problem Serrated polyp of colon (272464167) Serrated polyp of colon (K63.5) Active confirmed Vital Signs Blood pressure diastolic 77 mm Hg 07/16/2024 Height 71.5 in 07/16/2024 Blood pressure systolic 11 mm Hg 07/16/2024 Weight 254 lbs 07/16/2024 BMI 34.93 kg/m2 07/16/2024 Procedures Procedure Date Ordered Date Performed Result Body Sit e COLONOSCOPY 07/16/2024 N/A Encounters Encounter Location Date Provider Diagnosis [facility] [address] [place] [address] 07/16/2024 Pan Hunter History of adenomato us polyp of colon Z86.010 ; Encounter for screening for malignant neoplasm of colon Z12.11 and Serrated polyp of colon K63.5 [facility] [address] [place] [address] 07/17/2024 Pan Dale Assessments Encounter Date Diagnosis (ICD Code) Assessment Notes Treatment Notes Treatment Clinical Notes Section Notes 07/16/2024 Encounter for screening for malignant neoplasm of colon (ICD-10 - Z12.11) Overall, Doug appears well. He is not having any new or worrisome GI symptoms at the present time. I did recommend a follow-up colonoscopy for further screening given his history of both adenomatous and serrated polyps with his last colonoscopy being over 5 years ago. Full consent has been obtained from him for this, including risks of bleeding and perforation. The procedure will be done with monitored anesthesia care. He was given the below instructions regarding adjustment of his Eliquis and we will obtain clearance from Dr. Blanco as well. Given his multiple medical problems he will have a PAT appointment for the procedure. Doug was comfortable with this plan. Thank you again for allowing me to participate in Doug's care. I shall continue to keep you advised of his progress. 07/16/2024 History of adenomatous polyp of colon (ICD-10 - Z86.010) Overall, Doug appears well. He is not having any new or worrisome GI symptoms at the present time. I did recommend a follow-up colonoscopy for further screening given his history of both adenomatous and serrated polyps with his last colonoscopy being over 5 years ago. Full consent has been obtained from him for this, including risks of bleeding and perforation. The procedure will be done with monitored anesthesia care. He was given the below instructions regarding adjustment of his Eliquis and we will obtain clearance from Dr. Blanco as well. Given his multiple medical problems he will have a PAT appointment for the procedure. Doug was comfortable with this plan. Thank you again for allowing me to participate in Doug's care. I shall continue to keep you advised of his progress. 07/16/2024 Serrated polyp of colon (ICD-10 - K63.5) Overall, Doug appears well. He is not having any new or worrisome GI symptoms at the present time. I did recommend a follow-up colonoscopy for further screening given his history of both adenomatous and serrated polyps with his last colonoscopy being over 5 years ago. Full consent has been obtained from him for this, including risks of bleeding and perforation. The procedure will be done with monitored anesthesia care. He was given the below instructions regarding adjustment of his Eliquis and we will obtain clearance from Dr. Blanco as well. Given his multiple medical problems he will have a PAT appointment for the procedure. Doug was comfortable with this plan. Thank you again for allowing me to participate in Doug's care. I shall continue to keep you advised of his progress. Plan Of Treatment Pending Test Test Name Order Date COLONOSCOPY 07/16/2024 Future Test Test Name Order Date COLONOSCOPY 11/05/2013 COLONOSCOPY 01/08/2019 Next Appt Details Provider Name:Pan Hunter , 10/11/2024 09:30:00 AM, [address] [facility] , [place], [place], [id number], Insurance Providers Payer Name Payer Address Payer Phone Subscriber Number Group Number Insured Name Patient Relationship to Insured Coverage Start Date Coverage End Date [facility] [address] [place] [address] [id number] DONALDO DOUG Self - patient is the insured Medical (General) History Medical History History ICD Code Denies MD,DM,CVA,Lung disease,renal dise ase Hypothyroidism Poor circulation in LE's w ith occasional ulcers on his feet--[place] [facility] Colonoscopy 01/2014 with a s mall tubular adenoma and hyperplastic polyps removed Sleep apnea--uses CPAP Depression Hypercholesterolemia Atrial fibrillation---s/p cardioversion 06/2024 Dr. Blanco Surgical History Surgery Date(Month/Year) Laser vein surgery on his LE's for circu lation issues Foot surgery on his arches at age 13 197 4-1974 Tonsillectomy 1967
== END 2024-07-17 11:45 | disposition home or self-care (01) ==
LOC: HO.HCS 11:21
PROVIDERS: PCP Internal Medicine; Visit Provider Internal Medicine
DX: I48.19 Other persistent atrial fibrillation (principal); G47.33 Obstructive sleep apnea (adult) (pediatric)
CPT/HCPCS: 93010; 99214; G2211

== ENCOUNTER → 2024-07-17 11:20 | Outpatient (BNVA) | payer OTHER, SELFPAY | PROVIDERS: PCP Internal Medicine; Visit Provider Internal Medicine | DX: I48.19 Other persistent atrial fibrillation (principal) | CPT/HCPCS: 93005 ==

== ENCOUNTER 2024-10-11 08:23 | Day surgery (SDC) | payer OTHER, SELFPAY ==
--- OUTSIDE RECORDS SUMMARY | 2024-07-09 11:40 | XMS_ITS | Continuity of Care Document ---
Author Organization [facility] Address [address] [place] [address] Phone Care Team Providers Care Water Resources Technical Officer Name Role Phone Jimbo PEREZ, RVT, TANG, [...] Providers Copied on Encounter [facility], [address] [place], [id number], [place] tel:[phone] [facility] No Information 5 Jimbo PEREZ, RVT, TANG Perla. [address], [address], [place], [place], [id number] , [place]. tel:[phone] Office/Outpt E&M Established 15 Mins [facility], [address] [place] [address] [address] [place], [id number], [place] tel:[phone] [facility] Chronic venous htn w ulcer and inflam of bilateral low extrm 3 Derrick PEREZ FACS RVT TANG Romero. [address] [place] [address], Suite [facility], [place], [address], [place]. [phone] Referring Provider: Jess Turner MD, [address] [place] [address] [place], [address]. tel:[phone] [facility], [address] [place] [address] Dr [address] [place], [id number], [place] tel:[phone] [facility] Encntr for f/u exam aft trtmt for cond oth than malig neoplmVenous insufficiency (chronic) (peripheral) 3 Derrick PEREZ FACS RVT TANG Romero. [address], [address] [facility], [place], [address], [place]. tel:[phone] Referring Provider: Jess Turner MD, [address] [facility] [place], [address]. tel:[phone] [facility], [address] [place] [address] [address] [place], [id number], [place] tel:[phone] [facility] Venous insufficiency (chronic) (peripheral) 3 Derrick PEREZ FACS RVT TANG Romero. [address], [address], [place], [address], [place]. tel:[phone] Referring Provider: Jess Turner MD, [address] [facility] [place], [address]. tel:[phone] [facility], [address] [place] [address] [address] [place], [id number], [place] tel:[phone] [facility] No Information 3 Derrick PEREZ FACS RVT RPRONNI [address] [employer] Nick. [address], [address] [facility], [place], [address], [place]. [phone] Referring Provider: Jess Turner MD, [address] [place] [address] [place], [address]. tel:[phone] Office/Outpt E&M Established 15 Mins [facility], [address] [place] [address] [address] [place], [id number], [place] tel:[phone] [facility] Chronic venous htn w inflammation of bilateral low extrm 3 Derrick PEREZ FACS T TANG [address] [employer] Nick. [address], [address] [facility], [place], [address], [place]. [phone] Referring Provider: Jess Turner MD, [address] [place] [address] [place], [address]. tel:[phone] [facility], [address] [place] [address] [address] [place], [id number], [place] tel:[phone] [facility] Venous insufficiency (chronic) (peripheral)Pa in in right legPain in left leg 3 Derrick PEREZ FACS RVT TANG [address] [employer] Nick. [address], [address] [facility], [place], [address], [place]. [phone] Referring Provider: Jess Turner MD, [address] [facility] [place], [address]. tel:[phone] [facility], [address] [place] [address] [address] [place], [id number], [place] tel:[phone] [facility] No Information May- 3 Derrick PEREZ FACS David Romero. [address] [address], [place], [address], [place]. tel:[phone] Referring Provider: Jess Turner MD, [address] [place] [address] Dr [address] [facility] [place], [address]. tel:[phone] Office/Outpt E&M Established 15 Mins [facility], [address], [place], [id number], [place] tel:[phone] [facility] Body mass index (BMI) 33.0-33.9, adultChronic venous htn w ulcer and inflam of bilateral low extrm 3 Derrick PEREZ [facility]'SDavid Romero. [address], [address] [address], [place], [address], [place]. tel:[phone] Referring Provider: Jess Turner MD, [address] [place] [address] Dr [address] [facility] [place], [address]. tel:[phone] Family History Family Member Type Diagnosis Age At Onset No Information Payers Payer name Insurance type Covered libertarian ID Authoriza tion(s) No Information Social History [...]
--- OUTSIDE RECORDS SUMMARY | 2024-08-27 14:39 | XMS_ITS | Patient Health Record ---
Author [facility] Address [address] [place] [address] Care Team Providers Care Investment Director Name Role Phone Jess Turner Primary Care Provider Enrique KatzMiriam Unavailable [phone] Allergies No Known Allergies Reason For Referral No Information Medications Medication SIG (Take, Route, Frequency, Duration) Notes Start Date End Date Status Eliquis 5 MG as directed Orally Active Acetaminophen 500 MG 1 capsule as needed Orally every 6 hrs Active Vitamin D 50 MCG (1999 UT) 1 tablet Orally Once a day; Duration: 30 day(s) Active Ciclopirox Olamine 0.77 % 1 application Externally Twice a day; Duration: 30 days Active Levothyroxine Sodium 137 MCG 1 tablet in the morning on an empty stomach Orally Once a day Active Lovastatin 20 MG 1 tablet with the evening meal Orally Once a day; Duration: 30 day(s) Active Ciclopirox Olamine 0.77 % 1 application Externally Twice a day; Duration: 30 days 12/23/2019 Not-Taking Famotidine 20 MG 1 tablet at bedtime as needed Orally Once a day Active Amiodarone HCl 200 MG TAKE 1 TABLET BY M OUTH DAILY. START IN 2 WEEKS - AFTER 400 MG 2 TIMES DAILY IS COMPLETED Oral; Duration: 30 Days Active Jania PRN Not-Taking Metoprolol [...] W/U Status Risk Notes Problem Plantar wart (26639817) Plantar wart (B07.0) Active confirmed Problem Bilateral atherosclerosis of arteries of lower limbs (disorder) (72365751050287757 ) Unspecified atherosclerosis of [place] arteries of extremities, bilateral legs (I70.203) Active confirmed Vital Signs Blood pressure diastolic 80 mm Hg 06/17/2024 Height 6ft in 06/17/2024 Blood pressure systolic 122 mm Hg 06/17/2024 Weight 250 lbs 06/17/2024 BMI 33.9 kg/m2 06/17/2024 Procedures Procedure Date Ordered Date Performed Result Body Sit e 42850-HRRPZSS NAIL, 6 OR MORE 09/04/2023 N/A 53956-Gfev Destruction, 1-09/04/2023 N/A 08126-VHGO SKIN LESIONS, OVER 4 09/04/2023 N/A 65163-RRKNALQ NAIL, 6 OR MORE 12/11/2023 N/A 60498-Wcus Destruction, 1-14 12/11/2023 N/A 50062-Nydvpfan Plate 12/11/2023 N/A 63121-NXBX SKIN LESIONS, OVER 4 12/11/2023 N/A 45961-LQEYFNW NAIL, 6 OR MORE 03/18/2024 N/A 59292-Glui Destruction, 1-14 03/18/2024 N/A 68375-IDJX SKIN LESIONS, OVER 4 03/18/2024 N/A 64312-JXBKFNC NAIL, 6 OR MORE 06/17/2024 N/A 87401-Yvuf Destruction, 1-14 06/17/2024 N/A 80366-HGQG SKIN LESIONS, OVER 4 06/17/2024 N/A Encounters Encounter Location Date Provider Diagnosis [facility] [address] [place] [address] 09/04/2023 Miriam Black Unspecified atherosclerosis of [place] arteries of extremities, bilateral legs I70.203 ; [...] of intermetatarsal bursa of right foot M77.[address] [address] 12/11/2023 Miriam Black Unspecified atherosclerosis of [place] arteries of extremities, bilateral legs I70.203 ; [...] nail L60.0 and Metatarsalgia, left foot M77.[address] [address] 03/18/2024 Miriam Black Unspecified atherosclerosis of [place] arteries of extremities, bilateral legs I70.203 ; Tinea unguium B35.1 ; Pain in right toe(s) M79.674 ; Pain in left toe(s) M79.675 ; Plantar wart B07.0 ; Pain in right foot M79.671 and Dermatitis L30.[address] [address] 06/17/2024 Miriam Black Unspecified atherosclerosis of [place] arteries of extremities, bilateral legs I70.203 ; [...] foot M77.51 and Metatarsalgia, right foot M77.41 [facility] [place] [address] [place] [address] 06/18/2024 Miriam Gaspar Encounter Date Diagnosis (ICD Code) Assessment Notes Treatment Notes Treatment Clinical Notes Section Notes 09/04/2023 Unspecified atherosclerosis of [place] arteries of extremities, bilateral legs (ICD-10 - I70.203) 09/04/2023 Bursitis of intermetatarsal bursa of left foot (ICD-10 - M77.52) 12/11/2023 Unspecified atherosclerosis of [place] arteries of extremities, bilateral legs (ICD-10 - I70.203) 12/11/2023 Bursitis of intermetatarsal bursa of left foot (ICD-10 - M77.52) 03/18/2024 Tinea unguium (ICD-10 - B35.1) 03/18/2024 Unspecified atherosclerosis of [place] arteries of extremities, bilateral legs (ICD-10 - I70.203) 06/17/2024 Tinea unguium (ICD-10 - B35.1) 06/17/2024 Unspecified atherosclerosis of [place] arteries of extremities, bilateral legs (ICD-10 - [...] Treatment Pending Test Test Name Order Date 29445-EUUFNAK NAIL, 6 OR MORE 12/23/2019 08205-QQRNFKM NAIL, 6 OR MORE 03/30/2020 22376-AYBDVIH NAIL, 6 OR MORE 06/29/2020 39231-WJNOECW NAIL, 6 OR MORE 09/07/2020 41347-DWHTPAL NAIL, 6 OR MORE 12/14/2020 86998-SYIEUSZ NAIL, 6 OR MORE 04/05/2021 27378-SJMQICV NAIL, 6 OR MORE 07/15/2021 04706-NLSXITF NAIL, 6 OR MORE 10/21/2021 70514-AHTUFZC NAIL, 6 OR MORE 04/25/2022 28164-SQJAPLF NAIL, 6 OR MORE 07/25/2022 43969-QECAFXX NAIL, 6 OR MORE 10/24/2022 37833-FCQZDDS NAIL, 6 OR MORE 02/13/2023 47560-DFAONII NAIL, 6 OR MORE 05/22/2023 65820-MPGAQDH NAIL, 6 OR MORE 09/04/2023 66763-NGUHCNJ NAIL, 6 OR MORE 12/11/2023 44384-QCBTIWU NAIL, 6 OR MORE 03/18/2024 28332-NURHKNO NAIL, 6 OR MORE 06/17/2024 15219-Mwhi Destruction, 1-14 06/17/2024 73377-Vlpa Destruction, 1-14 12/11/2023 80704-Zawe Destruction, 1-14 03/18/2024 89124-Eyfa Destruction, 1-14 05/22/2023 13830-Aaix Destruction, 1-14 09/04/2023 14864-Yldm Destruction, 1-14 02/13/2023 42987-Msoo Destruction, 1-14 07/25/2022 19351-Vrmr Destruction, 1-14 10/24/2022 38887-Vnidlfgm Plate 04/25/2022 51754-Ppddjdbp Plate 07/15/2021 40692-Xvxnvhlz Plate 12/11/2023 80168-Amebhbaf Plate Each Additional 29216-CFBP SKIN LESIONS, OVER 4 10/22/19 53548-BALE SKIN LESIONS, OVER 4 07/16/19 22 71617-ISYO SKIN LESIONS, OVER 4 04/26/19 23 85385-XEXR SKIN LESIONS, OVER 4 07/26/19 23 92603-KDCI SKIN LESIONS, OVER 4 10/25/19 23 13273-HFVR SKIN LESIONS, OVER 4 02/13/19 24 67120-ZMMZ SKIN LESIONS, OVER 4 05/22/19 24 53584-FOLT SKIN LESIONS, OVER 4 09/04/19 24 83099-JAEM SKIN LESIONS, OVER 4 12/11/19 24 73584-SUXF SKIN LESIONS, OVER 4 03/18/19 25 67210-CCWK SKIN LESIONS, OVER 4 06/18/19 25 40516-TBUP SKIN LESIONS, 2 TO 4 12/23/19 20 17082-UYDP SKIN LESIONS, 2 TO 4 04/05/19 22 41985-ZOYQ SKIN LESIONS, 2 TO 4 12/15/19 21 12212-OUDX SKIN LESIONS, 2 TO 4 09/08/19 21 22997-BTCB SKIN LESIONS, 2 TO 4 06/30/19 21 46010-TJJL SKIN LESIONS, 2 TO 4 03/30/19 21 Next Appt Details Provider Name:Miriam Katz , 09/23/2024 11:00:00 AM, [address] [facility], [place], [address], Insurance Providers Payer Name Payer Address Payer Phone Subscriber Number Group Number Insured Name Patient Relationship to Insured Coverage Start Date Coverage End Date [facility] [address] [place], [place] [address], [place] [address] [id number] Doug Palma Self - patient is the insured Medical (General) History Medical History History ICD Code Hypothyroidism Peripheral vascular disease Foot Deformity Hypercholesterolemia Depression ulcer Poor circulation thyroid Measles Chicken pox Dr. Meza for Veins [facility] lymphatic pump for legs A fib Surgical History Surgery Date(Month/Year) foot surgery 1974 tonsillectomy leg surgery 2016 colon 2014 Tubular adenoma 2019 laset EVLT phlebectomy 2018 vein surgery right leg 2023 Cardioversion 06/30 Hospitalization History Reason Date(Month/Year) [facility] ER- AFib 05/04/23
[2024-09-27 10:05] VITALS: BMI 34.9
--- NOTE | 2024-09-27 14:54 | HO.ANESPROP2 ---
Documented by User: Dayna Carolina NP 10/09/24 14:03 HPI - Anesthesia Eval Consult details Narrative: 63 yr old male for colonoscopy s/p cardioversion with GA 06/2024 Atrial fibrillation with flutter: [place] [facility] [place] [facility] who is planning ablation 4 weeks after colonoscopy; stable on amiodorone, on eliquis GERARDO on CPAP PMFSH Active Problems Active Problems: All Active Problems Persistent atrial fibrillation (Acute) Paroxysmal atrial fibrillation (Acute) Obstructive sleep apnea (Acute) Atrial flutter (Acute) Atrial fibrillation (Acute) Ankle ulcer (Acute) Tinea pedis of both feet (Acute) Knee pain, left (Acute) GERD (gastroesophageal reflux disease) (Acute) Annual physical exam (Acute) Hypercholesterolemia (Acute) Obesity (BMI 30-39.9) (Acute) Peripheral vascular disease (Acute) Hypothyroid (Acute) Past Medical History Medical History (Updated 09/26/24 @ 09:37 by Debbie Mendoza RN) History of cardioversion GERARDO on CPAP Hypercholesterolemia GERD (gastroesophageal reflux disease) Atrial fibrillation Hypersomnia Tubular adenoma of colon Depression Hypercholesterolemia Obesity (BMI 30-39.9) Foot deformity Hypothyroid Family History Family History Mother Breast cancer in situ Son Thyroid cancer Family history of problems with anesthesia: No Surgical History Surgical History (Updated 09/26/24 @ 09:27 by Debbie Mendoza RN) H/O colonoscopy Hx of tonsillectomy H/O foot surgery Peripheral vascular disease History of Problems with Anesthesia: No Social History Social History Housing: House Are you a primary patient centered care specialist to a significant other at home: No Do you presently have visiting nurse or other home services: No Alcohol intake: current Alcohol intake frequency: a few times a month Patient Tobacco Use Status: Never used Tobacco Tobacco use type: Cigarette e-Cigarette/Vaping Use: Never Used Second Hand Smoke Exposure: No Use of substances other than those prescribed or required for medical reasons: No Have you been hit, kicked, punched, or otherwise hurt by someone within the past year? If so, by whom?: No Spiritual Healthcare Practices: no Zoroastrianism Healthcare Practices: no Cultural Healthcare Practices: no Are you DNR?: No Advance Directives: No (aughter is primary contact) Poor oral hygiene: No service: No Current occupational status: employed Cognitive needs: No Hearing needs: No Vision needs: No Meds Allergies Allergy/AdvReac Type Severity Reaction Status Date / Time No Known Allergies Allergy Verified 06/14/24 08:29 Home Medications ?Medication ?Instructions ?Recorded ?Confirmed ?Last Taken ?Type acetaminophen 500 mg tablet 500 mg PO Q6H PRN Pain (Scale 04/28/20 09/27/24 Unknown History Score 1-3) cholecalciferol (vitamin D3) 50 50 mcg PO DAILY 04/28/20 09/26/24 Unknown History mcg (2,000 unit) capsule amiodarone 200 mg tablet 200 mg PO QPM 09/27/24 09/27/24 Unknown History metoprolol succinate 50 mg 50 mg PO QPM 09/27/24 09/27/24 Unknown History tablet,extended release 24 hr Exam Height,Weight and Vital Signs: Height 5 ft 11.5 in Weight 115.212 kg Narrative Narrative: EKG 09/26/24 Sinus rhythm with 1st degree A-V block, rate 64 Right bundle branch block Procedure Date: 05/20/2024 Procedure Type: Transthoracic Echocardiogram Location: OP Height: 182.88 cm Weight: 113.4 kg BSA: 2.34 m2 Heart Rate: bpm BP: 128 / 72 mmHg Group Supervisor Yard: SERA Schultz MD: Ariel Blanco MD Director Of Intercollegiate Athletics: Jorge Darling MD Symptoms: I48.91 - Unspecified atrial fibrillation Study Quality: Adequate/limited ordered for LVEF eval ECG Rhythm: Atrial Fibrillation Conclusions: - Normal LV ejection fraction 55-60% with moderate asymmetric septal hypertrophy Assessment and Plan Final Anesthetic Review Family History of Problems with Anesthesia: No History of Problems with Anesthesia: No Documented by User: Patricia Beltran MD 10/11/24 08:47 [facility] Past Medical History Medical History (Updated 09/26/24 @ 09:37 by Debbie Mendoza RN) History of cardioversion GERARDO on CPAP Hypercholesterolemia GERD (gastroesophageal reflux disease) Atrial fibrillation Hypersomnia Tubular adenoma of colon Depression Hypercholesterolemia Obesity (BMI 30-39.9) Foot deformity Hypothyroid Family History Family History Mother Breast cancer in situ Son Thyroid cancer Surgical History Surgical History (Updated 09/26/24 @ 09:27 by Debbie Mendoza RN) H/O colonoscopy Hx of tonsillectomy H/O foot surgery Peripheral vascular disease Social History Social History Housing: House Are you a primary patient centered care specialist to a significant other at home: No Do you presently have visiting nurse or other home services: No Alcohol intake: current Alcohol intake frequency: a few times a month Patient Tobacco Use Status: Never used Tobacco Tobacco use type: Cigarette e-Cigarette/Vaping Use: Never Used Second Hand Smoke Exposure: No Use of substances other than those prescribed or required for medical reasons: No Have you been hit, kicked, punched, or otherwise hurt by someone within the past year? If so, by whom?: No Spiritual Healthcare Practices: no Zoroastrianism Healthcare Practices: no Cultural Healthcare Practices: no Are you DNR?: No Advance Directives: No (aughter is primary contact) Poor oral hygiene: No service: No Current occupational status: employed Cognitive needs: No Hearing needs: No Vision needs: No Meds Allergies Allergy/AdvReac Type Severity Reaction Status Date / Time No Known Allergies Allergy Verified 06/14/24 08:29 Home Medications ?Medication ?Instructions ?Recorded ?Confirmed ?Last Taken ?Type acetaminophen 500 mg tablet 500 mg PO Q6H PRN Pain (Scale 04/28/20 09/27/24 Unknown History Score 1-3) cholecalciferol (vitamin D3) 50 50 mcg PO DAILY 04/28/20 09/26/24 Unknown History mcg (2,000 unit) capsule amiodarone 200 mg tablet 200 mg PO QPM 09/27/24 09/27/24 Unknown History metoprolol succinate 50 mg 50 mg PO QPM 09/27/24 09/27/24 Unknown History tablet,extended release 24 hr Exam Airway Mallampati Class: II TM Dist: >3cm Neck ROM: Full Heart: rrr Lungs: cta Assessment and Plan Assessment Anesthesia Assessment: Anesthesia Plan Discussed and Chart Reviewed Final Anesthetic Review NPO: Yes ASA Class: III Final Preanesthetic Review: No Changes in Pt Med Stat, Meds/Allgs Chart Reviewed and Consent Obtained/Reviewed Patient Risk: Low Procedure Risk: Low Anesthetic Plan Anesthetic Plan: MAC: Disposition: Standard PACU
[2024-10-11 08:49] VITALS: BP 138/74; PULSE 67; RESP 12; TEMP 36.9; O2SAT 97
[2024-10-11] MEDS: Lactated Ringers 1,000 ML 100 ML IVCONT (08:51)
[2024-10-11 10:59] VITALS: BP 123/69; PULSE 56; RESP 16; TEMP 36.4; O2SAT 91
--- NOTE | 2024-10-11 11:03 | PM.OP ---
Brief Operative Note Date of Service: 10/11/24 Pre-op diagnosis: Screening Post-op diagnosis: other (Polyps) Procedure: Colonoscopy to the cecum with hot snare polypectomy x 2 at 20cm with placement of 1 Resolution clip at each site Surgeon: Pan Hunter MD Anesthesia: MAC Was an Gas Meter Installer used for this Procedure?: No Estimated blood loss (mL): 0 Pathology: other (A. Polyps at 20cm) Condition: stable Disposition: PACU
[2024-10-11 11:14] VITALS: BP 115/54; PULSE 57; RESP 18; TEMP 36.6; O2SAT 92
--- NOTE | 2024-10-11 21:24 | OP_ITS ---
DATE OF SERVICE: 10/11/2024 SURGEON: Pan Hunter MD INDICATIONS: The patient presents for followup of personal history of colon polyps and need for colorectal cancer screening. Full consent was obtained from him for this, including risks of bleeding and perforation. PREOPERATIVE DIAGNOSIS: POSTOPERATIVE DIAGNOSIS: Colorectal cancer screening and personal history of colon polyps, colon polyps, diverticulosis, and internal hemorrhoids. PROCEDURE PERFORMED: Colonoscopy to cecum with hot snare polypectomy x 2 with placement of 1 Resolution clip on each polypectomy site. ESTIMATED BLOOD LOSS: COMPLICATIONS: ANESTHESIA: Medications used, monitored anesthesia care. ASSISTANTS: SPECIMENS: PREOPERATIVE DIAGNOSES: Colorectal cancer screening and personal history of colon polyps. DESCRIPTION OF PROCEDURE: The patient was placed in the left lateral decubitus position. The digital rectal exam revealed no abnormalities. The Olympus video pediatric colonoscope was entered into the rectum and advanced easily to the cecum. Once in the cecum, I did identify normal-appearing cecal pouch with appendiceal orifice and a normal-appearing ileocecal valve. After a lot of irrigation and suctioning, I was able to get a good visualization of the cecum and this appeared normal. The scope was then slowly withdrawn assessing all mucosal surfaces carefully. For the most part, preparation was excellent throughout the colon, although some areas did require some irrigation and suctioning. There were scattered diverticulae in the ascending colon, transverse colon, and a mild amount of diverticulae in the sigmoid colon. I did not visualize any sign of colitis nor angiodysplasia. At 20 cm there were 2 polyps. These were both approximately 10 mm in size and were both removed with hot snare polypectomy and recovered by suction. Both polypectomy sites appeared clean, without any sign of residual polyp nor bleeding. A single Resolution clip was applied to each polypectomy site with good deployment and good hemostasis. In the rectum, scope was retroflexed visualizing internal hemorrhoids, but no other pathology. The rectal mucosa appeared normal. Scope was straightened and withdrawn from the patient. He tolerated the procedure well and was returned to recovery area in stable condition. IMPRESSION: 1. Colon polyps. 2. Diverticulosis. 3. Internal hemorrhoids. PLAN: I would recommend a repeat colonoscopy in 5 years for further surveillance. He was advised to resume his Eliquis on October 13. He was advised to stay off all aspirin and NSAIDs long-term while he is on the Eliquis. He will otherwise see me on a p.r.n. basis. MD SCARLETT Sharp/LAUREN / [id number] MTDD
== END 2024-10-11 11:37 | disposition home or self-care (01) ==
PROVIDERS: PCP Internal Medicine; Visit Provider Internal Medicine
PROC: 0DJD8ZZ Inspection of Lower Intestinal Tract, Via Natural or Artificial Opening Endoscopic (ICD-10-PCS; CPT 45378; principal; 2024-10-11 09:30)
DX: Z12.11 Encounter for screening for malignant neoplasm of colon (principal); Z86.0101 Personal history of adenomatous and serrated colon polyps; K63.5 Polyp of colon; G47.33 Obstructive sleep apnea (adult) (pediatric); K57.30 Diverticulosis of large intestine without perforation or abscess without bleeding; K64.8 Other hemorrhoids; I48.91 Unspecified atrial fibrillation; E78.00 Pure hypercholesterolemia, unspecified; E03.9 Hypothyroidism, unspecified; Z79.01 Long term (current) use of anticoagulants; Z79.899 Other long term (current) drug therapy; Z99.89 Dependence on other enabling machines and devices; F32.A Depression, unspecified; Z98.890 Other specified postprocedural states
CPT/HCPCS: 45385; 88305; J2003; J2250; J2704

== ENCOUNTER 2024-11-25 13:04 | Outpatient (AMB) | payer OTHER, SELFPAY ==
--- NOTE | 2024-11-25 13:07 | A.OFFVIS_ITS ---
Vital Signs 11/25/24 13:09 Height 5 ft 11 in Weight 257 lb 0.944 oz BMI 35.8 BP 120/66 Blood Pressure Location Lt brachial Pulse 64 Pulse Source Monitor Intake Visit Reasons: Follow up after Cardioversion Accompanied by: Self / Same As Patient Allergies No Known Allergies Allergy (Verified 11/25/24 13:13) Medication List - Last Reconciled 11/25/24 by Ariel Blanco MD acetaminophen 500 mg PO Q6H PRN amiodarone 200 mg PO QPM apixaban (Eliquis) 5 mg PO BID [AUTO PAP 6-20 CM H2O humidified AIR As directed] cholecalciferol (vitamin D3) 50 mcg PO DAILY famotidine 20 mg PO BEDTIME levothyroxine 137 mcg PO QAM lovastatin 20 mg PO DAILY metoprolol succinate ER 25 mg PO QPM HPI Comments Details: Doug returns for follow-up regarding atrial flutter/fibrillation. Has a history of being overweight as well as obstructive sleep apnea on CPAP. No previous history of any coronary disease myocardial infarction or cardiomyopathy. He underwent cardioversion for atrial fibrillation and subsequently refer to EP. Last week, he had ablation for flutter/fibrillation. Overall, he states he feels fine. No specific concerns. There is some bruising in the groin access site which is improving. Still on amiodarone/Eliquis. [facility] Medical History History of cardioversion GERARDO on CPAP Hypercholesterolemia GERD (gastroesophageal reflux disease) Atrial fibrillation Hypersomnia Tubular adenoma of colon Depression Hypercholesterolemia Obesity (BMI 30-39.9) Foot deformity Hypothyroid Surgical History (Updated 11/25/24 @ 13:12 by Praneeth Choudhary CNA) History of cardiac ablation for atrial fibrillation H/O colonoscopy Hx of tonsillectomy H/O foot surgery Peripheral vascular disease Family History Mother Breast cancer in situ Son Thyroid cancer Social History Housing: House Are you a primary prompt care rn to a significant other at home: No Do you presently have visiting nurse or other home services: No Alcohol intake: current Alcohol intake frequency: a few times a month Patient Tobacco Use Status: Never used Tobacco Tobacco use type: Cigarette e-Cigarette/Vaping Use: Never Used Second Hand Smoke Exposure: No service: No Current occupational status: employed Cognitive needs: No Hearing needs: No Vision needs: No Review of Systems Const Denies daytime sleepiness, Denies difficulty sleeping, Denies snoring, Denies stops breathing during sleep and Denies weakness Card Denies chest pain, Denies rapid heart rate, Denies irregular heart rhythm, Denies claudication, Denies leg edema, Denies lightheadedness, Denies palpitations, Denies dyspnea, Denies dyspnea on exertion, Denies orthopnea, Denies paroxysmal nocturnal dyspnea and Denies slow heart rate Resp Denies cough, Denies dyspnea, Denies dyspnea on exertion and Denies snoring GI Reports no additional complaints, Denies hematochezia, Denies change in stool character and Denies dyspepsia Musc Denies abnormal gait, Denies muscle weakness and Denies numbness Neuro Denies abnormal gait, Denies numbness and Denies weakness Endo Denies palpitations Physical Exam Vital Signs: Last Vital Signs Pulse 64 11/25/24 13:09 BP 120/66 11/25/24 13:09 BMI result Body Mass Index 35.8 Const General: comfortable and no acute distress Orientation/consciousness: patient oriented x3 HEENT Other: Unremarkable Head: Yes normal to inspection Neck Neck: Yes normal visual inspection Chest Chest palpation & inspection: normal inspection of the chest Resp Auscultation: clear to auscultation bilaterally Cardio Palpation: normal PMI Heart sounds: S1 normal heart sound present, S2 normal heart sound present, no gallops, no murmurs and no rubs GI Palpation (GI): Soft to palpation Back/Spine/Pelvis Other: unremarkable Skin General skin exam: no rashes or lesions noted Neuro General: patient oriented x3 Extrem Other: Bruising in the left groin but no obvious bruit on auscultation. General: Yes normal to inspection Psych Mental Status: mental status grossly normal Office Procedures EKG Details: EKG with underlying sinus rhythm at 64/Min; right bundle-branch block pattern; [place] [address]-Bocheesohzmhlwvyw, Complete Assessment & Plan Assessment & Plan (1) Persistent atrial fibrillation: Code(s): I48.19 - Other persistent atrial fibrillation Category: Medical Plan: Cardiac studies reviewed. Status post atrial fibrillation/flutter ablation from last week. Previously underwent cardioversion. We will check with EP regarding duration of Amiodarone, but hopefully, should be able to stop soon. Anticoagulation for about 3 months or so and may not need long-term. Echocardiogram with LVEF of 55-60%. No significant valvular findings. Normal left atrial size. Myocardial perfusion imaging study with normal perfusion. (2) Obstructive sleep apnea: Comment: Sleep study done 06/29/2023 showing moderately severe obstructive sleep apnea AHI 22 advised CPAP auto PAP mode 6-20 cm. Code(s): G47.33 - Obstructive sleep apnea (adult) (pediatric) Category: Medical Plan: Continue CPAP. Coding Level of Care Code Est Pt Level 4 (90868) Complex EM visit Add On G2211 Diagnoses Persistent atrial fibrillation I48.19 Obstructive sleep apnea G47.33 CPT Codes EKG - CPT: 87219-Bvhjxirsrkufmfkzs, Complete ([id number])
[2024-11-25 13:09] VITALS: BP 120/66; PULSE 64; BMI 35.8
== END 2024-11-25 13:30 | disposition home or self-care (01) ==
LOC: HO.HCS 13:05
PROVIDERS: PCP Internal Medicine; Visit Provider Internal Medicine
DX: I48.19 Other persistent atrial fibrillation (principal); G47.33 Obstructive sleep apnea (adult) (pediatric)
CPT/HCPCS: 93010; 99214; G2211

== ENCOUNTER 2024-11-25 13:04 | Outpatient (REF) | payer OTHER, SELFPAY ==
--- OUTSIDE RECORDS SUMMARY | 2024-10-11 05:30 | XMS_ITS ---
Author Organization [facility] Address [address] [place] [address] Care Team Providers Care Middle School Pe Teacher Name Role Phone Jess Turner MD Primary Care Provider Pan Fofana [phone] REASON FOR VISIT screening,hx adenomatous polyp, serrated polyp Encounters Encounter Location Date Provider Diagnosis [facility] [place] [address] [place] [phone] 10/11/2024 Pan Hunter Plan Of Treatment No Information Progress Notes * CALIN FULTONDOB: (64 yo M)Acc No.[id number]:10/11/2024 COLON WITH MAC Patient: CALIN MARQUEZ Provider: Randall Hunter MD :1960 A ge:64 Y S ex:Male Date:10/11/2024 Address:[address] [place], [place] [phone] Pcp:Jess Turner MD Subjective: * Chief Complaints: [...] 10/11/2024 Generated for Printi ng/Faxing/eTransmitting on: 1 04:40 PM EDT
[2024-11-25 13:40] LABS: MANUAL DIFF FLAG NO
[2024-11-25 14:03] LABS: Hematocrit 44.9 % (42.0-52.0); Hemoglobin 14.3 g/dl (14.0-18.0); Imm Gran Abs Auto 0.21 X10*3/uL (0.00-0.03); Imm Gran Pct Auto 2.7 % (0.0-0.4); Lymphocytes Absolute Auto 1.2 X10*3/uL (1.2-4.9); Mean Corpuscular HGB Conc 31.8 g/dl (31.0-36.0); Mean Corpuscular Hemoglobin 31.1 pg (27.0-33.0); Mean Corpuscular Volume 97.6 fL (80.0-98.0); NRBC Abs Auto 0.000 X10*3/uL (0.0-0.012); NRBC Pct Auto 0.0 /100WBC (0.0-0.2); Platelet Count 237 X10*3/uL (160-400); Red Blood Count 4.60 X10*6/uL (4.60-5.80); White Blood Count 7.8 X10*3/uL (4.8-10.8)
[2024-11-25 14:55] LABS: Alanine Aminotransferase 39 U/L (0-40); Albumin Level 4.2 g/dL (3.5-5.0); Alkaline Phosphatase 86 U/L (39-117); Anion Gap 11 (12-20); Aspartate Amino Transferase 27 U/L (5-37); Blood Urea Nitrogen 24 mg/dL (9-16); Calcium 8.8 mg/dL (8.4-10.2); Carbon Dioxide 28 mmol/L (22-29); Chloride 106 mmol/L (96-108); Estimated Glomerular Filt Rate > 60; Potassium 4.2 mmol/L (3.3-5.1); Sodium 141 mmol/L (135-145); Total Protein 6.8 g/dL (6.5-8.0)
[2024-11-25 15:13] LABS: Free T4 (Free Thyroxine) 1.67 ng/dL (0.71-1.85); Thyroid Stimulating Hormone 1.10 uIU/mL (0.32-4.0)
--- OUTSIDE RECORDS SUMMARY | 2024-11-25 16:41 | XMS_ITS | Patient Health Record ---
Author Organization [facility] Address [address] [place] [address] Care Team Providers Care Creative Writing English Professor Name Role Phone Jess Turner Primary Care Provider Enrique gomez Miriam Katz Unavailable [phone] Allergies No Known Allergies Reason For Referral No Information Medications Medication SIG (Take, Route, Frequency, Duration) Notes Start Date End Date Status Acetaminophen 500 MG 1 capsule as needed Orally every 6 hrs Active Eliquis 5 MG as directed Orally Active Lovastatin 20 MG 1 tablet with the evening meal Orally Once a day; Duration: 30 day(s) Active Levothyroxine Sodium 137 MCG 1 tablet in the morning on an empty stomach Orally Once a day Active Ciclopirox Olamine 0.77 % 1 application Externally Twice a day; Duration: 30 days 12/23/2019 Not-Taking Jania PRN Not-Taking Metoprolol Succinate 50 MG 1 capsule Orally Once a day Active Famotidine 20 MG 1 tablet at bedtime as needed Orally Once a day Active Vitamin D 50 MCG (1999 UT) 1 tablet Orally Once a day; Duration: 30 day(s) Active Amiodarone HCl 200 MG TAKE 1 TABLET BY M OUTH DAILY. START IN 2 WEEKS - AFTER 400 MG 2 TIMES DAILY IS COMPLETED Oral; Duration: 30 Days Active Ciclopirox Olamine 0.77 % 1 application Externally Twice a day; Duration: 30 days Active Immunizations Vaccine Route Administration Date Status Comme nts Influenza Unknown 10/08/2023 Administered COVID-19 Jeevan & Jeevan/Gi Unknown 12/07/2020 Administered [...] Are you an other tobacco user? No AUDIT-C (Standard) Question Answer Notes Did you have a drink containing alcohol in the p ast year? No Points 0 Interpretation Negative Problems Problem Type SNOMED Code ICD Code Onset Dates Problem Status W/U Status Risk Notes Problem Plantar wart (46833719) Plantar wart (B07.0) Active confirmed Problem Bilateral atherosclerosis of arteries of lower limbs (disorder) (92699548751010329 ) Unspecified atherosclerosis of ambler arteries of extremities, bilateral legs (I70.203) Active confirmed Vital Signs Blood pressure diastolic 80 mm Hg 09/23/2024 Height 6ft in 09/23/2024 Blood pressure systolic 121 mm Hg 09/23/2024 Weight 250 lbs 09/23/2024 BMI 33.9 kg/m2 09/23/2024 Procedures Procedure Date Ordered Date Performed Result Body Sit e 10277-EPUIQIY NAIL, 6 OR MORE 12/11/2023 N/A 29084-Gllq Destruction, 1-12/11/2023 N/A 96204-Bmdumtat Plate 12/11/2023 N/A 25101-YZBL SKIN LESIONS, OVER 4 12/11/2023 N/A 15945-XKFWSGH NAIL, 6 OR MORE 03/18/2024 N/A 92069-Shvj Destruction, 1-03/18/2024 N/A 82365-JPXB SKIN LESIONS, OVER 4 03/18/2024 N/A 40975-TIFMCCM NAIL, 6 OR MORE 06/17/2024 N/A 18046-Xvlc Destruction, 1-06/17/2024 N/A 67806-TLBL SKIN LESIONS, OVER 4 06/17/2024 N/A 60482-OQJCVST NAIL, 6 OR MORE 09/23/2024 N/A 97209-IDLD SKIN LESIONS, OVER 4 09/23/2024 N/A Encounters Encounter Location Date Provider Diagnosis [address] [address] 12/11/2023 Miriam Black Unspecified atherosclerosis of ambler arteries of extremities, bilateral legs I70.203 ; [...] nail L60.0 and Metatarsalgia, left foot M77.[address] [address] 03/18/2024 Miriam Black Unspecified atherosclerosis of ambler arteries of extremities, bilateral legs I70.203 ; Tinea unguium B35.1 ; Pain in right toe(s) M79.674 ; Pain in left toe(s) M79.675 ; Plantar wart B07.0 ; Pain in right foot M79.671 and Dermatitis L30.[address] [address] 06/17/2024 Miriam Black Unspecified atherosclerosis of ambler arteries of extremities, bilateral legs I70.203 ; [...] foot M77.51 and Metatarsalgia, right foot M77.[address] [facility] [address] 09/23/2024 Miriam Katz Unspecified atherosclerosis of ambler arteries of extremities, bilateral legs I70.203 ; Tinea unguium B35.1 ; Pain in right toe(s) M79.674 ; Pain in left toe(s) M79.675 ; Plantar wart B07.0 ; Bursitis of intermetatarsal bursa of left foot M77.52 ; Metatarsalgia of left foot M77.42 ; Bursitis of intermetatarsal bursa of right foot M77.51 and Metatarsalgia, right foot M77.[address] [address] 06/18/2024 Miriam Katz Assessments Encounter Date Diagnosis (ICD Code) Assessment Notes Treatment Notes Treatment Clinical Notes Section Notes 12/11/2023 Unspecified atherosclerosis of ambler arteries of extremities, bilateral legs (ICD-10 - I70.203) 12/11/2023 Bursitis of intermetatarsal bursa of left foot (ICD-10 - M77.52) 03/18/2024 Tinea unguium (ICD-10 - B35.1) 03/18/2024 Unspecified atherosclerosis of ambler arteries of extremities, bilateral legs (ICD-10 - I70.203) 06/17/2024 Tinea unguium (ICD-10 - B35.1) 06/17/2024 Unspecified atherosclerosis of ambler arteries of extremities, bilateral legs (ICD-10 - I70.203) 09/23/2024 Tinea unguium (ICD-10 - B35.1) 09/23/2024 Unspecified atherosclerosis of ambler arteries of extremities, bilateral legs (ICD-10 - I70.203) 09/23/2024 Pain in right toe(s) (ICD-10 - M79.674) 06/17/2024 Pain in right toe(s) (ICD-10 - M79.674) 03/18/2024 Pain in right toe(s) (ICD-10 - M79.674) 12/11/2023 Tinea unguium (ICD-10 - B35.1) 12/11/2023 Pain in right toe(s) (ICD-10 - M79.674) 03/18/2024 Pain in left toe(s) (ICD-10 - M79.675) 06/17/2024 Pain in left toe(s) (ICD-10 - M79.675) 09/23/2024 Pain in left toe(s) (ICD-10 - M79.675) 09/23/2024 Plantar wart (ICD-10 - B07.0) 03/18/2024 Plantar wart (ICD-10 - B07.0) 06/17/2024 Plantar wart (ICD-10 - B07.0) 12/11/2023 Pain in left toe(s) (ICD-10 - M79.675) 12/11/2023 Plantar wart (ICD-10 - B07.0) 03/18/2024 Pain in right foot (ICD-10 - M79.671) 06/17/2024 Pain in right foot (ICD-10 - M79.671) 09/23/2024 Bursitis of intermetatarsal bursa of left foot (ICD-10 - M77.52) 09/23/2024 Metatarsalgia of left foot (ICD-10 - M77.42) 03/18/2024 Dermatitis (ICD-10 - L30.9) 06/17/2024 Pain in left foot (ICD-10 - M79.672) 12/11/2023 Pain in right foot (ICD-10 - M79.671) 12/11/2023 Plantar flexed metatarsal bone of right foot (ICD-10 - M21.6X1) 06/17/2024 Pain in left ankle and joints of left foot (ICD-10 - M25.572) 09/23/2024 Bursitis of intermetatarsal bursa of right foot (ICD-10 - M77.51) 09/23/2024 Metatarsalgia, right foot (ICD-10 - M77.41) 06/17/2024 Bursitis of intermetatarsal bursa of left foot (ICD-10 - M77.52) 12/11/2023 Plantar flexed metatarsal bone of left foot (ICD-10 - M21.6X2) 12/11/2023 Bursitis of intermetatarsal bursa of right [...] Treatment Pending Test Test Name Order Date 78711-IPMYWRL NAIL, 6 OR MORE 12/23/2019 17429-LIOBICW NAIL, 6 OR MORE 03/30/2020 90414-IDEZWRR NAIL, 6 OR MORE 06/29/2020 11934-EMZYSWQ NAIL, 6 OR MORE 09/07/2020 81968-LXTSMBF NAIL, 6 OR MORE 12/14/2020 27862-YOFWWHU NAIL, 6 OR MORE 04/05/2021 89650-XOEJQBU NAIL, 6 OR MORE 07/15/2021 99674-XVADLZH NAIL, 6 OR MORE 10/21/2021 37192-NNHSEUM NAIL, 6 OR MORE 04/25/2022 37832-HAPXGIM NAIL, 6 OR MORE 07/25/2022 71150-VKHXHVZ NAIL, 6 OR MORE 10/24/2022 98849-WAXXSJC NAIL, 6 OR MORE 02/13/2023 56733-CTQEBKI NAIL, 6 OR MORE 05/22/2023 08568-NUERTWR NAIL, 6 OR MORE 09/04/2023 23565-KOXTULG NAIL, 6 OR MORE 12/11/2023 32349-NBVJOJX NAIL, 6 OR MORE 03/18/2024 93982-RAURJWS NAIL, 6 OR MORE 06/17/2024 65539-QPQSDVG NAIL, 6 OR MORE 09/23/2024 09031-Tjnq Destruction, 1-14 06/17/2024 93813-Wwuf Destruction, 1-14 12/11/2023 38719-Xpie Destruction, 1-14 03/18/2024 24307-Boqy Destruction, 1-14 05/22/2023 85982-Ysoh Destruction, 1-14 09/04/2023 51203-Yxok Destruction, 1-14 02/13/2023 50303-Xuad Destruction, 1-14 07/25/2022 48947-Cipw Destruction, 1-14 10/24/2022 73976-Fwdnutvl Plate 04/25/2022 41841-Tplwwdgn Plate 07/15/2021 49408-Wxldysdr Plate 12/11/2023 13680-Weieoywp Plate Each Additional 66066-KFHO SKIN LESIONS, OVER 4 10/22/19 32857-QNNJ SKIN LESIONS, OVER 4 07/16/19 22 52868-AJXH SKIN LESIONS, OVER 4 04/26/19 23 23174-ASGX SKIN LESIONS, OVER 4 07/26/19 23 66846-JGON SKIN LESIONS, OVER 4 10/25/19 23 59401-CGNT SKIN LESIONS, OVER 4 02/13/19 24 01012-RKXW SKIN LESIONS, OVER 4 05/22/19 24 47416-EDSI SKIN LESIONS, OVER 4 09/04/19 24 12735-EFEF SKIN LESIONS, OVER 4 12/11/19 24 80351-BQFG SKIN LESIONS, OVER 4 03/18/19 25 48425-KQUT SKIN LESIONS, OVER 4 06/18/19 25 40862-DCVF SKIN LESIONS, OVER 4 09/24/19 25 28679-YRKE SKIN LESIONS, 2 TO 4 12/23/19 20 72491-ZDRO SKIN LESIONS, 2 TO 4 04/05/19 22 14274-ATCM SKIN LESIONS, 2 TO 4 12/15/19 21 74777-PKZD SKIN LESIONS, 2 TO 4 09/08/19 21 92626-UWKQ SKIN LESIONS, 2 TO 4 06/30/19 21 90956-IHRY SKIN LESIONS, 2 TO 4 03/30/19 21 Next Appt Details Provider Name:Miriam Katz , 12/23/2024 03:15:00 PM, [address] [facility], [place], [address], Insurance Providers Payer Name Payer Address Payer Phone Subscriber Number Group Number Insured Name Patient Relationship to Insured Coverage Start Date Coverage End Date [address] [place] [address] [id number] Doug Palma Self - patient is the insured Medical (General) History Medical History History ICD Code Hypothyroidism Peripheral vascular disease Foot Deformity Hypercholesterolemia Depression ulcer Poor circulation thyroid Measles Chicken pox Dr. Meza for Veins [facility] Care lymphatic pump for legs A fib Surgical History Surgery Date(Month/Year) foot surgery 1974 tonsillectomy leg surgery 2016 colon 2014 Tubular adenoma 2019 laset EVLT phlebectomy 2018 vein surgery right leg 2023 Cardioversion 06/30 Hospitalization History Reason Date(Month/Year) [facility] ER- AFib 05/04/23
--- OUTSIDE RECORDS SUMMARY | 2024-11-25 16:41 | XMS_ITS | Patient Health Record ---
Author Organization [facility] Address [address] [place] [address] Care Team Providers Care Manager Cargo Name Role Phone Po Jess PEREZ Primary Care Provider Pan Fofana [phone] Allergies No Known Allergies Results Component Value Reference Range Notes Pathology (Not yet reviewed by provider) Interpretation: Performing Lab:[facility], [address] [place] [phone] Notes/Report: Reason For Referral No Information Medications Medication SIG (Take, Route, Frequency, Duration) Notes Start Date End Date Status Lovastatin 20 MG 1 tablet with the evening meal Orally Once a day; Duration: 30 day(s) Active Levothyroxine Sodium 137 MCG/ML 1 mL in the morning before breakfast Orally Once a day Active Ibuprofen 200 MG 1 tablet as needed Orally QHS/PRN Not-Taking Metoprolol Succinate 25 MG 1 capsule Ora lly Once a day Active Amiodarone HCl 200 MG 1 tablet Orally On ce a day Active Vitamin D3 50 MCG (1999) 1 capsule Orally Once a day Active [...] Problem Status W/U Status Risk Notes Problem Screening for malignant neoplasm of colon (338986339) Encounter for screening for malignant neoplasm of colon (Z12.11) Active confirmed Problem History of adenomatous polyp of colon (460365799) History of adenomatous polyp of colon (Z86.010) Active confirmed Problem Preprocedural examination (518704948441402) Preprocedural examination (Z01.818) Active confirmed Problem Serrated polyp of colon (041098819) Serrated polyp of colon (K63.5) Active confirmed Vital Signs Blood pressure diastolic 77 mm Hg 07/16/2024 Height 71.5 in 07/16/2024 Blood pressure systolic 11 mm Hg 07/16/2024 Weight 254 lbs 07/16/2024 BMI 34.93 kg/m2 07/16/2024 Procedures Procedure Date Ordered Date Performed Result Body Sit e COLONOSCOPY 07/16/2024 N/A Encounters Encounter Location Date Provider Diagnosis [facility] [address] [place], [place] [phone] 10/11/2024 Pan Hunter [facility] [address] [facility] [address] [place] [address] 07/16/2024 Pan Hunter History of adenomatous polyp of colon Z86.010 ; Serrated polyp of colon K63.5 and Encounter for screening for malignant neoplasm of colon Z12.11 [facility] [address] [place] [address] 07/17/2024 Pan Hunter Assessments Encounter Date Diagnosis (ICD Code) Assessment Notes Treatment Notes Treatment Clinical Notes Section Notes 07/16/2024 History of adenomatous polyp of colon [...] keep you advised of his progress. 07/16/2024 Encounter for screening for malignant neoplasm [...] Test Test Name Order Date COLONOSCOPY 07/16/2024 Pathology 10/11/2024 Future Test Test Name Order Date COLONOSCOPY 11/05/2013 COLONOSCOPY 01/08/2019 Insurance Providers Payer Name Payer Address Payer Phone Subscriber Number Group Number Insured Name Patient Relationship to Insured Coverage Start Date Coverage End Date [facility] [address] [place] [address] [id number] GABRIELLERAUDEL DOUG Self - patient is the insured Medical (General) History Medical History History ICD Code Denies MT,DM,CVA,Lung disease,renal dise ase Hypothyroidism Poor circulation in LE's w ith occasional ulcers on his feet- goes to [facility] Colonoscopy 01/2014 with a s mall tubular adenoma and hyperplastic polyps removed Sleep apnea- uses CPAP Depression Hypercholesterolemia Atrial fibrillation- -s/p cardioversion 06/2024 Dr. Blanco Colonoscopy 02/2019 with a serrated polyp removed Surgical History Surgery Date(Month/Year) Laser vein surgery on his LE's for circu lation issues Foot surgery on his arches at age 13 197 -1974 Tonsillectomy 1967
== END 2024-11-25 13:05 | disposition home or self-care (01) ==
LOC: HO.LAB 13:04
PROVIDERS: Absent Provider Internal Medicine; PCP Internal Medicine; Visit Provider Internal Medicine
DX: I48.19 Other persistent atrial fibrillation (principal); G47.33 Obstructive sleep apnea (adult) (pediatric); Z79.01 Long term (current) use of anticoagulants
CPT/HCPCS: 36415; 80053; 84439; 84443; 85025; 93005

== ENCOUNTER 2024-11-28 08:52 | Outpatient (AMB) | payer OTHER, SELFPAY ==
--- OUTSIDE RECORDS SUMMARY | 2024-10-11 05:30 | XMS_ITS ---
Author Organization [facility] Address [address] [place] [address] Care Team Providers Care Senior Quality Assurance Analyst Name Role Phone Jess Turner MD Primary Care Provider Pan Fofana [phone] REASON FOR VISIT screening,hx adenomatous polyp, serrated polyp Encounters Encounter Location Date Provider Diagnosis [facility] Outpatient [address] [place] [phone] 10/11/2024 Pan Hunter Plan Of Treatment No Information Progress Notes * CALIN FULTONDOB: (64 yo M)Acc No.[id number]:10/11/2024 COLON WITH MAC Patient: CALIN MARQUEZ Provider: Randall Hunter MD :1960 A ge:64 Y S ex:Male Date:10/11/2024 Address:[address] [place], [place] [phone] Pcp:Jess Turner MD Subjective: * Chief Complaints: * 1 . Screening,hx adenomatous polyp, serrated polyp. * Medical History: Objective: * Vitals: Assessment: Plan: * Treatment: * * The named appointment provid er may or may not be the originator of this progress note, and it is not deemed complete until electronically signed by the appointment provider. Sign off status: Pending * Provider: Randall Hunter MD Date: 0 10/11/2024 Generated for Printi ng/Faxing/eTransmitting on: 1 09:35 AM EDT
[2024-11-28 08:57] VITALS: BP 124/80; PULSE 65; O2SAT 95; BMI 36.0
--- NOTE | 2024-11-28 08:57 | MHC.PC.OV ---
Vital Signs 11/28/24 08:57 Height 5 ft 11 in Weight 258 lb 2 oz BMI 36.0 BP 124/80 Blood Pressure Location Lt brachial Position Sitting Pulse 65 Pulse Source Pulse Oximeter Pulse Oximetry (%) 95 Oxygen Delivery Method Room Air Intake Visit Reasons: annual exam - see comments Manager Truck Required: No Accompanied by: Self / Same As Patient Allergies No Known Allergies Allergy (Verified 11/28/24 08:57) Medication List - Last Reconciled 11/28/24 by Jess Turner MD acetaminophen 500 mg PO Q6H PRN amiodarone 200 mg PO QPM apixaban (Eliquis) 5 mg PO BID ascorbate calcium (vitamin C) 500 mg PO DAILY [AUTO PAP 6-20 CM H2O humidified AIR As directed] cholecalciferol (vitamin D3) 50 mcg PO DAILY famotidine 20 mg PO BEDTIME levothyroxine 137 mcg PO QAM lovastatin 20 mg PO DAILY metoprolol succinate ER 25 mg PO QPM nutritional supplements ea PO Tobacco use date assessed: 11/28/24 Dental Screening Dental Screen Date: 11/28/24 Did you have a dental visit in the last 12 months?: Yes Did you have a dental problem in the last 6 months where you did not have access to dental care?: No Was dental information given to patient?: Patient has dentist [facility] Medical History History of cardioversion GERARDO on CPAP Hypercholesterolemia GERD (gastroesophageal reflux disease) Atrial fibrillation Hypersomnia Tubular adenoma of colon Depression Hypercholesterolemia Obesity (BMI 30-39.9) Foot deformity Hypothyroid Surgical History History of cardiac ablation for atrial fibrillation H/O colonoscopy Hx of tonsillectomy H/O foot surgery Peripheral vascular disease Family History Mother Breast cancer in situ Son Thyroid cancer Social History (Updated 11/28/24 @ 09:42 by Jess Turner MD) Housing: House Are you a primary home visit field care manager to a significant other at home: No Do you presently have visiting nurse or other home services: No Alcohol intake: current Alcohol intake frequency: a few times a month Comment: beer QOweek Patient Tobacco Use Status: Never used Tobacco Tobacco use type: Cigarette e-Cigarette/Vaping Use: Never Used Second Hand Smoke Exposure: No service: No Current occupational status: employed Cognitive needs: No Hearing needs: No Vision needs: No Questionnaire PHQ-9 Over the last 2 weeks, how often have you been bothered by any of the following problems? 1. Little interest or pleasure in doing things: not at all 2. Feeling down, depressed, or hopeless: not at all 3. Trouble falling or staying asleep, or sleeping too much: not at all 4. Feeling tired or having little energy: not at all 5. Poor appetite or overeating: not at all 6. Feeling bad about yourself - or that you are a failure or have let yourself or your family down: not at all 7. Trouble concentrating on things, such as reading the newspaper or watching television: not at all 8. Moving or speaking so slowly that other people could have noticed. Or the opposite - being so fidgety or restless that you have been moving around a lot more than usual: not at all 9. Thoughts that you would be better off or of hurting yourself in some way: not at all Total score: 0 Source: Developed by Drs. Pan Stone, Desire Ann, Jonathan Gutierrez and colleagues, with an educational tal from [employer]. Thrive Questionnaire Date Thrive assessed: 11/28/24 I am a: Patient What is your living situation today?: I have a steady place to live Within the past 12 months, did the food you bought not last and you didn't have the money to get more?: Never true Within the past 12 months, did you worry whether your food would run out before you got money to buy more?: Never true Do you have trouble paying for medicines?: No Do you have trouble getting transportation to medical appointments?: No Do you have trouble paying your heating and electricity bill?: No Do you have trouble taking care of your child, family member or friend?: No Do you have trouble with day-to-day activities such as bathing, preparing meals, shopping, managing finances, etc.?: No Are you currently unemployed and looking for a job?: No Are you interested in more education?: No Please select the resources that you would like help with: None Currently or been in a relationship where the following occur: No concerns reported THRIVE Score: 0 AUDIT C Alcohol Use Questionnaire (AUDIT-C) 1. How often do you have a drink containing alcohol?: 2-4 times a month 2. How many drinks containing alcohol do you have on a typical day when you are drinking?: 1 or 2 3. How often do you have six or more drinks on one occasion?: Never Total Score: 2 MAGDA-7 AMB Questionnaire MAGDA-7 Date MAGDA - 7 assessed: 05/23/24 Feeling nervous, anxious, or on edge: 0 = Not at all Not being able to stop or control worryin = Not at all Worrying too much about different things: 0 = Not at all Trouble relaxin = Not at all Being so restless that it is hard to sit still: 0 = Not at all Becoming easily annoyed or irritable: 0 = Not at all Feeling afraid as if something awful might happen: 0 = Not at all Total MAGDA-7 score (0-4 normal; 5-9 mild; 10-14 moderate; 15-21 severe): 0 Source: Developed by Drs. Pan Stone, Desire Ann, Jonathan Gutierrez and colleagues, with an educational tal from [employer]. Review of Systems Const Denies poor appetite and Denies weakness Eyes Denies no additional complaints ENT Reports Normal hearing present, Denies dizziness, Denies nasal congestion, Denies tinnitus and Denies sore throat Card Denies chest pain, Denies syncope, Denies rapid heart rate and Denies dyspnea Resp Denies cough and Denies dyspnea GI Denies change in stool character, Reports constipation, Denies diarrhea, Denies nausea and Denies vomiting Denies dysuria and Denies urinary frequency Neuro Reports Normal hearing present, Denies confusion, Denies dizziness, Denies syncope and Denies weakness Psych Denies confusion Physical exam (Primary Care) Vital Signs: Last Vital Signs Pulse 65 11/28/24 08:57 BP 124/80 11/28/24 08:57 Pulse Ox 95 11/28/24 08:57 Oxygen Delivery Method Room Air 11/28/24 08:57 BMI result Body Mass Index 36.0 Tobacco/Smoking Status: Tobacco use Status Tobacco use date assessed 11/28/24 11/28/24 08:58 Patient Tobacco Use Status Never used Tobacco 11/28/24 09:42 Tobacco use type Cigarette 11/28/24 09:42 e-Cigarette/Vaping Use Never Used 11/28/24 09:42 PHQ-9: PHQ-9 Score PHQ-9: Total score 0 11/28/24 09:37 Thrive Assessment: Date of Thrive Assessment Date Thrive assessed 11/28/24 11/28/24 08:58 Currently or been in a relationship where the following occur: No concerns reported Const General: No confusion Orientation/consciousness: No confusion HENMT Head: Yes normocephalic Ears: external ears normal and TM's normal bilaterally Face and sinus: Yes normal facial exam Mouth: moist mucous membranes Throat: Yes tonsils normal Eyes Conjunctivae: conjunctivae normal Pupils: Equal, round and reactive pupils present and Pupil accommodation reflex normal Direct Ophthalmoscopy: normal light reflex Neck Neck: No lymphadenopathy Thyroid: Thyroid normal Chest Chest palpation & inspection: normal inspection of the chest Resp Effort & Inspection: normal respiratory effort and no audible wheezes Auscultation: clear to auscultation bilaterally, no crackles, no wheezes and lung sounds not diminished Cardio Rate: regular rate Rhythm: regular rhythm Peripheral pulses: radial pulses present and dorsalis pedis present GI Palpation (GI): no masses Auscultation: normal bowel sounds and normoactive bowel sounds Rectal Exam - Male: Yes deferred Skin General skin exam: no rashes or lesions noted Rashes: no rashes Neuro General: No confusion Cranial nerves: Yes Equal, round and reactive pupils present and Yes Normal hearing present Cognition (Neuro): normal cognition Gait exam (Neuro): Normal gait present Motor exam (neuro): 5/5 motor strength present throughout Deep tendon reflexes (DTR's): Right brachioradialis reflex intensity grade: 2+, Left brachioradialis reflex intensity grade: 2+, Right patellar reflex intensity grade: 2+ and Left patellar reflex intensity grade: 2+ Extrem General: No edema Coding Level of Care Code Est Pt Prev Care 40-64y(28641) Diagnoses Annual physical exam Z00.00 Atrial fibrillation I48.91 Peripheral vascular disease I73.9 Hypercholesterolemia E78.00 Acquired hypothyroidism E03.9 Hypothyroidism type: acquired Obesity (BMI 30-39.9) E66.9 GERD (gastroesophageal reflux disease) K21.9 Obstructive sleep apnea G47.33 Assessment & Plan Assessment & Plan (1) Annual physical exam: Code(s): Z00.00 - Encounter for general adult medical examination without abnormal findings Category: Medical Plan: Patient is advised to eat healthy, keep well hydrated, keep active and have adequate sleep. (2) Atrial fibrillation: Comment: May 2023 Code(s): I48.91 - Unspecified atrial fibrillation Category: Medical Plan: Continue with anticoagulation with Eliquis and is on amiodarone. Patient did have the pulmonary vein isolation (3) Peripheral vascular disease: Comment: Dr. RUTHERFORD leg procedure laser EV LT Phlebectomy October 2017 Venous ablation right lower extremity Dr. Rojas 09/21/2023 Varithena ablation January Code(s): I73.9 - Peripheral vascular disease, unspecified Category: Surgical Plan: When sitting down elevate the legs, exercise, and support stockings patient follows up with vascular status post EVLT (4) Hypercholesterolemia: Code(s): E78.00 - Pure hypercholesterolemia, unspecified Category: Medical Plan: Avoid fried foods, chicken skin, eggs, butter margarine, pastries and meat. Be it pork or beef they have a lot of cholesterol on lovastatin 20 mg once a day LDL goal of less than 70 and triglyceride of less than 150 (5) Hypothyroid: Code(s): E03.9 - Hypothyroidism, unspecified Category: Medical Qualifiers: Hypothyroidism type: acquired Qualified Code(s): E03.9 - Hypothyroidism, unspecified Plan: Continue with thyroid medication (6) Obesity (BMI 30-39.9): Code(s): E66.9 - Obesity, unspecified Category: Medical Plan: Diet and exercise (7) GERD (gastroesophageal reflux disease): Code(s): K21.9 - Gastro-esophageal reflux disease without esophagitis Category: Medical Plan: Avoid the foods that causes that usually spicy foods, tomato products, juices, coffee, soda and foods that your sensitive to. After eating do not lie down, allow 3-4 hours before in lie down. And keep the head of bed above 30 degrees to avoid the acid from going up. (8) Obstructive sleep apnea: Comment: Sleep study done 06/29/2023 showing moderately severe obstructive sleep apnea AHI 22 advised CPAP auto PAP mode 6-20 cm. Code(s): G47.33 - Obstructive sleep apnea (adult) (pediatric) Category: Medical Plan: Continue to use the CPAP more than 4 hours a night and benefits from this. Plan History of Present Illness The patient is a 64-year-old male presenting for a follow-up visit. The patient has a history of hypothyroidism, which has been managed with thyroid medication, and recent blood work indicates that thyroid levels are stable. He also has peripheral vascular disease and has undergone endovenous laser treatment of the great saphenous vein. The patient has hypercholesterolemia, managed with a low-dose statin, and recent cholesterol levels show an LDL of 72 mg/dL. He has a history of gastroesophageal reflux disease (GERD), which is controlled with famotidine. The patient has atrial fibrillation and has undergone pulmonary vein isolation. He is on anticoagulation therapy with Eliquis and amiodarone to manage this condition. The patient has obstructive sleep apnea and uses a CPAP machine regularly. He also has a history of depression, for which he is taking an antidepressant. In terms of preventative care, the patient had a colonoscopy in October 2024, which revealed a hyperplastic polyp that was removed. Health Maintenance - Colonoscopy in October 2024 with hyperplastic polyp removal - Regular use of CPAP for obstructive sleep apnea - Management of hypercholesterolemia with statin therapy - Anticoagulation therapy with Eliquis for atrial fibrillation Social History - Alcohol use: Consumes a beer every other week - Non-smoker and no use of recreational drugs Review of Systems - General: Denies fever, dizziness, or nausea - Cardiovascular: Denies chest pain or palpitations - Respiratory: Denies shortness of breath or cough - Gastrointestinal: Reports occasional heartburn, controlled with medication - Genitourinary: Denies dysuria or hematuria - Neurological: Denies headaches or balance issues Physical Exam General: Cooperative, healthy appearing, comfortable, no acute distress and well developed Orientation: Patient oriented x3 Limitations: No limitations Head: Normal to inspection Ears: Hearing grossly normal bilaterally Nose: Normal external nose present Face and sinus: Normal facial exam Eyes: Appearance normal, both eyes and all related structures Neck: Normal visual inspection and Yes full ROM Respiratory: Normal respiratory effort and able to speak in complete sentences. Clear to auscultation bilaterally Cardiovascular: Regular rate and rhythm. Normal S1 and S2 GI: Normal to inspection. Soft to palpation and nontender Skin: No rashes or lesions noted Neuro: Patient oriented x3 Extremities: Normal to inspection Results - Labs: Normal blood count, normal electrolytes, renal function stable at 1.09, normal liver function, LDL cholesterol at 72 mg/dL - Procedures: Colonoscopy in October 2024 with hyperplastic polyp removal Plan Patient was informed and verbally consented to the use of an ambient scribe for clinic note documentation during this visit. 1. Hypothyroidism The patient's hypothyroidism is managed with thyroid medication, and recent lab results indicate stable thyroid levels. 2. Peripheral Vascular Disease The patient has undergone endovenous laser treatment for the great saphenous vein and continues to follow up with senior branch manager. 3. Hypercholesterolemia The patient is on a low-dose statin, with recent LDL levels at 72 mg/dL, and the goal is to maintain LDL below 70 mg/dL. 4. Gastroesophageal Reflux Disease (Gerd) GERD is managed with famotidine, and the patient reports that symptoms are controlled with this medication. 5. Atrial Fibrillation The patient is on anticoagulation therapy with Eliquis and amiodarone following pulmonary vein isolation to manage atrial fibrillation. 6. Obstructive Sleep Apnea The patient uses a CPAP machine regularly to manage obstructive sleep apnea. 7. Depression The patient is taking an antidepressant to manage depression, with no reported side effects. 8. Preventative Care: Colonoscopy The patient underwent a colonoscopy in October 2024, which revealed a hyperplastic polyp that was removed. Discussion Notes Patient Instructions - Continue taking all prescribed medications as directed. - Use CPAP machine regularly for sleep apnea management. - Follow up with vascular specialist as scheduled. - Schedule next colonoscopy as advised by your healthcare provider. Orders: Orders Complete Blood Count Auto Diff 4 Months I48.19 - Other persistent atrial fibrillation Comprehensive Met. Panel Today I48.19 - Other persistent atrial fibrillation Thyroid Stimulating Hormone 4 Months I48.19 - Other persistent atrial fibrillation Lipid Panel Today E78.00 - Pure hypercholesterolemia, unspecified, I48.19 - Other persistent atrial fibrillation Vitamin B12 and Folate Today I48.19 - Other persistent atrial fibrillation Free T4 (Free Thyroxine) Today I48.19 - Other persistent atrial fibrillation Prostate Specific Antigen Scr Today I48.19 - Other persistent atrial fibrillation Hemoglobin A1c Today I48.19 - Other persistent atrial fibrillation
--- OUTSIDE RECORDS SUMMARY | 2024-11-28 09:36 | XMS_ITS | Patient Health Record ---
Author Organization [facility] Address [address] [place] [address] Care Team Providers Care Wringer Operator Name Role Phone Po Jess PEREZ Primary Care Provider Pan Fofana [phone] Allergies No Known Allergies Results Component Value Reference Range Notes Pathology (Not yet reviewed by provider) Interpretation: Performing Lab:[facility], [address] [place] [id number] Notes/Report: Reason For Referral No Information Medications [...] Problem Screening for malignant neoplasm of colon (864069065) Encounter for screening for malignant neoplasm of colon (Z12.11) Active confirmed Problem History of adenomatous polyp of colon (551020855) History of adenomatous polyp of colon (Z86.010) Active confirmed Problem Preprocedural examination (867499201356291) Preprocedural examination (Z01.818) Active confirmed Problem Serrated polyp of colon (440614188) Serrated polyp of colon (K63.5) Active confirmed Vital Signs Blood pressure diastolic 77 mm Hg 07/16/2024 Height 71.5 in 07/16/2024 Blood pressure systolic 11 mm Hg 07/16/2024 Weight 254 lbs 07/16/2024 BMI 34.93 kg/m2 07/16/2024 Procedures Procedure Date Ordered Date Performed Result Body Sit e COLONOSCOPY 07/16/2024 N/A Encounters Encounter Location Date Provider Diagnosis [facility] Out[facility] [address], [place] [id number] 10/11/2024 Pan [facility] [address] [facility] [address] [place] [id number] 07/16/2024 Pan Hunter History of adenomatous polyp of colon Z86.010 ; Serrated polyp of colon K63.5 and Encounter for screening for malignant neoplasm of colon Z12.11 [facility] [address] [place] [id number] 07/17/2024 Pan Hunter Assessments Encounter Date Diagnosis [...] Insured Coverage Start Date Coverage End Date [facility] [address] [place] [address] [id number] GABRIELLERAUDEL DOUG Self - patient is the insured Medical (General) History Medical History History ICD Code Denies VT,DM,CVA,Lung disease,renal dise ase Hypothyroidism Poor circulation in LE's w ith occasional ulcers on his feet- goes to [facility] W[facility] Colonoscopy 01/2014 with a s [...]
--- OUTSIDE RECORDS SUMMARY | 2024-11-28 09:36 | XMS_ITS | Patient Health Record ---
Author Organization [facility] Address [address] [place] [address] Care Team Providers [employer] Name Role Phone Jess Turner Primary Care Provider Enrique gomez Miriam Katz Unavailable [phone] Allergies No Known Allergies Reason For Referral [...] W/U Status Risk Notes Problem Plantar wart (94105923) Plantar wart (B07.0) Active confirmed Problem Bilateral atherosclerosis of arteries of lower limbs (disorder) (80511157096568233 ) Unspecified atherosclerosis of lummi arteries of extremities, bilateral legs (I70.203) Active confirmed Vital Signs Blood pressure diastolic 80 mm Hg 09/23/2024 Height 6ft in 09/23/2024 Blood pressure systolic 121 mm Hg 09/23/2024 Weight 250 lbs 09/23/2024 BMI 33.9 kg/m2 09/23/2024 Procedures Procedure Date Ordered Date Performed Result Body Sit e 04227-MTFPTSY NAIL, 6 OR MORE 12/11/2023 N/A 39952-Qqaf Destruction, 1-12/11/2023 N/A 65401-Qufwbpvu Plate 12/11/2023 N/A 73621-VACF SKIN LESIONS, OVER 4 12/11/2023 N/A 52205-DEABLLW NAIL, 6 OR MORE 03/18/2024 N/A 76721-Soyl Destruction, 1-03/18/2024 N/A 25110-PYIV SKIN LESIONS, OVER 4 03/18/2024 N/A 57503-KZQWXBF NAIL, 6 OR MORE 06/17/2024 N/A 21940-Cnyq Destruction, 1-06/17/2024 N/A 42883-AQUL SKIN LESIONS, OVER 4 06/17/2024 N/A 74437-RGIWYFM NAIL, 6 OR MORE 09/23/2024 N/A 76125-BENH SKIN LESIONS, OVER 4 09/23/2024 N/A Encounters Encounter Location Date Provider Diagnosis [address] [address] 12/11/2023 Miriam Black Unspecified atherosclerosis of lummi arteries of extremities, bilateral legs I70.203 ; [...] nail L60.0 and Metatarsalgia, left foot M77.[address] [address] 03/18/2024 Miriam Black Unspecified atherosclerosis of lummi arteries of extremities, bilateral legs I70.203 ; Tinea unguium B35.1 ; Pain in right toe(s) M79.674 ; Pain in left toe(s) M79.675 ; Plantar wart B07.0 ; Pain in right foot M79.671 and Dermatitis L30.[address] [address] 06/17/2024 Miriam Black Unspecified atherosclerosis of lummi arteries of extremities, bilateral legs I70.203 ; [...] M77.51 and Metatarsalgia, right foot M77.[address] [facility] [address] 09/23/2024 Miriam Katz Unspecified atherosclerosis of lummi arteries of extremities, bilateral legs I70.203 ; Tinea unguium B35.1 ; Pain in right toe(s) M79.674 ; Pain in left toe(s) M79.675 ; Plantar wart B07.0 ; Bursitis of intermetatarsal bursa of left foot M77.52 ; Metatarsalgia of left foot M77.42 ; Bursitis of intermetatarsal bursa of right foot M77.51 and Metatarsalgia, right foot M77.[address] [address] 06/18/2024 Miriam Katz Assessments Encounter Date Diagnosis (ICD Code) Assessment Notes Treatment Notes Treatment Clinical Notes Section Notes 12/11/2023 Unspecified atherosclerosis of lummi arteries of extremities, bilateral legs (ICD-10 - I70.203) 12/11/2023 Bursitis of intermetatarsal bursa of left foot (ICD-10 - M77.52) 03/18/2024 Tinea unguium (ICD-10 - B35.1) 03/18/2024 Unspecified atherosclerosis of lummi arteries of extremities, bilateral legs (ICD-10 - I70.203) 06/17/2024 Tinea unguium (ICD-10 - B35.1) 06/17/2024 Unspecified atherosclerosis of lummi arteries of extremities, bilateral legs (ICD-10 - I70.203) 09/23/2024 Tinea unguium (ICD-10 - B35.1) 09/23/2024 Unspecified atherosclerosis of lummi arteries of extremities, bilateral legs (ICD-10 - [...] Treatment Pending Test Test Name Order Date 80833-PSBMRMV NAIL, 6 OR MORE 12/23/2019 41121-HKFNLHE NAIL, 6 OR MORE 03/30/2020 41757-AQMAYYQ NAIL, 6 OR MORE 06/29/2020 87402-OVCGSON NAIL, 6 OR MORE 09/07/2020 20006-EAHJBCY NAIL, 6 OR MORE 12/14/2020 74815-CJSYQPT NAIL, 6 OR MORE 04/05/2021 32553-YZQJUFJ NAIL, 6 OR MORE 07/15/2021 51367-KZAIXTE NAIL, 6 OR MORE 10/21/2021 51139-JMKXFQA NAIL, 6 OR MORE 04/25/2022 93795-MZWSTJB NAIL, 6 OR MORE 07/25/2022 70799-GIRZOIM NAIL, 6 OR MORE 10/24/2022 28258-QTSVRDK NAIL, 6 OR MORE 02/13/2023 07518-ICMFQKW NAIL, 6 OR MORE 05/22/2023 37394-MGOINUY NAIL, 6 OR MORE 09/04/2023 25441-VCLJRTP NAIL, 6 OR MORE 12/11/2023 90614-EZJWIFD NAIL, 6 OR MORE 03/18/2024 20815-FHHGPSC NAIL, 6 OR MORE 06/17/2024 75125-RBNNTHC NAIL, 6 OR MORE 09/23/2024 68173-Afqh Destruction, 1-14 06/17/2024 80740-Uibe Destruction, 1-14 12/11/2023 99686-Jbvk Destruction, 1-14 03/18/2024 98806-Sdkf Destruction, 1-14 05/22/2023 48770-Azno Destruction, 1-14 09/04/2023 28687-Nobe Destruction, 1-14 02/13/2023 53273-Ynsu Destruction, 1-14 07/25/2022 39752-Apjt Destruction, 1-14 10/24/2022 22826-Erjtmtbl Plate 04/25/2022 91936-Bfawpbwn Plate 07/15/2021 30554-Lntgiagm Plate 12/11/2023 08460-Grniqlod Plate Each Additional 29480-MHGV SKIN LESIONS, OVER 4 10/22/19 99172-VYYR SKIN LESIONS, OVER 4 07/16/19 22 24792-NYLS SKIN LESIONS, OVER 4 04/26/19 23 30815-FTRE SKIN LESIONS, OVER 4 07/26/19 23 49847-WFSK SKIN LESIONS, OVER 4 10/25/19 23 99483-WHRZ SKIN LESIONS, OVER 4 02/13/19 24 17860-BCQM SKIN LESIONS, OVER 4 05/22/19 24 09774-UFAF SKIN LESIONS, OVER 4 09/04/19 24 36413-ARKY SKIN LESIONS, OVER 4 12/11/19 24 03098-IGAX SKIN LESIONS, OVER 4 03/18/19 25 95802-ENBX SKIN LESIONS, OVER 4 06/18/19 25 16048-RWAI SKIN LESIONS, OVER 4 09/24/19 25 23793-SDLG SKIN LESIONS, 2 TO 4 12/23/19 20 35911-YYZU SKIN LESIONS, 2 TO 4 04/05/19 22 34009-YDSV SKIN LESIONS, 2 TO 4 12/15/19 21 40400-GYVE SKIN LESIONS, 2 TO 4 09/08/19 21 47049-UZRL SKIN LESIONS, 2 TO 4 06/30/19 21 88589-KBKF SKIN LESIONS, 2 TO 4 03/30/19 21 Next Appt Details Provider Name:Miriam Katz , 12/23/2024 03:15:00 PM, [address] [facility], [place], [address], Insurance Providers Payer Name Payer Address Payer Phone Subscriber Number Group Number Insured Name Patient Relationship to Insured Coverage Start Date Coverage End Date [address] [place] [address] [id number] Doug Palma Self - patient is the insured Medical (General) History Medical History History ICD Code Hypothyroidism Peripheral vascular disease Foot Deformity Hypercholesterolemia Depression ulcer Poor circulation thyroid Measles Chicken pox [place] [facility] [place] [place] lymphatic pump for legs A fib Surgical History Surgery Date(Month/Year) foot surgery 1974 tonsillectomy leg surgery 2016 colon 2014 Tubular adenoma 2019 laset EVLT phlebectomy 2018 vein surgery right leg 2023 Cardioversion 06/30 [place]ization History Reason Date[place] [facility] [place]
== END 2024-11-28 09:59 | disposition home or self-care (01) ==
LOC: HO.HMCH 08:52
PROVIDERS: PCP Internal Medicine; Visit Provider Internal Medicine
DX: Z00.00 Encounter for general adult medical examination without abnormal findings (principal); I48.91 Unspecified atrial fibrillation; E66.9 Obesity, unspecified; Z68.36 Body mass index [BMI] 36.0-36.9, adult; I73.9 Peripheral vascular disease, unspecified; E78.00 Pure hypercholesterolemia, unspecified; E03.9 Hypothyroidism, unspecified; K21.9 Gastro-esophageal reflux disease without esophagitis; G47.33 Obstructive sleep apnea (adult) (pediatric)